=== PATIENT | male | born 1990 | race Caucasian/White ===

== ENCOUNTER 2017-02-23 02:15 | Emergency (ER) | payer OTHER ==
[2017-02-23 02:27] VITALS: RESP 18
--- NOTE | 2017-02-23 02:49 | ED ---
General Adult HPI - General Chief complaint: Wound/Laceration Stated complaint: Ankle Laceration Time Seen by Provider: 02/23/17 02:25 Source: patient, RN notes reviewed Mode of arrival: ambulatory Limitations: no limitations - History of Present Illness Initial comments: Patient is a pleasant 27-year-old male presenting to the emergency department complaining of laceration. Patient was going to bed when he stepped on a glass bowl. Patient states this was a large glass bowl and it did break. Patient sustained laceration to his right lateral ankle. Patient believes he lost a decent amount of blood and did feel near syncopal. Patient states he feels fine at this time except for laceration. Bleeding was active when patient arrived per nursing staff and they did apply a dressing. Patient states he soaked through 2 towels earlier. Last immunization for tetanus was less than 5 years. - Related Data Home Medications Medication Instructions Recorded Confirmed Albuterol Inhaler [Ventolin 1 - 2 puff INHALATION Q4-6H PRN 03/31/14 09/14/15 Inhaler] Dextroamphetamine/Amphetamine 30 mg PO BID 03/31/14 09/14/15 [Adderall] Previous Rx's Medication Instructions Recorded Hydrocodone/Acetaminophen [[place] 1 each PO Q4HR PRN #12 tab 08/21/15 5-325] Naproxen 500 mg PO Q12HR #30 tab 08/21/15 Methocarbamol [Robaxin-750] 750 mg PO TID PRN #30 tablet 09/06/15 predniSONE 50 mg PO DAILY #5 tab 09/14/15 traMADol HCl [Ultram] 50 mg PO Q4H PRN #15 tab 09/14/15 Cephalexin [Keflex] 500 mg PO QID #40 cap 02/23/17 Allergies Allergy/AdvReac Type Severity Reaction Status Date / Time Penicillins Allergy Unknown Verified 02/23/17 02:27 Review of Systems ROS Statement: Those systems with pertinent positive or pertinent negative responses have been documented in the HPI. ROS Other: All systems not noted in ROS Statement are negative. Constitutional: Denies: fever Eyes: Denies: eye pain ENT: Denies: ear pain Respiratory: Denies: cough Cardiovascular: Denies: chest pain Endocrine: Denies: fatigue Gastrointestinal: Denies: abdominal pain Genitourinary: Denies: dysuria Musculoskeletal: Denies: back pain Skin: Denies: rash Neurological: Denies: headache Past Medical History Past Medical History: Asthma Additional Past Medical History / Comment(s): back pain History of Any Multi-Drug Resistant Organisms: None Reported Past Surgical History: Adenoidectomy, Tonsillectomy Past Psychological History: ADD/ADHD Smoking Status: Never smoker Past Alcohol Use History: None Reported Past Drug Use History: None Reported General Exam Limitations: no limitations General appearance: alert, in no apparent distress Head exam: Present: atraumatic Eye exam: Present: normal appearance, PERRL ENT exam: Present: normal oropharynx Neck exam: Present: normal inspection Respiratory exam: Present: normal lung sounds bilaterally Cardiovascular Exam: Present: regular rate, normal rhythm Expanded Peripheral pulses: 2+: Posterior Tibialis (R), Posterior Tibialis (L), Dorsalis Pedis (R), Dorsalis Pedis (L) GI/Abdominal exam: Present: soft. Absent: tenderness Extremities exam: Present: other (Right lateral ankle posterior to the lateral malleolus with 3 cm laceration. Distally the extremity is neurovascularly intact. Hematomas present underneath without active bleeding. Achilles tendon is not involved. Good strength.) Neurological exam: Present: alert Psychiatric exam: Present: normal affect, normal mood Skin exam: Present: other (Laceration) Course Vital Signs 02/23/17 02/23/17 02/23/17 02:15 02:37 03:15 Temperature 97.0 F L Pulse Rate 72 64 65 Respiratory 18 20 18 Rate Blood Pressure 114/57 99/55 151/100 O2 Sat by Pulse 99 99 64 L Oximetry Procedures - Laceration Laceration #1 Consent Obtained: verbal consent Time Out Performed: Yes Indication: laceration Site: lower extremity Size (cm): 3 Description: linear Depth: simple, single layer Anesthetic Used: lidocaine 1% Pre-repair: wound explored, irrigated extensively Type of Sutures: nylon, other (Also placed 2 of 5-0 Vicryl subcutaneous) Size of Sutures: 4-0 Number of Sutures: 5 Technique: simple, interrupted Patient Tolerated Procedure: well, no complications Medical Decision Making - Radiology Data Radiology results: image reviewed (X-ray of the right ankle shows no acute findings. No foreign body.) Disposition Clinical Impression: Laceration Disposition: HOME SELF-CARE Condition: Stable Instructions: Laceration (ED), Care For Your Stitches (ED) Additional Instructions: Please follow-up with primary care physician in the next couple days for recheck. Suture removal in 12-14 days. Twice daily wash area with soap and water, apply antibiotic ointment, and bandage. Return for increased pain, weakness, redness, fever, swelling, worsening symptoms or other concerns. Prescriptions: Cephalexin [Keflex] 500 mg PO QID #40 cap Referrals: Nicko Monzon DO [Primary Care Provider] - 1-2 days Time of Disposition: 03:20
--- NOTE | 2017-02-23 03:16 | XR ---
EXAM: XR Right Ankle Complete, 3 or More Views CLINICAL HISTORY: Reason: Pain TECHNIQUE: Frontal, lateral and oblique views of the right ankle. COMPARISON: No relevant prior studies available. FINDINGS: Bones/joints: Unremarkable. No acute fracture. No dislocation. Soft tissues: Unremarkable. IMPRESSION: No acute findings
[2017-02-23] MEDS ORDERED: CEPHALEXIN 500 MG CAP PO STA (03:21)
[2017-02-23 03:53] VITALS: BP 103/74; PULSE 78; TEMP 97.8
== END 2017-02-23 03:48 | disposition home or self-care (01) ==
LOC: EC 02:15
DX: S91.011A Laceration without foreign body, right ankle, initial encounter (principal); F90.9 Attention-deficit hyperactivity disorder, unspecified type; Z88.0 Allergy status to penicillin; Z79.899 Other long term (current) drug therapy; W25.XXXA Contact with sharp glass, initial encounter
CPT/HCPCS: 12002; 99283

== ENCOUNTER 2018-01-08 12:44 | Emergency (ER) | payer OTHER ==
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
[2018-01-08 14:28] LABS: Amphetamine Screen,Urine Detected (NotDetected); Barbiturate Screen,Urine Not Detected (NotDetected); Benzodiazepines Screen,Urine Detected (NotDetected); Cocaine Screen,Urine Not Detected (NotDetected); Methadone Screen, Urine Not Detected (NotDetected); Opiate Screen,Urine Detected (NotDetected); Oxycodone Screen, Urine Not Detected (NotDetected); Phencyclidine Screen,Urine Not Detected (NotDetected); Tricyclic Antidepressant,Urine Not Detected (NotDetected); Urn Cannabinoid Scrn Detected (NotDetected)
[2018-01-08 15:35] LABS: Appearance,Urine Clear (Clear); Bilirubin,Urine Negative (Negative); Blood,Urine Negative (Negative); Color,Urine Light Yellow; Glucose,Urine (UA) Negative (Negative); Ketones,Urine Negative (Negative); Leukocyte Esterase,Urine Negative (Negative); Nitrite,Urine Negative (Negative); Protein,Urine Negative (Negative); Specific Gravity,Urine 1.011 (1.001-1.035); Urobilinogen,Urine <2.0 mg/dL (<2.0)
[2018-01-08 15:56] LABS: HGB 15.6 gm/dL (13.0-17.5); MCH 31.4 pg (25.0-35.0); MCV 92.4 fL (80.0-100.0); Platelet Count 206 k/uL (150-450); RBC 4.98 m/uL (4.30-5.90); RDW 13.2 % (11.5-15.5); WBC 6.7 k/uL (3.8-10.6)
[2018-01-08 16:05] LABS: ALT 30 U/L (21-72); AST 22 U/L (17-59); Albumin 4.4 g/dL (3.5-5.0); Alkaline Phosphatase 67 U/L (38-126); Anion Gap 13 mmol/L; Blood Urea Nitrogen 11 mg/dL (9-20); Calcium 9.2 mg/dL (8.4-10.2); Carbon Dioxide 26 mmol/L (22-30); Chloride 103 mmol/L (98-107); Glucose 119 mg/dL (74-99); Potassium 4.6 mmol/L (3.5-5.1); Sodium 142 mmol/L (137-145); Total Protein 7.1 g/dL (6.3-8.2)
[2018-01-08 16:39] LABS: Band Neutrophils % 1 %; Eosinophils # (M) 0.13 k/uL (0-0.7); Lymphocytes # (M) 1.74 k/uL (1.0-4.8); Neutrophils % (M) 68 %; Nucleated Red Blood Cells 0 /100 WBC (0-0); Reactive Lymphocytes Present; Total Cells Counted 100
[2018-01-08] MEDS ORDERED: LORazepam 1 MG TAB PO STA (21:07)
[2018-01-08 21:09] LABS: Amphetamine Screen,Urine Detected (NotDetected); Barbiturate Screen,Urine Not Detected (NotDetected); Benzodiazepines Screen,Urine Detected (NotDetected); Cocaine Screen,Urine Not Detected (NotDetected); Methadone Screen, Urine Not Detected (NotDetected); Opiate Screen,Urine Not Detected (NotDetected); Oxycodone Screen, Urine Not Detected (NotDetected); Phencyclidine Screen,Urine Not Detected (NotDetected); Tricyclic Antidepressant,Urine Not Detected (NotDetected); Urn Cannabinoid Scrn Detected (NotDetected)
[2018-01-09 01:35] VITALS: BP 106/64; PULSE 68; RESP 18; TEMP 97.1
== END 2018-01-09 01:35 ==
LOC: EC 12:44
DX: F29 Unspecified psychosis not due to a substance or known physiological condition (principal); F32.9 Major depressive disorder, single episode, unspecified; R45.851 Suicidal ideations; F22 Delusional disorders; J45.909 Unspecified asthma, uncomplicated; F90.9 Attention-deficit hyperactivity disorder, unspecified type; Z79.899 Other long term (current) drug therapy; Z88.0 Allergy status to penicillin
CPT/HCPCS: 36415; 80053; 80306; 81003; 82075; 85025; 99285

== ENCOUNTER 2018-01-24 02:21 | Emergency (ER) | payer OTHER ==
[2018-01-24 02:35] VITALS: BP 156/94; PULSE 122; RESP 18; TEMP 98.7
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
== END 2018-01-24 08:20 | disposition home or self-care (01) ==
LOC: EC 02:21
DX: S30.0XXA Contusion of lower back and pelvis, initial encounter (principal); F90.9 Attention-deficit hyperactivity disorder, unspecified type; J45.909 Unspecified asthma, uncomplicated; Z23 Encounter for immunization; Z79.899 Other long term (current) drug therapy; Z88.0 Allergy status to penicillin; V47.5XXA Car driver injured in collision with fixed or stationary object in traffic accident, initial encounter
CPT/HCPCS: 70450; 72110; 90471; 93005; 99284

== ENCOUNTER 2018-02-18 23:45 | Emergency (ER) | payer OTHER ==
[2018-02-19] MEDS ORDERED: SODIUM CHLORIDE 0.9% 1,000 ML IV STA (00:15)
[2018-02-19 00:29] LABS: HCT 38.7 % (39.0-53.0); HGB 13.2 gm/dL (13.0-17.5); MCHC 34.2 g/dL (31.0-37.0); MCV 90.8 fL (80.0-100.0); Mean Platelet Volume 7.2; Platelet Count 212 k/uL (150-450); RBC 4.26 m/uL (4.30-5.90); RDW 13.2 % (11.5-15.5); WBC 8.3 k/uL (3.8-10.6)
[2018-02-19 00:38] LABS: ALT 22 U/L (21-72); AST 14 U/L (17-59); Albumin 3.5 g/dL (3.5-5.0); Alcohol <10 mg/dL; Alkaline Phosphatase 62 U/L (38-126); Anion Gap 7 mmol/L; Blood Urea Nitrogen 13 mg/dL (9-20); Calcium 8.6 mg/dL (8.4-10.2); Carbon Dioxide 24 mmol/L (22-30); Chloride 109 mmol/L (98-107); Glucose 90 mg/dL (74-99); Lithium 0.3 mmol/L; Potassium 4.6 mmol/L (3.5-5.1); Sodium 140 mmol/L (137-145); Total Bilirubin 0.3 mg/dL (0.2-1.3); Total Protein 5.9 g/dL (6.3-8.2)
[2018-02-19 00:58] LABS: Lymphocytes # (M) 2.24 k/uL (1.0-4.8); Monocytes # (M) 0.42 k/uL (0-1.0); Neutrophils # (M) 5.15 k/uL (1.3-7.7); Neutrophils % (M) 62 %; Nucleated Red Blood Cells 0 /100 WBC (0-0); Total Cells Counted 100
[2018-02-19 01:00] LABS: Acetaminophen <10.0 ug/mL; Salicylate <1.0 mg/dL
[2018-02-19 03:47] LABS: Amphetamine Screen,Urine Not Detected (NotDetected); Barbiturate Screen,Urine Not Detected (NotDetected); Benzodiazepines Screen,Urine Detected (NotDetected); Cocaine Screen,Urine Not Detected (NotDetected); Methadone Screen, Urine Not Detected (NotDetected); Opiate Screen,Urine Not Detected (NotDetected); Oxycodone Screen, Urine Not Detected (NotDetected); Phencyclidine Screen,Urine Not Detected (NotDetected); Tricyclic Antidepressant,Urine Detected (NotDetected); Urn Cannabinoid Scrn Not Detected (NotDetected)
--- NOTE | 2018-02-19 05:09 | ED ---
General Adult HPI - General Chief complaint: Overdose Stated complaint: overdose Time Seen by Provider: 02/19/18 00:09 Source: patient, police, EMS, RN notes reviewed Mode of arrival: EMS Limitations: no limitations - History of Present Illness Initial comments: 28-year-old male presents to the emergency department for a chief complaint of overdose. Patient was found by grandmother at home and and he had overdosed on something. Patient admits to taking 1 mg of Ativan and 600 mg of lithium. Patient denies taking any other substances. Patient denies thoughts of suicide or harming himself. However, parents state that patient has been talking about killing himself over the past few weeks. Patient has no other complaints at this time including shortness of breath, chest pain, abdominal pain, nausea or vomiting, headache, or visual changes. - Related Data Home Medications Medication Instructions Recorded Confirmed Albuterol Inhaler [Ventolin 1 - 2 puff INHALATION Q4-6H PRN 03/31/14 01/08/18 Inhaler] Dextroamphetamine/Amphetamine 60 mg PO QAM 01/08/18 01/08/18 [Adderall Xr] Allergies Allergy/AdvReac Type Severity Reaction Status Date / Time Penicillins Allergy Unknown Verified 02/18/18 23:53 Review of Systems ROS Statement: Those systems with pertinent positive or pertinent negative responses have been documented in the HPI. ROS Other: All systems not noted in ROS Statement are negative. Past Medical History Past Medical History: Asthma Additional Past Medical History / Comment(s): back pain, History of Any Multi-Drug Resistant Organisms: None Reported Past Surgical History: Adenoidectomy, Tonsillectomy Past Psychological History: ADD/ADHD, Bipolar, Depression Smoking Status: Never smoker Past Alcohol Use History: Rare Past Drug Use History: None Reported, Marijuana General Exam Limitations: no limitations General appearance: in no apparent distress, obtunded Head exam: Present: atraumatic, normocephalic, normal inspection Eye exam: Present: normal appearance, PERRL. Absent: scleral icterus, conjunctival injection, nystagmus ENT exam: Present: normal exam, mucous membranes moist Respiratory exam: Present: normal lung sounds bilaterally. Absent: respiratory distress, wheezes, rales, rhonchi, stridor Cardiovascular Exam: Present: regular rate, normal rhythm, normal heart sounds. Absent: systolic murmur, diastolic murmur, rubs, gallop, clicks GI/Abdominal exam: Present: soft, normal bowel sounds. Absent: distended, tenderness, guarding, rebound, rigid Course Vital Signs 02/18/18 23:50 Temperature 97.8 F Pulse Rate 68 Respiratory 18 Rate Blood Pressure 104/51 O2 Sat by Pulse 98 Oximetry Medical Decision Making - Medical Decision Making 28-year-old male presents to the emergency department for a chief complaint of possible overdose. Patient was brought in by EMS after grandmother found him obtunded. Patient admits to taking 600 mg of lithium and 1 mg of Ativan. Denies any other substance use. Patient is alert to questioning in the emergency department and wakes to his name but does appear lethargic. CBC and CMP unremarkable. Serum alcohol less than 10. Tricyclic antidepressants and benzos detected in urine drug screen. Salicylates, acetaminophen negative. Patient was petitioned by his parents and was evaluated by EPS. On re-evaluation , patient is more alert and carrying on a conversation but still appears slightly lethargic. EPS RN and Dr. Mcgowan agreed that patient can be discharged home. They believe he is safe at this time and is denying thoughts of suicide. Patient will follow care plan given by psych coordinator. Patient must have a ride to go home when he is more alert as suggested by EPS RN. - Lab Data Result diagrams: 02/19/18 00:00 02/19/18 00:00 Lab Results 02/19/18 02/19/18 02/19/18 Range/Units 00:00 00:00 00:00 WBC 8.3 (3.8-10.6) k/uL RBC 4.26 L (4.30-5.90) m/uL Hgb 13.2 (13.0-17.5) gm/dL Hct 38.7 L (39.0-53.0) % MCV 90.8 (80.0-100.0) fL MCH 31.0 (25.0-35.0) pg MCHC 34.2 (31.0-37.0) g/dL RDW 13.2 (11.5-15.5) % Plt Count 212 (150-450) k/uL Neutrophils % (Manual) 62 % Lymphocytes % (Manual) 27 % Monocytes % (Manual) 5 % Eosinophils % (Manual) 6 % Neutrophils # (Manual) 5.15 (1.3-7.7) k/uL Lymphocytes # (Manual) 2.24 (1.0-4.8) k/uL Monocytes # (Manual) 0.42 (0-1.0) k/uL Eosinophils # (Manual) 0.50 (0-0.7) k/uL Nucleated RBCs 0 (0-0) /100 WBC Manual Slide Review Performed RBC Morphology Normal Sodium 140 (137-145) mmol/L Potassium 4.6 (3.5-5.1) mmol/L Chloride 109 H (98-107) mmol/L Carbon Dioxide 24 (22-30) mmol/L Anion Gap 7 mmol/L BUN 13 (9-20) mg/dL Creatinine 1.00 (0.66-1.25) mg/dL Est GFR (CKD-EPI)AfAm >90 (>60 ml/min/1.73 sqM) Est GFR (CKD-EPI)NonAf >90 (>60 ml/min/1.73 sqM) Glucose 90 (74-99) mg/dL Calcium 8.6 (8.4-10.2) mg/dL Total Bilirubin 0.3 (0.2-1.3) mg/dL AST 14 L (17-59) U/L ALT 22 (21-72) U/L Alkaline Phosphatase 62 (38-126) U/L Total Protein 5.9 L (6.3-8.2) g/dL Albumin 3.5 (3.5-5.0) g/dL Salicylates <1.0 mg/dL Urine Opiates Screen (NotDetected) Ur Oxycodone Screen (NotDetected) Urine Methadone Screen (NotDetected) Ur Propoxyphene Screen (NotDetected) Acetaminophen <10.0 ug/mL Ur Barbiturates Screen (NotDetected) U Tricyclic Antidepress (NotDetected) Ur Phencyclidine Scrn (NotDetected) Ur Amphetamines Screen (NotDetected) U Methamphetamines Scrn (NotDetected) U Benzodiazepines Scrn (NotDetected) [place] 0.3 mmol/L Urine Cocaine Screen (NotDetected) U Marijuana (THC) Screen (NotDetected) Serum Alcohol <10 mg/dL 07/23/18 Range/Units 03:25 WBC (3.8-10.6) k/uL RBC (4.30-5.90) m/uL Hgb (13.0-17.5) gm/dL Hct (39.0-53.0) % MCV (80.0-100.0) fL MCH (25.0-35.0) pg MCHC (31.0-37.0) g/dL RDW (11.5-15.5) % Plt Count (150-450) k/uL Neutrophils % (Manual) % Lymphocytes % (Manual) % Monocytes % (Manual) % Eosinophils % (Manual) % Neutrophils # (Manual) (1.3-7.7) k/uL Lymphocytes # (Manual) (1.0-4.8) k/uL Monocytes # (Manual) (0-1.0) k/uL Eosinophils # (Manual) (0-0.7) k/uL Nucleated RBCs (0-0) /100 WBC Manual Slide Review RBC Morphology Sodium (137-145) mmol/L Potassium (3.5-5.1) mmol/L Chloride (98-107) mmol/L Carbon Dioxide (22-30) mmol/L Anion Gap mmol/L BUN (9-20) mg/dL Creatinine (0.66-1.25) mg/dL Est GFR (CKD-EPI)AfAm (>60 ml/min/1.73 sqM) Est GFR (CKD-EPI)NonAf (>60 ml/min/1.73 sqM) Glucose (74-99) mg/dL Calcium (8.4-10.2) mg/dL Total Bilirubin (0.2-1.3) mg/dL AST (17-59) U/L ALT (21-72) U/L Alkaline Phosphatase (38-126) U/L Total Protein (6.3-8.2) g/dL Albumin (3.5-5.0) g/dL Salicylates mg/dL Urine Opiates Screen Not Detected (NotDetected) Ur Oxycodone Screen Not Detected (NotDetected) Urine Methadone Screen Not Detected (NotDetected) Ur Propoxyphene Screen Not Detected (NotDetected) Acetaminophen ug/mL Ur Barbiturates Screen Not Detected (NotDetected) U Tricyclic Antidepress Detected H (NotDetected) Ur Phencyclidine Scrn Not Detected (NotDetected) Ur Amphetamines Screen Not Detected (NotDetected) U Methamphetamines Scrn Not Detected (NotDetected) U Benzodiazepines Scrn Detected H (NotDetected) [place] mmol/L Urine Cocaine Screen Not Detected (NotDetected) U Marijuana (THC) Screen Not Detected (NotDetected) Serum Alcohol mg/dL Disposition Clinical Impression: Psychiatric complaint, Drug overdose Disposition: HOME SELF-CARE Condition: Good Instructions: Depression (ED), Benzodiazepine Overdose (ED) Additional Instructions: Please follow care plan discussed by psychiatric nurse. Please return to the emergency department if you've any worsening symptoms. Is patient prescribed a controlled substance at d/c from ED?: No Referrals: Socrates Zhou MD [STAFF PHYSICIAN] - 1-2 days Time of Disposition: 05:27
[2018-02-19 06:30] VITALS: RESP 16
[2018-02-19 07:12] VITALS: BP 108/49; PULSE 63; TEMP 97.9
== END 2018-02-19 07:08 | disposition home or self-care (01) ==
LOC: EC 23:45
DX: T42.4X1A Poisoning by benzodiazepines, accidental (unintentional), initial encounter (principal); R53.83 Other fatigue; T56.891A Toxic effect of other metals, accidental (unintentional), initial encounter; F90.9 Attention-deficit hyperactivity disorder, unspecified type; Z88.0 Allergy status to penicillin; Z79.899 Other long term (current) drug therapy; Y92.009 Unspecified place in unspecified non-institutional (private) residence as the place of occurrence of the external cause
CPT/HCPCS: 36415; 80053; 80178; 80306; 80320; 83520; 85025; 96360; 99285

== ENCOUNTER 2018-08-05 04:36 | Emergency (ER) | payer OTHER ==
[2018-08-05 04:49] VITALS: BP 160/89; PULSE 100; RESP 20; TEMP 97.9
[2018-08-05] MEDS ORDERED: LIDOCAINE 5% PATCH TOPICAL STA (05:25)
[2018-08-05] MEDS ORDERED: METHOCARBAMOL 750 MG TAB PO STA (05:25)
--- NOTE | 2018-08-05 05:39 | ED ---
Back Pain [facility] - General Chief Complaint: Back Pain/Injury Stated Complaint: Back Injury Time Seen by Provider: 08/05/18 05:05 Source: patient, family Limitations: no limitations - History of Present Illness Initial Comments: Mark is a 28-year-old male with a history of chronic back pain for which she was previously on long-term therapy of Conner and had injections in his back. However he is subsequently been take an off of his Conner and stopped seeing that physician that was doing the injections. He also reports that he was referred to pain management but the pain management doctor lost his license due to Medicare fraud so he has not been able to follow-up for urinary half. Patient reports that over the past week he has been moving, his is so she's not been able to help him with lifting anything so he's been doing a lot of heavy lifting and moving their home from [place] to another [facility]. Patient reports that his back is bothering him. He reports he hasn't been able to get good night sleep all week because his back aches during the night. Patient reports that tonight he couldn't sleep at all so he decided to walk to the emergency department from [place] [address] for evaluation. Patient reports in the past he's had improvement in his symptoms with muscle relaxer such as Flexeril and higher doses of gabapentin however he is currently been weaned off of his Conner and Adderall and he is on a low dose of gabapentin. Patient denies any weakness of the lower extremity's, any change in bowel or bladder habits, any saddle anesthesia. He reports he's been able to ambulate into his activities of daily living. He just has a constant aching in his back. He does report some radiation of pain from his right mid back down his leg. Patient reports that this pain is identical to his previous back pain. He reports he feels he is exacerbated by the heavy lifting his been doing. MD Complaint: back pain Onset/Timin -: week(s) Similar Symptoms Previously: Yes Place: home Radiation: right leg Severity: moderate Quality: aching Consistency: constant Improves With: movement Context: while lifting, turning/twisting, bending Associated Symptoms: denies other symptoms Treatments Prior to Arrival: prescription analgesics (Gabapentin) - Related Data Home Medications Medication Instructions Recorded Confirmed Albuterol Inhaler [Ventolin 1 - 2 puff INHALATION Q4-6H PRN 03/31/14 08/05/18 Inhaler] Dextroamphetamine/Amphetamine 60 mg PO QAM 01/08/18 08/05/18 [Adderall Xr] Previous Rx's Medication Instructions Recorded Ibuprofen [Motrin] 800 mg PO TID #60 tab 08/05/18 Lidocaine 5% Patch [Lidoderm] 1 patch TOPICAL DAILY #30 patch 08/05/18 Methocarbamol [Robaxin-750] 750 mg PO TID #30 tablet 08/05/18 Allergies Allergy/AdvReac Type Severity Reaction Status Date / Time Penicillins Allergy Unknown Verified 08/05/18 04:49 Review of Systems ROS Statement: Those systems with pertinent positive or pertinent negative responses have been documented in the HPI. ROS Other: All systems not noted in ROS Statement are negative. Past Medical History Past Medical History: Asthma, Seizure Disorder Additional Past Medical History / Comment(s): back pain, History of Any Multi-Drug Resistant Organisms: None Reported Past Surgical History: Adenoidectomy, Tonsillectomy Past Psychological History: ADD/ADHD, Bipolar, Depression Smoking Status: Never smoker Past Alcohol Use History: Rare Past Drug Use History: Marijuana General Exam - General Exam Comments Initial Comments: Physical Exam GENERAL: Patient is well-developed and well-nourished. Patient is nontoxic and well- hydrated and is in no distress. HENT: Normocephalic, Atraumatic. Poor dentition with multiple dental caries EYES: PERRL, EOMI PULMONARY: Unlabored respirations. No audible rales rhonchi or wheezing was noted. CARDIOVASCULAR: There is a regular rate and rhythm without any murmurs gallops or rubs. ABDOMEN: Soft and nontender with normal bowel sounds. SKIN: Skin is clear with no lesions or rashes and otherwise unremarkable. : Deferred NEUROLOGIC: Patient is alert and oriented x3. Moving all extremities spontaneously Normal strength and sensation of the bilateral lower extremities Normal patellar and Achilles reflexes MUSCULOSKELETAL: Normal extremities with adequate strength and full range of motion. No lower extremity swelling or edema. No calf tenderness. Normal strength lower extremities PSYCHIATRIC: Normal psychiatric evaluation. Limitations: no limitations Limitations: no limitations Course Vital Signs 08/05/18 04:45 Temperature 97.9 F Pulse Rate 100 Respiratory 20 Rate Blood Pressure 160/89 O2 Sat by Pulse 98 Oximetry Medical Decision Making - Medical Decision Making The patient was seen and evaluated history is obtained from patient This is a patient with a history of chronic back pain with right-sided sciatica who reports an exacerbation in his discomfort after heavy lifting throughout the week this week. This time I don't feel there is any imaging indicated. Patient has no red flag symptoms. Advised the patient we'll treat him with muscle relaxants and Lidoderm patches patient is agreeable to this. Patient also requests a prescription for high- dose Motrin as he doesn't have any currently. Prescriptions Were provided questions pertaining to care were answered return parameters were discussed patient was discharged home in stable condition with a referral to pain management. Disposition Clinical Impression: Lumbar radiculopathy Disposition: HOME SELF-CARE Condition: Stable Instructions: Acute Low Back Pain (ED) Is patient prescribed a controlled substance at d/c from ED?: No Referrals: None,Stated [Primary Care Provider] - 1-2 days Samy Elder MD [STAFF PHYSICIAN] - 1-2 days Time of Disposition: 05:32
== END 2018-08-05 06:05 | disposition home or self-care (01) ==
LOC: EC 04:36
DX: M54.16 Radiculopathy, lumbar region (principal); J45.909 Unspecified asthma, uncomplicated; F90.9 Attention-deficit hyperactivity disorder, unspecified type; Z87.39 Personal history of other diseases of the musculoskeletal system and connective tissue; Z79.899 Other long term (current) drug therapy; Z88.0 Allergy status to penicillin; X50.0XXA Overexertion from strenuous movement or load, initial encounter; Y92.009 Unspecified place in unspecified non-institutional (private) residence as the place of occurrence of the external cause
CPT/HCPCS: 99283

== ENCOUNTER 2019-06-05 16:25 | Emergency (ER) | payer OTHER ==
[2019-06-05 16:42] VITALS: RESP 18; TEMP 98.6
--- NOTE | 2019-06-05 17:08 | ED ---
General Adult HPI - General Source: patient, police, EMS, RN notes reviewed, old records reviewed Mode of arrival: EMS Limitations: no limitations <Socrates Rollins - Last Filed: 06/05/19 20:27> <Lesa Ruff - Last Filed: 06/06/19 21:57> - General Chief complaint: Extremity Injury, Lower Stated complaint: fall Time Seen by Provider: 06/05/19 16:40 - History of Present Illness Initial comments: This is a 29-year-old male who presents emergency Department complaining of bilateral foot pain. Patient states it's the outside of both feet that is tender. Patient states he jumped off a second [facility] in the [facility]. Patient states he was trying to hurt himself and he doesn't really know why. Patient st ates she is not suicidal. Patient states he does a lot of down things. Patient states he jumped down and the officers try to catch him but somehow he landed mostly on the right foot but also hit his left foot. Patient states the tenderness is on the lateral aspect of his right and left foot and he has a little bit of ankle pain on the right. Patient denies any headache patient denies any neck pain. Patient states he has a little brush burn on the side of his head on the right but he does not believe he struck his head hard. Patient denies any loss of consciousness or being days. Patient denies any chest pain or back pain. Patient denies any upper extremity pain. Patient denies any abdominal pain. Patient denies any hip pain. (Socrates Rollins) - Related Data Home Medications Medication Instructions Recorded Confirmed Divalproex [Depakote] 1,000 mg PO BID 06/05/19 06/05/19 Divalproex [Depakote] 250 mg PO HS 06/05/19 06/05/19 Octa Carbonate [Octa 450 mg PO BID 06/05/19 06/05/19 Carbonate ER] QUEtiapine FUMARATE [SEROquel] 200 mg PO HS 06/05/19 06/05/19 Allergies Allergy/AdvReac Type Severity Reaction Status Date / Time Penicillins Allergy FAMILY Verified 06/05/19 18:26 HISTORY Review of Systems ROS Other: All systems not noted in ROS Statement are negative. <Socrates Rollins - Last Filed: 06/05/19 20:27> ROS Other: All systems not noted in ROS Statement are negative. <Lesa Ruff - Last Filed: 06/06/19 21:57> ROS Statement: Those systems with pertinent positive or pertinent negative responses have been documented in the HPI. Past Medical History Past Medical History: Asthma, Seizure Disorder Additional Past Medical History / Comment(s): back pain, History of Any Multi-Drug Resistant Organisms: None Reported Past Surgical History: Adenoidectomy, Tonsillectomy Past Psychological History: ADD/ADHD, Bipolar, Depression Smoking Status: Never smoker Past Alcohol Use History: Rare Past Drug Use History: Marijuana <Socrates Rollins - Last Filed: 06/05/19 20:27> General Exam Limitations: no limitations <Socrates Rollins - Last Filed: 06/05/19 20:27> - General Exam Comments Initial Comments: GENERAL: Patient is well-developed and well-nourished. Patient is nontoxic and well- hydrated and is in mild distress. ENT: Neck is soft and supple. No significant lymphadenopathy is noted. Oropharynx is clear. Moist mucous membranes. Neck has full range of motion without elici ting any pain. EYES: The sclera were anicteric and conjunctiva were pink and moist. Extraocular movements were intact and pupils were equal round and reactive to light. Eyelids were unremarkable. PULMONARY: Unlabored respirations. Good breath sounds bilaterally. No audible rales rhonchi or wheezing was noted. CARDIOVASCULAR: There is a regular rate and rhythm without any murmurs gallops or rubs. ABDOMEN: Soft and nontender with normal bowel sounds. SKIN: Skin is clear with no lesions or rashes and otherwise unremarkable. NEUROLOGIC: Patient is alert and oriented x3. Cranial nerves II through XII are grossly intact. Motor and sensory are also intact. Normal speech, volume and content. Symmetrical smile. MUSCULOSKELETAL: Normal extremities with adequate strength and full range of motion. Patient has mild tenderness to the fifth metatarsal on both feet. LYMPHATICS: No significant lymphadenopathy is noted PSYCHIATRIC: Normal psychiatric evaluation. (Socrates Rollins) Course Vital Signs 06/05/19 06/05/19 06/05/19 16:36 17:53 19:03 Temperature 98.6 F Pulse Rate 81 74 78 Respiratory 18 18 18 Rate Blood Pressure 132/88 122/71 132/72 O2 Sat by Pulse 98 97 100 Oximetry Medical Decision Making <Socrates Rollins - Last Filed: 06/05/19 20:27> <Lesa Ruff - Last Filed: 06/06/19 21:57> - Medical Decision Making Patient did so people at the [facility] that he was suicidal he did not admit that to me but he will be evaluated by EPS X-rays the foot and ankle are negative Dr. Ruff will take over the care of this patient at 9 PM (Socrates Rollins) Patient was evaluated by EPS, patient did make suicidal statements, however patient is currently in [facility] with patient being transferred back to facility on suicide precautions. (Lesa Ruff) - Lab Data Lab Results 06/05/19 Range/Units 18:50 Urine Opiates Screen Not Detected (NotDetected) Ur Oxycodone Screen Not Detected (NotDetected) Urine Methadone Screen Not Detected (NotDetected) Ur Propoxyphene Screen Not Detected (NotDetected) Ur Barbiturates Screen Not Detected (NotDetected) U Tricyclic Antidepress Not Detected (NotDetected) Ur Phencyclidine Scrn Not Detected (NotDetected) Ur Amphetamines Screen Not Detected (NotDetected) U Methamphetamines Scrn Not Detected (NotDetected) U Benzodiazepines Scrn Not Detected (NotDetected) Urine Cocaine Screen Not Detected (NotDetected) U Marijuana (THC) Screen Not Detected (NotDetected) Disposition <Socrates Rollins - Last Filed: 06/05/19 20:27> Is patient prescribed a controlled substance at d/c from ED?: No <Lesa Ruff - Last Filed: 06/06/19 21:57> Clinical Impression: Depression Disposition: HOME SELF-CARE Condition: Stable Instructions (If sedation given, give patient instructions): Depression (DC) Referrals: [facility] [Primary Care Provider] - 1-2 days
--- NOTE | 2019-06-05 17:29 | XR ---
EXAMINATION TYPE: XR ankle complete RT DATE OF EXAM: 06/05/2019 COMPARISON: 02/23/2017 HISTORY: Trauma, pain TECHNIQUE: Three-view right ankle FINDINGS: Ankle mortise is intact. No acute fractures or dislocations are evident. Soft tissues are n ormal. Very tiny plantar calcaneal heel spur is present. IMPRESSION: 1. Normal three-view right ankle. 2. Follow-up exams can be performed 7-10 days from acute trauma for continued pain
--- NOTE | 2019-06-05 17:30 | XR ---
EXAMINATION TYPE: XR foot complete bilateral DATE OF EXAM: 06/05/2019 COMPARISON: None HISTORY: Pain, trauma TECHNIQUE: 3 views the bilateral feet are presented. FINDINGS: Alignment appears normal. Joint spaces are preserved. No acute fractures or dislocations ar e evident. Tiny right plantar calcaneal heel spur is present. IMPRESSION: 1. Tiny right plantar calcaneal heel spur. 2. Normal left foot 3. Follow-up exams of the ankle and feet can be performed 7-10 days from acute trauma for continued p ain.
[2019-06-05] MEDS ORDERED: IBUPROFEN 600 MG TAB PO STA (18:48)
[2019-06-05 19:04] VITALS: BP 132/72; PULSE 78
[2019-06-05 19:20] LABS: Amphetamine Screen,Urine Not Detected (NotDetected); Barbiturate Screen,Urine Not Detected (NotDetected); Benzodiazepines Screen,Urine Not Detected (NotDetected); Cocaine Screen,Urine Not Detected (NotDetected); Methadone Screen, Urine Not Detected (NotDetected); Opiate Screen,Urine Not Detected (NotDetected); Oxycodone Screen, Urine Not Detected (NotDetected); Phencyclidine Screen,Urine Not Detected (NotDetected); Tricyclic Antidepressant,Urine Not Detected (NotDetected); Urn Cannabinoid Scrn Not Detected (NotDetected)
--- NOTE | 2019-06-06 06:09 | CDI ---
Documentation Clarification OP Dear Lesa Ruff, DO Please provide clinical impression. Thank you, Mariann Patel Art Department Head If you have any questions, please contact [employer] [facility] at [phone] [facility]
== END 2019-06-05 22:43 | disposition home or self-care (01) ==
LOC: EC 16:25
DX: F32.9 Major depressive disorder, single episode, unspecified (principal); M79.672 Pain in left foot; M79.671 Pain in right foot; M25.571 Pain in right ankle and joints of right foot; T20.00XA Burn of unspecified degree of head, face, and neck, unspecified site, initial encounter; G40.909 Epilepsy, unspecified, not intractable, without status epilepticus; Z79.899 Other long term (current) drug therapy; Z88.0 Allergy status to penicillin; Y92.149 Unspecified place in prison as the place of occurrence of the external cause
CPT/HCPCS: 80306; 82075; 99285

== ENCOUNTER 2020-01-24 14:31 | Emergency (ER) | payer OTHER ==
[2020-01-24 14:49] VITALS: RESP 18
--- NOTE | 2020-01-24 15:09 | ED ---
General Adult HPI - General Chief complaint: Seizure Stated complaint: seizure Time Seen by Provider: 01/24/20 14:57 Source: patient, EMS Mode of arrival: EMS Limitations: no limitations - History of Present Illness Initial comments: Dictation was produced using [employer] dictation software. please excuse any grammatical, word or spelling errors. This patient was cared for during a federal and state declared state of emergency secondary to Covid 19 Chief Complaint: 30-year-old male past medical history of seizures presents after seizure. History of Present Illness: 30-year-old male who has past medical history of epilepsy. He was brought to the emergency department today for seizures. Patient states he is currently a resident at [facility] for opiate and alcohol recovery. Today states that he started feeling or like symptoms. He was told to sit down shortly after patient does not recall what happened he woke up in the ambulance. According to EMS patient was noted to have tonic-clonic activity. Patient has a history of epilepsy. He takes thousand milligrams of Depakote at night. He has not had his seizure medications adjusted. He does not have a neurologist. Medical staff at [facility] and Dr. Mclaughlin manage his seizure medications. Patient states he does not like me" and he feels like it's not working. 3 weeks ago patient also had a seizure. Patient last alcohol intake was 10 days ago. Patient has never had a alcohol withdrawal seizure. Patient states he has had neck and face pain. He states he hit his head on the wall. The ROS documented in this emergency department record has been reviewed and confirmed by me. Those systems with pertinent positive or negative responses have been documented in the HPI. All other systems are other negative and/or noncontributory. PHYSICAL EXAM: General Impression: Alert and oriented x3, not in acute distress HEENT: Normocephalic atraumatic, extra-ocular movements intact, pupils equal and reactive to light bilaterally, mucous membranes moist, tenderness with palpation of the C-spine Cardiovascular: Heart regular rate and rhythm Chest: Able to complete full sentences, no retractions, no tachypnea Abdomen: abdomen soft, non-tender, non-distended, no organomegaly Musculoskeletal: Pulses present and equal in all extremities, no peripheral flor ma Motor: no focal deficits noted Neurological: CN II-XII grossly intact, no focal motor or sensory deficits noted, no hyperreflexia Skin: Intact with no visualized rashes Psych: Normal affect and mood ED course:30 y Old male past medical history of epilepsy presents after seizure. Vital signs upon arrival are within acceptable limits. Laboratory evaluation obtained. CBC, metabolic panel is unremarkable. Valproic acid level 67.3 within therapeutic limits. Patient observed in emergency depa rtment without any recurrence of seizures. Scan of the brain, face shows no acute processes. C-collar was cleared. Patient is well-appearing. At approximately 4:30 PM case was discussed with Dr. Clay of neurology. It was discussed with Dr. Gorman that patient's seizure threshold is likely secondary to stress from detox concerning patient is at [facility] for opiate and alcohol detoxification. Dr. Clay recommends that patient typical regimen be changed to 250 mg of extended release Depakote in the morning and 1000 mg of extended release Depakote at night. Discussed conversation with neurologist to the patient. Patient understandable and agreeable. Patient clear for discharge. He is strongly advised to follow-up with primary care doctor or which ever physician is managing his seizures. EKG interpretation: Ventricular rate 60, normal sinus rhythm,. Interval 152, QRS 90, QTC 416. There are ST elevations with concavity facing upwards consistent with benign early repolarization.. No RI prolongation, no QTC prolongation, no ST or T-wave changes noted. EKG compared to when his symptom 16 showing no changes. Overall, this EKG is unremarkable - Related Data Home Medications Medication Instructions Recorded Confirmed Divalproex [Depakote] 1,000 mg PO BID 06/05/19 06/05/19 Divalproex [Depakote] 250 mg PO HS 06/05/19 06/05/19 [place] Carbonate [[place] 450 mg PO BID 06/05/19 06/05/19 Carbonate ER] QUEtiapine FUMARATE [SEROquel] 200 mg PO HS 06/05/19 06/05/19 Previous Rx's Medication Instructions Recorded Divalproex ER [Depakote ER] 1,000 mg PO DAILY 24 Days #01/24/20 tab.er.24h Divalproex ER [Depakote ER] 250 mg PO QAM 24 Days #01/24/20 tab.er.24h Allergies Allergy/AdvReac Type Severity Reaction Status Date / Time Penicillins Allergy FAMILY Verified 06/05/19 18:26 HISTORY Review of Systems ROS Statement: Those systems with pertinent positive or pertinent negative responses have been documented in the HPI. ROS Other: All systems not noted in ROS Statement are negative. Past Medical History Past Medical History: Asthma, Seizure Disorder Additional Past Medical History / Comment(s): back pain, History of Any Multi-Drug Resistant Organisms: None Reported Past Surgical History: Adenoidectomy, Tonsillectomy Past Psychological History: ADD/ADHD, Anxiety, Bipolar, Depression, PTSD Smoking Status: Current every day smoker Past Alcohol Use History: Daily, Rare Past Drug Use History: Heroin, Marijuana, Methamphetamine, Opiates General Exam Limitations: no limitations Course Vital Signs 01/24/20 14:34 Temperature 98.5 F Pulse Rate 70 Respiratory 18 Rate Blood Pressure 127/84 O2 Sat by Pulse 96 Oximetry Medical Decision Making - Lab Data Result diagrams: 01/24/20 15:10 01/24/20 15:05 Lab Results 01/24/20 01/24/20 01/24/20 Range/Units 15:05 15:10 15:19 WBC 6.1 (3.8-10.6) k/uL RBC 5.14 (4.30-5.90) m/uL Hgb 16.1 (13.0-17.5) gm/dL Hct 47.5 (39.0-53.0) % MCV 92.6 (80.0-100.0) fL MCH 31.4 (25.0-35.0) pg MCHC 33.9 (31.0-37.0) g/dL RDW 13.6 (11.5-15.5) % Plt Count 159 (150-450) k/uL Neutrophils % (Manual) 47 % Lymphocytes % (Manual) 33 % Monocytes % (Manual) 17 % Eosinophils % (Manual) 2 % Basophils % (Manual) 1 % Neutrophils # (Manual) 2.87 (1.3-7.7) k/uL Lymphocytes # (Manual) 2.01 (1.0-4.8) k/uL Monocytes # (Manual) 1.04 H (0-1.0) k/uL Eosinophils # (Manual) 0.12 (0-0.7) k/uL Basophils # (Manual) 0.06 (0-0.2) k/uL Nucleated RBCs 0 (0-0) /100 WBC Manual Slide Review Performed RBC Morphology Normal Sodium 138 (137-145) mmol/L Potassium 5.2 H (3.5-5.1) mmol/L Chloride 104 (98-107) mmol/L Carbon Dioxide 25 (22-30) mmol/L Anion Gap 9 mmol/L BUN 18 (9-20) mg/dL Creatinine 0.97 (0.66-1.25) mg/dL Est GFR (CKD-EPI)AfAm >90 (>60 ml/min/1.73 sqM) Est GFR (CKD-EPI)NonAf >90 (>60 ml/min/1.73 sqM) Glucose 99 (74-99) mg/dL POC Glucose (mg/dL) 100 H (75-99) mg/dL POC Glu [employer] ID Rhiannon Royal Calcium 9.4 (8.4-10.2) mg/dL Valproic Acid 67.3 ug/mL Disposition Clinical Impression: Seizure Disposition: HOME SELF-CARE Condition: Good Instructions (If sedation given, give patient instructions): Recurrent Seizures in Adults (ED) Additional Instructions: Per neurology recommendations, Dr. Clay, we would like you to change her dosing regimen of Depakote to 250 mg extended release in the morning and 1000 mg extended release at night Prescriptions: Divalproex ER [Depakote ER] 250 mg PO QAM 24 Days #24 tab.er.24h Divalproex ER [Depakote ER] 1,000 mg PO DAILY 24 Days #24 tab.er.24h Is patient prescribed a controlled substance at d/c from ED?: No Referrals: [facility] [Primary Care Provider] - 1-2 days Time of Disposition: 16:42
[2020-01-24 15:20] LABS: Glucose,Whole Blood 100 mg/dL (75-99)
[2020-01-24 15:31] LABS: African American GFR (CKD) >90 (>60 ml/min/1.73 sqM); Anion Gap 9 mmol/L; Blood Urea Nitrogen 18 mg/dL (9-20); Calcium 9.4 mg/dL (8.4-10.2); Carbon Dioxide 25 mmol/L (22-30); Chloride 104 mmol/L (98-107); Glucose 99 mg/dL (74-99); Non-African American GFR(CKD) >90 (>60 ml/min/1.73 sqM); Potassium 5.2 mmol/L (3.5-5.1); Sodium 138 mmol/L (137-145)
[2020-01-24 15:36] LABS: Valproic Acid (Depakene) 67.3 ug/mL
[2020-01-24 15:44] LABS: HCT 47.5 % (39.0-53.0); HGB 16.1 gm/dL (13.0-17.5); MCH 31.4 pg (25.0-35.0); MCHC 33.9 g/dL (31.0-37.0); MCV 92.6 fL (80.0-100.0); Mean Platelet Volume 8.7; Platelet Count 159 k/uL (150-450); RBC 5.14 m/uL (4.30-5.90); RDW 13.6 % (11.5-15.5); WBC 6.1 k/uL (3.8-10.6)
--- NOTE | 2020-01-24 15:57 | CT ---
EXAMINATION TYPE: CT brain osbaldo smith DATE OF EXAM: 01/24/2020 COMPARISON: 01/24/2018 HISTORY: fall, seizure CT DLP: combined DLP 1107.[address] Brain: Unenhanced CT of the brain was performed. The ventricles, basal cisterns and sulci overlying the cerebral convexities demonstrate a normal appe arance. There is no evidence for intracranial hemorrhage or sulcal effacement. No mass effects are seen. If symptoms persist consider MRI. Osseous calvarium is intact. IMPRESSION: No acute intracranial process CT Cervical Spine: Unenhanced CT of the cervical spine was performed with bone and soft tissue window settings submitted . Coronal and sagittal reconstruction is obtained. There is normal alignment and prevertebral soft tissues. I do not see evidence for fracture or sublu xation. No significant degenerative changes are present. The lung apices are clear. IMPRESSION: No evidence for acute fracture or subluxation of the cervical spine.
--- NOTE | 2020-01-24 16:01 | CT ---
EXAMINATION TYPE: CT facial bones wo con DATE OF EXAM: 01/24/2020 COMPARISON: 07/03/2011 HISTORY: fall, seizure CT DLP: combined DLP 1107.[address] of the facial bones was performed in the axial and coronal planes. Bone and soft tissu e window settings are submitted. No significant soft tissue swelling is appreciated. I do not see evidence for displaced facial bone fracture or depressed facial bone fracture. Remote nasal spine fracture is noted. The globes are intact. Paranasal sinuses are well-aerated. IMPRESSION: 1. No evidence for acute depressed or displaced facial bone fracture.
[2020-01-24 16:32] LABS: Basophils # (M) 0.06 k/uL (0-0.2); Eosinophils # (M) 0.12 k/uL (0-0.7); Lymphocytes # (M) 2.01 k/uL (1.0-4.8); Monocytes # (M) 1.04 k/uL (0-1.0); Neutrophils # (M) 2.87 k/uL (1.3-7.7); Neutrophils % (M) 47 %; Nucleated Red Blood Cells 0 /100 WBC (0-0); Total Cells Counted 100
[2020-01-24 17:18] VITALS: BP 121/68; PULSE 65; TEMP 98.1
== END 2020-01-24 17:22 | disposition home or self-care (01) ==
LOC: EC 14:31
DX: G40.909 Epilepsy, unspecified, not intractable, without status epilepticus (principal); F41.9 Anxiety disorder, unspecified; F31.9 Bipolar disorder, unspecified; F17.200 Nicotine dependence, unspecified, uncomplicated; Z79.899 Other long term (current) drug therapy; Z88.0 Allergy status to penicillin
CPT/HCPCS: 36415; 70450; 70486; 72125; 80048; 80164; 85025; 93005; 99284

== ENCOUNTER 2020-05-05 10:17 | Emergency (ER) | payer OTHER ==
[2020-05-05 10:29] VITALS: BP 128/83; PULSE 100; RESP 18; TEMP 97.2
--- NOTE | 2020-05-05 10:45 | ED ---
Back Pain HPI - General Chief Complaint: Back Pain/Injury Stated Complaint: Back injury Time Seen by Provider: 05/05/20 10:31 Source: patient, RN notes reviewed Limitations: no limitations - History of Present Illness Initial Comments: 30-year-old male present emergency Department chief complaint low back pain. Patient's disease exacerbated his back few days ago. He has a chronic history denies any bowel bladder incontinence or retention of saddle anesthesias. Patient states pain is worse with movement better at rest. Patient has chronic radicular symptoms on his right leg which has not worsened usual. Patient states he has no difficulty ambulate and does not need any cyst devices. Patient states that he was working with his dad when he injured his back. - Related Data Home Medications Medication Instructions Recorded Confirmed Divalproex [Depakote] 1,000 mg PO BID 06/05/19 06/05/19 Divalproex [Depakote] 250 mg PO HS 06/05/19 06/05/19 [place] Carbonate [[place] 450 mg PO BID 06/05/19 06/05/19 Carbonate ER] QUEtiapine FUMARATE [SEROquel] 200 mg PO HS 06/05/19 06/05/19 Previous Rx's Medication Instructions Recorded Divalproex ER [Depakote ER] 1,000 mg PO DAILY 24 Days #24 01/24/20 tab.er.24h Divalproex ER [Depakote ER] 250 mg PO QAM 24 Days #24 01/24/20 tab.er.24h Cyclobenzaprine [Flexeril] 10 mg PO TID PRN #15 tab 05/05/20 Gabapentin [Neurontin] 300 mg PO BID #14 cap 05/05/20 predniSONE 50 mg PO DAILY #5 tab 05/05/20 Allergies Allergy/AdvReac Type Severity Reaction Status Date / Time Penicillins Allergy FAMILY Verified 05/05/20 10:29 HISTORY Review of Systems ROS Statement: Those systems with pertinent positive or pertinent negative responses have been documented in the HPI. ROS Other: All systems not noted in ROS Statement are negative. Past Medical History Past Medical History: Asthma, Seizure Disorder Additional Past Medical History / Comment(s): back pain, History of Any Multi-Drug Resistant Organisms: None Reported Past Surgical History: Adenoidectomy, Tonsillectomy Past Psychological History: ADD/ADHD, Anxiety, Bipolar, Depression, PTSD Smoking Status: Current some day smoker Past Alcohol Use History: None Reported Past Drug Use History: Marijuana General Exam Limitations: no limitations General appearance: alert, in no apparent distress Head exam: Present: atraumatic, normocephalic, normal inspection Eye exam: Present: normal appearance, PERRL, EOMI. Absent: scleral icterus, conjunctival injection, periorbital swelling Respiratory exam: Present: normal lung sounds bilaterally. Absent: respiratory distress, wheezes, rales, rhonchi, stridor Cardiovascular Exam: Present: regular rate, normal rhythm, normal heart sounds. Absent: systolic murmur, diastolic murmur, rubs, gallop, clicks GI/Abdominal exam: Present: soft, normal bowel sounds. Absent: distended, tenderness, guarding, rebound, rigid Extremities exam: Present: other (Lower extremity strength equal bilaterally neurovascular intact equal color equal warmth there is mild pain with straight leg raise) Back exam: Present: full ROM, tenderness, paraspinal tenderness. Absent: CVA tenderness (R), CVA tenderness (L), vertebral tenderness Neurological exam: Present: reflexes normal. Absent: motor sensory deficit Course Vital Signs 05/05/20 10:26 Temperature 97.2 F L Pulse Rate 100 Respiratory 18 Rate Blood Pressure 128/83 O2 Sat by Pulse 100 Oximetry Medical Decision Making - Medical Decision Making 30-year-old male with chronic back issues presented for acute exacerbation. He is neurologically intact with no red flag symptoms. Patient will be treated for acute exacerbation. We'll not use any narcotics that he's had in the past and weaned himself off. Patient has used gabapentin with better results. Patient without a short course is a controlled substance patient instructed about this. Patient provided steroids, muscle relaxer. Disposition Clinical Impression: Acute exacerbation of chronic low back pain, Strain of lumbar region Disposition: HOME SELF-CARE Condition: Stable Instructions (If sedation given, give patient instructions): Acute Low Back Pain (ED) Additional Instructions: Please return to the Emergency Department if symptoms worsen or any other concerns. Prescriptions: Cyclobenzaprine [Flexeril] 10 mg PO TID PRN #15 tab PRN Reason: Muscle Spasm Gabapentin [Neurontin] 300 mg PO BID #14 cap predniSONE 50 mg PO DAILY #5 tab Is patient prescribed a controlled substance at d/c from ED?: Yes When asked, does pt state using other controlled substances?: No If prescribed controlled substance>3 days was MAPS reviewed?: Prescribed <3 Days Referrals: Nirav Mclaughlin MD [Primary Care Provider] - 1-2 days Samy Elder MD [STAFF PHYSICIAN] - 1-2 days Time of Disposition: 10:44
== END 2020-05-05 10:59 | disposition home or self-care (01) ==
LOC: EC 10:17
DX: S39.012A Strain of muscle, fascia and tendon of lower back, initial encounter (principal); G89.29 Other chronic pain; F17.200 Nicotine dependence, unspecified, uncomplicated; F41.9 Anxiety disorder, unspecified; F31.9 Bipolar disorder, unspecified; F43.10 Post-traumatic stress disorder, unspecified; G40.909 Epilepsy, unspecified, not intractable, without status epilepticus; Z79.899 Other long term (current) drug therapy; Z88.0 Allergy status to penicillin; X50.0XXA Overexertion from strenuous movement or load, initial encounter; Y93.89 Activity, other specified
CPT/HCPCS: 99283

== ENCOUNTER 2020-06-17 21:59 | Emergency (ER) | payer OTHER ==
--- NOTE | 2020-06-17 23:16 | ED ---
Medical Decision Making - Radiology Data Radiology results: report reviewed, image reviewed (Chest x-rays negative for ac skull valley disease) - Medical Decision Making The patient's care and respect to Dr. Marroquin at our shift change (Rickey Velázquez) 30 male for evaluation regards to possible foreign body ingestion, no foreign body noted on x-ray and patient can be discharged home (Socrates Marroquin) Disposition Is patient prescribed a controlled substance at d/c from ED?: No Clinical Impression: Normal exam Disposition: HOME SELF-CARE Condition: Fair Instructions (If sedation given, give patient instructions): Normal Exam (ED) Referrals: Nirav Mclaughlin MD [Primary Care Provider] - 1-2 days
--- NOTE | 2020-06-17 23:42 | XR ---
EXAMINATION TYPE: XR chest 1V portable DATE OF EXAM: 06/17/2020 COMPARISON: NONE HISTORY: Foreign body TECHNIQUE: Single view FINDINGS: Heart and mediastinum are normal. Lungs are clear. Diaphragm is normal. Bony thorax appears normal. The pulmonary vascularity is normal. There is no evidence of radiopaque foreign body. IMPRESSION: No evidence of a foreign body. No cardiopulmonary disease.
--- NOTE | 2020-06-18 00:10 | ED ---
Psych HPI - General Chief Complaint: Psychiatric Symptoms Stated Complaint: mental health Time Seen by Provider: 06/17/20 22:13 Source: patient, police, EMS, RN notes reviewed, old records reviewed Mode of arrival: EMS - History of Present Illness Initial Comments: This is a 28-year-old male incarcerated and in mental health seen a swallowed a razor blade. No other illness or difficulty no coughing up blood and no shortness of breath no other symptoms. MD Complaint: other (States he swallowed a razor blade) -: unknown Associated Psychiatric Symptoms: none History of same: No Quality: constant Improves With: none Worsens With: none Associated Symptoms: denies other symptoms Treatments Prior to Arrival: none - Related Data Home Medications Medication Instructions Recorded Confirmed QUEtiapine FUMARATE [SEROquel] 400 mg PO HS 06/05/19 05/05/20 Albuterol Inhaler [Ventolin Hfa 1 puff INHALATION RT-Q4H PRN 05/05/20 05/05/20 Inhaler] Depakote 1000mg 1,000 mg PO BID 05/05/20 05/05/20 Divalproex Sodium [Depakote] 500 mg PO BID 05/05/20 05/05/20 Ibuprofen [Motrin] 800 mg PO Q8H PRN 05/05/20 05/05/20 buPROPion XL [Wellbutrin Xl] 150 mg PO DAILY 05/05/20 05/05/20 Previous Rx's Medication Instructions Recorded Cyclobenzaprine [Flexeril] 10 mg PO TID PRN #15 tab 05/05/20 Gabapentin [Neurontin] 300 mg PO BID #14 cap 05/05/20 predniSONE 50 mg PO DAILY #5 tab 05/05/20 Allergies Allergy/AdvReac Type Severity Reaction Status Date / Time Penicillins Allergy FAMILY Verified 05/05/20 10:45 HISTORY Review of Systems ROS Statement: Those systems with pertinent positive or pertinent negative responses have been documented in the HPI. ROS Other: All systems not noted in ROS Statement are negative. Past Medical History Past Medical History: Asthma, Seizure Disorder Additional Past Medical History / Comment(s): back pain, History of Any Multi-Drug Resistant Organisms: None Reported Past Surgical History: Adenoidectomy, Tonsillectomy Past Psychological History: ADD/ADHD, Anxiety, Bipolar, Depression, PTSD Smoking Status: Former smoker Past Alcohol Use History: None Reported Past Drug Use History: Marijuana General Exam Limitations: no limitations General appearance: alert, in no apparent distress Head exam: Present: atraumatic, normocephalic, normal inspection Eye exam: Present: normal appearance, PERRL, EOMI. Absent: scleral icterus, conjunctival injection, periorbital swelling ENT exam: Present: normal exam, mucous membranes moist Neck exam: Present: normal inspection. Absent: tenderness, meningismus, lymphadenopathy Respiratory exam: Present: normal lung sounds bilaterally. Absent: respiratory distress, wheezes, rales, rhonchi, stridor Cardiovascular Exam: Present: regular rate, normal rhythm, normal heart sounds. Absent: systolic murmur, diastolic murmur, rubs, gallop, clicks GI/Abdominal exam: Present: soft, normal bowel sounds. Absent: distended, tenderness, guarding, rebound, rigid Extremities exam: Present: normal inspection, full ROM, normal capillary refill. Absent: tenderness, pedal edema, joint swelling, calf tenderness Back exam: Present: normal inspection Neurological exam: Present: alert, oriented X3, CN II-XII intact Psychiatric exam: Present: normal affect, normal mood Skin exam: Present: warm, dry, intact, normal color. Absent: rash Course Vital Signs 06/17/20 06/18/20 22:02 00:00 Temperature 98.6 F 97.7 F Pulse Rate 95 76 Respiratory 19 12 Rate Blood Pressure 129/81 114/82 O2 Sat by Pulse 99 98 Oximetry - Reevaluation(s) Reevaluation #1: 06/18/20 00:09 Records reviewed Reevaluation #2: 06/18/20 00:09 patient and PD informed of results, questions answered Reevaluation #3: 06/18/20 00:10 Patient. Return to incarceration Medical Decision Making - Medical Decision Making 30 male can return to incarceration, no foreign body noted on x-ray - Radiology Data Radiology results: report reviewed (Chest x-rays negative for acute disease), image reviewed Disposition Clinical Impression: Normal exam Disposition: HOME SELF-CARE Condition: Fair Instructions (If sedation given, give patient instructions): Normal Exam (ED) Is patient prescribed a controlled substance at d/c from ED?: No Referrals: Nirav Mclaughlin MD [Primary Care Provider] - 1-2 days
[2020-06-18 00:39] VITALS: BP 106/65; PULSE 78; RESP 18; TEMP 97.8
== END 2020-06-18 00:26 | disposition home or self-care (01) ==
LOC: EC 21:59
DX: T18.9XXA Foreign body of alimentary tract, part unspecified, initial encounter (principal); J45.909 Unspecified asthma, uncomplicated; F41.9 Anxiety disorder, unspecified; F31.9 Bipolar disorder, unspecified; F90.9 Attention-deficit hyperactivity disorder, unspecified type; G40.909 Epilepsy, unspecified, not intractable, without status epilepticus; Z79.899 Other long term (current) drug therapy; Z88.0 Allergy status to penicillin; Z87.891 Personal history of nicotine dependence; W26.8XXA Contact with other sharp object(s), not elsewhere classified, initial encounter
CPT/HCPCS: 71045; 99284

== ENCOUNTER 2020-06-18 11:39 | Inpatient (IN) | payer OTHER ==
--- NOTE | 2020-06-18 12:45 | ED ---
General Adult HPI - General Chief complaint: Psychiatric Symptoms Stated complaint: Mental Health Time Seen by Provider: 06/18/20 12:00 Source: patient, police, RN notes reviewed, old records reviewed Mode of arrival: ambulatory Limitations: no limitations - History of Present Illness Initial comments: This is a 30-year-old male who presents emergency Department because he states he's been trying to kill himself. Patient states she made an attempt yesterday himself and then swallowed half of a razor blade. Patient states he came to the emergency department and then they were sent back to the assisted. Patient has been petition to be evaluated again today. Patient still feeling depressed and suicidal. Patient denies any physical complaints other than a sore throat. Patient denies any difficulty breathing shortest breath per patient denies any chest pain or palpitations. - Related Data Home Medications Medication Instructions Recorded Confirmed QUEtiapine FUMARATE [SEROquel] 400 mg PO HS 06/05/19 06/18/20 Divalproex Sodium [Depakote] 500 mg PO QAM 05/05/20 06/18/20 Divalproex Sodium [Depakote] 1,000 mg PO HS 06/18/20 06/18/20 buPROPion XL [Wellbutrin Xl] 300 mg PO DAILY 06/18/20 06/18/20 Allergies Allergy/AdvReac Type Severity Reaction Status Date / Time Penicillins Allergy FAMILY Verified 06/18/20 13:21 HISTORY Review of Systems ROS Statement: Those systems with pertinent positive or pertinent negative responses have been documented in the HPI. ROS Other: All systems not noted in ROS Statement are negative. Past Medical History Past Medical History: Asthma, Seizure Disorder Additional Past Medical History / Comment(s): back pain, History of Any Multi-Drug Resistant Organisms: None Reported Past Surgical History: Adenoidectomy, Tonsillectomy Past Psychological History: ADD/ADHD, Anxiety, Bipolar, Depression, PTSD Smoking Status: Former smoker Past Alcohol Use History: None Reported Past Drug Use History: Marijuana General Exam - General Exam Comments Initial Comments: GENERAL: Patient is well-developed and well-nourished. Patient is nontoxic and well- hydrated and is in no acute distress. ENT: Neck is soft and supple. No significant lymphadenopathy is noted. Oropharynx is clear. Moist mucous membranes. Neck has full range of motion without eliciting any pain. EYES: The sclera were anicteric and conjunctiva were pink and moist. Extraocular movements were intact and pupils were equal round and reactive to light. Eyelids were unremarkable. PULMONARY: Unlabored respirations. Good breath sounds bilaterally. No audible rales rhonchi or wheezing was noted. CARDIOVASCULAR: There is a regular rate and rhythm without any murmurs gallops or rubs. ABDOMEN: Soft and nontender with normal bowel sounds. SKIN: Skin is clear with no lesions or rashes and otherwise unremarkable. NEUROLOGIC: Patient is alert and oriented x3. Cranial nerves II through XII are grossly intact. Motor and sensory are also intact. Normal speech, volume and content. Symmetrical smile. MUSCULOSKELETAL: Normal extremities with adequate strength and full range of motion. LYMPHATICS: No significant lymphadenopathy is noted PSYCHIATRIC: Patient is depressed and suicidal Limitations: no limitations Course Vital Signs 06/18/20 11:54 Temperature 97.9 F Pulse Rate 71 Respiratory 18 Rate Blood Pressure 107/71 O2 Sat by Pulse 99 Oximetry Medical Decision Making - Medical Decision Making Patient's chest x-ray showed no foreign body. Soft tissue neck showed no foreign body. KUB shows a razor blade in the small intestines I spoke with Dr. Riley she's going to admit the patient and we will get psych consult to the floor - Lab Data Lab Results 06/18/20 Range/Units 13:45 Urine Opiates Screen Not Detected (NotDetected) Ur Oxycodone Screen Not Detected (NotDetected) Urine Methadone Screen Not Detected (NotDetected) Ur Propoxyphene Screen Not Detected (NotDetected) Ur Barbiturates Screen Not Detected (NotDetected) U Tricyclic Antidepress Detected H (NotDetected) Ur Phencyclidine Scrn Not Detected (NotDetected) Ur Amphetamines Screen Not Detected (NotDetected) U Methamphetamines Scrn Not Detected (NotDetected) U Benzodiazepines Scrn Not Detected (NotDetected) Urine Cocaine Screen Not Detected (NotDetected) U Marijuana (THC) Screen Not Detected (NotDetected) Disposition Clinical Impression: Suicidal ideation, Depression, Foreign body in intestine Disposition: ADMITTED IP TO THIS HOSP Referrals: Nirav Mclaughlin MD [Primary Care Provider] - 1-2 days Time of Disposition: 16:09
--- NOTE | 2020-06-18 13:28 | XR ---
EXAMINATION TYPE: XR chest 1V DATE OF EXAM: 06/18/2020 COMPARISON: NONE HISTORY: Possible foreign body TECHNIQUE: Single frontal view of the chest is obtained. FINDINGS: There is no focal air space opacity, pleural effusion, or pneumothorax seen. The cardiac silhouette size is within normal limits. The osseous structures are intact. No radio metallic forei gn body identified. Heart size normal. No overt failure. IMPRESSION: No acute process. No radiopaque foreign body.
--- NOTE | 2020-06-18 13:29 | XR ---
EXAMINATION TYPE: XR soft tissue neck DATE OF EXAM: 06/18/2020 COMPARISON: NONE HISTORY: Foreign body TECHNIQUE: 2 view submitted FINDINGS: Epiglottis normal. Prevertebral soft tissue structures within normal limits. Hypertrophic a nd degenerative change of the spine. Osseous structures intact. No radio metallic foreign body identi fied. IMPRESSION: No radio metallic foreign body.
--- NOTE | 2020-06-18 13:31 | XR ---
EXAMINATION TYPE: XR KUB DATE OF EXAM: 06/18/2020 COMPARISON: NONE HISTORY: Foreign body TECHNIQUE: One view abdominal series FINDINGS: The osseous structures are intact. The bowel gas pattern is nonspecific. There is a metallic density along the right paraspinal line which could represent a foreign body within the bowel.. IMPRESSION: 1. Metallic density along the right paraspinal line adjacent to L4 likely within the bowel may repres ent the suspected metallic foreign body. Report called to ER physician.
[2020-06-18 14:29] LABS: Amphetamine Screen,Urine Not Detected (NotDetected); Barbiturate Screen,Urine Not Detected (NotDetected); Benzodiazepines Screen,Urine Not Detected (NotDetected); Cocaine Screen,Urine Not Detected (NotDetected); Methadone Screen, Urine Not Detected (NotDetected); Opiate Screen,Urine Not Detected (NotDetected); Oxycodone Screen, Urine Not Detected (NotDetected); Phencyclidine Screen,Urine Not Detected (NotDetected); Tricyclic Antidepressant,Urine Detected (NotDetected); Urn Cannabinoid Scrn Not Detected (NotDetected)
[2020-06-18] MEDS ORDERED: SODIUM CHLORIDE 0.9% 1,000 ML IV ONE (16:10)
[2020-06-18] MEDS ORDERED: NALOXONE 0.4 MG/ML 1 ML VIAL IV PRN (17:38)
[2020-06-18] MEDS ORDERED: LORazepam 2 MG/ML INJ IV STA (17:57)
[2020-06-18 18:04] LABS: HCT 48.5 % (39.0-53.0); HGB 16.9 gm/dL (13.0-17.5); MCH 32.9 pg (25.0-35.0); MCHC 34.8 g/dL (31.0-37.0); MCV 94.5 fL (80.0-100.0); Mean Platelet Volume 8.1; Platelet Count 130 k/uL (150-450); RBC 5.13 m/uL (4.30-5.90); RDW 12.9 % (11.5-15.5); WBC 8.1 k/uL (3.8-10.6)
[2020-06-18 18:12] LABS: ALT 108 U/L (4-49); AST 96 U/L (17-59); African American GFR (CKD) >90 (>60 ml/min/1.73 sqM); Albumin 4.4 g/dL (3.5-5.0); Albumin/Globulin Ratio 1.3; Alkaline Phosphatase 66 U/L (38-126); Anion Gap 6 mmol/L; Blood Urea Nitrogen 11 mg/dL (9-20); Calcium 9.2 mg/dL (8.4-10.2); Carbon Dioxide 25 mmol/L (22-30); Chloride 107 mmol/L (98-107); Globulin 3.4 g/dL; Glucose 100 mg/dL (74-99); Non-African American GFR(CKD) >90 (>60 ml/min/1.73 sqM); Potassium 4.6 mmol/L (3.5-5.1); Sodium 138 mmol/L (137-145); Total Bilirubin 0.9 mg/dL (0.2-1.3); Total Protein 7.8 g/dL (6.3-8.2)
--- NOTE | 2020-06-18 18:17 | CT ---
EXAMINATION TYPE: CT abdomen pelvis wo con DATE OF EXAM: 06/18/2020 COMPARISON: None HISTORY: FOREIGN BODY, PT SWALLOWED RAZOR BLADE CT DLP: 455.6 mGycm Automated exposure control for dose reduction was used. Images were obtained from the diaphragm to the floor the pelvis with no contrast. FINDINGS: Lung bases are clear. There is no pleural effusion. Heart appears normal. There is no pericardial eff usion. Liver spleen stomach pancreas gallbladder appear normal. Bile ducts are not dilated. There is no adrenal mass. Kidneys have normal size. There is no hydronephrosis. There is no retroperi toneal adenopathy. Ureters are not dilated. Bladder distends smoothly. There is no inguinal hernia. T here is no free fluid in the pelvis. There is no evidence of a pelvic mass. The appendix appears norm al. There is no mesenteric edema. There is no ascites or free air. There is no evidence of a bowel obstru ction. There is small 10 mm linear metallic density within the transverse colon. This is consistent with a r keisha blade. Lumbar vertebra have normal spacing and alignment. Posterior elements are intact. Bony pelvis is inta ct. Hip joints appear normal. IMPRESSION: Small razor blade foreign body in the mid transverse colon. No other abnormality identified.
[2020-06-18 18:50] LABS: Band Neutrophils % 1 %; Eosinophils # (M) 0.32 k/uL (0-0.7); Lymphocytes # (M) 3.73 k/uL (1.0-4.8); Monocytes # (M) 0.65 k/uL (0-1.0); Neutrophils % (M) 41 %; Nucleated Red Blood Cells 0 /100 WBC (0-0); Total Cells Counted 100
[2020-06-18 18:51] LABS: Reactive Lymphocytes Present
[2020-06-18] MEDS: KETOROLAC 15 MG/ML 1 ML VIAL IVP PRN (21:02)
[2020-06-18] MEDS ORDERED: diphenhydrAMINE 50 MG/ML 1 ML VIAL IVP PRN (22:58)
[2020-06-18] MEDS ORDERED: TAMSULOSIN 0.4 MG CAP.ER.24H PO STA (22:59)
--- NOTE | 2020-06-18 23:07 | P.GSHP ---
History of Present Illness H&P Date: 06/18/20 Patient presents following swallowing broken razor while in long term. Reports throat/neck pain. Reports left upper abdominal pain. He ate a sandwich this afternoon. PLAN: 1. Recommend CT of the abdomen/pelvis for microperforation and migration of foreign body 2. CBC and CMP baseline 3. EGD for throat pain 4. Surgical exploration described for sharp foreign body Past Medical History Past Medical History: Asthma, Seizure Disorder Additional Past Medical History / Comment(s): back pain, History of Any Multi-Drug Resistant Organisms: None Reported Past Surgical History: Adenoidectomy, Tonsillectomy Past Psychological History: ADD/ADHD, Anxiety, Bipolar, Depression, PTSD Additional Psychological History / Comment(s): Manic depression Smoking Status: Current some day smoker Past Alcohol Use History: None Reported Past Drug Use History: Marijuana Medications and Allergies Home Medications Medication Instructions Recorded Confirmed Type QUEtiapine FUMARATE [SEROquel] 400 mg PO HS 06/05/19 06/18/20 History Divalproex Sodium [Depakote] 500 mg PO QAM 05/05/20 06/18/20 History Divalproex Sodium [Depakote] 1,000 mg PO HS 06/18/20 06/18/20 History buPROPion XL [Wellbutrin Xl] 300 mg PO DAILY 06/18/20 06/18/20 History Allergies Allergy/AdvReac Type Severity Reaction Status Date / Time Penicillins Allergy FAMILY Verified 06/18/20 13:21 HISTORY Surgical - Exam Vital Signs Temp Pulse Resp BP Pulse Ox 97.9 F 71 18 107/71 99 06/18/20 11:54 06/18/20 11:54 06/18/20 11:54 06/18/20 11:54 06/18/20 11:54 Results - Labs 06/18/20 18:01 06/18/20 18:01 Abnormal Lab Results - Last 24 Hours (Table) 06/18/20 06/18/20 06/18/20 Range/Units 13:45 18:01 18:01 Plt Count 130 L (150-450) k/uL Glucose 100 H (74-99) mg/dL AST 96 H (17-59) U/L ALT 108 H (4-49) U/L U Tricyclic Antidepress Detected H (NotDetected) Diabetes panel 06/18/20 Range/Units 18:01 Sodium 138 (137-145) mmol/L Potassium 4.6 (3.5-5.1) mmol/L Chloride 107 (98-107) mmol/L Carbon Dioxide 25 (22-30) mmol/L BUN 11 (9-20) mg/dL Creatinine 0.87 (0.66-1.25) mg/dL Glucose 100 H (74-99) mg/dL Calcium 9.2 (8.4-10.2) mg/dL AST 96 H (17-59) U/L ALT 108 H (4-49) U/L Alkaline Phosphatase 66 (38-126) U/L Total Protein 7.8 (6.3-8.2) g/dL Albumin 4.4 (3.5-5.0) g/dL Calcium panel 06/18/20 Range/Units 18:01 Calcium 9.2 (8.4-10.2) mg/dL Albumin 4.4 (3.5-5.0) g/dL Pituitary panel 06/18/20 Range/Units 18:01 Sodium 138 (137-145) mmol/L Potassium 4.6 (3.5-5.1) mmol/L Chloride 107 (98-107) mmol/L Carbon Dioxide 25 (22-30) mmol/L BUN 11 (9-20) mg/dL Creatinine 0.87 (0.66-1.25) mg/dL Glucose 100 H (74-99) mg/dL Calcium 9.2 (8.4-10.2) mg/dL Adrenal panel 06/18/20 Range/Units 18:01 Sodium 138 (137-145) mmol/L Potassium 4.6 (3.5-5.1) mmol/L Chloride 107 (98-107) mmol/L Carbon Dioxide 25 (22-30) mmol/L BUN 11 (9-20) mg/dL Creatinine 0.87 (0.66-1.25) mg/dL Glucose 100 H (74-99) mg/dL Calcium 9.2 (8.4-10.2) mg/dL Total Bilirubin 0.9 (0.2-1.3) mg/dL AST 96 H (17-59) U/L ALT 108 H (4-49) U/L Alkaline Phosphatase 66 (38-126) U/L Total Protein 7.8 (6.3-8.2) g/dL Albumin 4.4 (3.5-5.0) g/dL
[2020-06-18] MEDS: LORazepam 2 MG/ML INJ IV PRN (23:10)
[2020-06-18] MEDS: DIVALPROEX 500 MG TABLET.DR PO SCH ×2 (23:11→23:24)
[2020-06-18] MEDS: QUEtiapine 200 MG TAB PO SCH (23:23)
[2020-06-18] MEDS: buPROPion XL 300 MG TAB.ER.24H PO SCH (23:23)
[2020-06-19] MEDS: PIPERACILLIN-TAZOBACTAM 3.375 GM in SODIUM CHLORIDE 0.9% 100 ML IVPB SCH ×3 (00:28→17:17)
[2020-06-19] MEDS: LORazepam 2 MG/ML INJ IV PRN ×2 (09:11→19:33)
[2020-06-19 09:23] LABS: HCT 44.8 % (39.0-53.0); HGB 15.3 gm/dL (13.0-17.5); MCH 32.7 pg (25.0-35.0); MCHC 34.1 g/dL (31.0-37.0); MCV 95.9 fL (80.0-100.0); Mean Platelet Volume 7.8; RBC 4.68 m/uL (4.30-5.90); RDW 12.7 % (11.5-15.5); WBC 5.9 k/uL (3.8-10.6)
[2020-06-19 09:36] LABS: Platelet Count 89 k/uL (150-450)
[2020-06-19 09:37] LABS: ALT 91 U/L (4-49); AST 91 U/L (17-59); African American GFR (CKD) >90 (>60 ml/min/1.73 sqM); Albumin 3.5 g/dL (3.5-5.0); Albumin/Globulin Ratio 1.2; Alkaline Phosphatase 60 U/L (38-126); Anion Gap 5 mmol/L; Blood Urea Nitrogen 12 mg/dL (9-20); Calcium 8.7 mg/dL (8.4-10.2); Carbon Dioxide 29 mmol/L (22-30); Chloride 105 mmol/L (98-107); Glucose 77 mg/dL (74-99); Non-African American GFR(CKD) >90 (>60 ml/min/1.73 sqM); Potassium 4.2 mmol/L (3.5-5.1); Sodium 139 mmol/L (137-145); Total Bilirubin 1.1 mg/dL (0.2-1.3); Total Protein 6.5 g/dL (6.3-8.2)
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
[2020-06-19] MEDS: buPROPion XL 300 MG TAB.ER.24H PO SCH (14:00)
[2020-06-19] MEDS: ONDANSETRON 4 MG/2 ML VIAL IVP PRN (14:20)
[2020-06-19] MEDS ORDERED: PROPOFOL 10 MG/ML 20 ML VIAL IV ONE (16:17)
[2020-06-19] MEDS ORDERED: LIDOCAINE 1% INJ 10MG/ML (20 ML MDV) ONE (16:17)
[2020-06-19] MEDS ORDERED: GLYCOPYRROLATE 0.2 MG/ML 2 ML VIAL ONE (16:17)
[2020-06-19] MEDS ORDERED: IV FLUID CONTINUATION 900 ML IV ONE (16:17)
[2020-06-19] MEDS: DIVALPROEX 500 MG TABLET.DR PO SCH ×4 (17:06→19:42)
[2020-06-19] MEDS: KETOROLAC 15 MG/ML 1 ML VIAL IVP PRN (19:33)
[2020-06-19] MEDS: QUEtiapine 200 MG TAB PO SCH (21:14)
--- NOTE | 2020-06-19 23:35 | P.CONS ---
History of Present Illness - Reason for Consult Consult date: 06/19/20 Medical management Requesting physician: Verónica Riley - Chief Complaint Swolled blade - History of Present Illness Consultation: This is a 30-year-old patient is currently incarcerated. Patient does not have a family doctor. police investigator present with him in the room. Patient has a history of asthma, depression, seizure disorder. He's been in the chair for abo ut a month. It was felt that the [facility] with Sayed the psychiatrist. His last seizure was about few weeks ago. Patient was depressed and he swallowed Havel blade. Patient has some discomfort in the throat. Computed tomography scan initially the blade down to be present in the transverse colon. No trouble swallowing. Patient smokes occasionally. Last marijuana was couple of months ago. Currently does not have a job. Had been living with his parents. Review of systems: GEN.: None EYES: None HEENT: Some discomfort in her throat NECK: None RESPIRATORY: None CARDIOVASCULAR: None GASTROINTESTINAL: None GENITOURINARY: None MUSCULOSKELETAL: None LYMPHATICS: None HEMATOLOGICAL: None PSYCHIATRY: Depressed NEUROLOGICAL: None Past medical history to include: Asthma, seizure disorder, bipolar depression Social history: Normal lives with his parents. Currently in care home. Smokes occasionally. Marijuana occasionally. No alcohol. Not employed currently. 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 EYES: Pupils equal. Conjunctiva normal. HEENT: External appearance of nose and ears normal, oral cavity grossly normal. NECK: JVD not raised; masses not palpable. HEART: First and second heart sounds are normal; no edema. LUNGS: Respiratory rate normal; clear to auscultation. ABDOMEN: Soft, nontender, liver spleen not palpable, no masses palpable. PSYCH: [Alert and oriented x3; mood and affect feeling low l. NEUROLOGICAL: Cranial nerves grossly intact; no facial asymmetry, power and sensation grossly intact. LYMPHATICS: No lymph nodes palpable in the axilla and neck INVESTIGATIONS, reviewed in the clinical context: White count 5.9 hemoglobin 15.3 potassium 4.2 creatinine 0.87 AST 91 ALT 91 Urine drug screen positive for tricyclic antidepressant COVID 19 P/Cr-not detected Computed tomography scan of the abdomen and pelvis without contrast-small razor blade foreign-body in the mid transverse colon Chest x-ray film personally reviewed by me-lung siddiqui clear Assessment: -Patient swallowed of foreign body, that is half a metal blade which is currently largest in the transverse colon. Hopefully, with patient's stool.- This will come out -Intermittent asthma -Seizure disorder -Marijuana recreational use Plan: Patient to continue taking seizure medications. Advised taking use of recreational drugs and smoking. Hopefully patient be able to pass the piece of metal razor blade spontaneously. Follow-up with PCP upon discharge Thank you Dr. Guzman Past Medical History Past Medical History: Asthma, Seizure Disorder Additional Past Medical History / Comment(s): back pain, History of Any Multi-Drug Resistant Organisms: None Reported Past Surgical History: Adenoidectomy, Tonsillectomy Past Psychological History: ADD/ADHD, Anxiety, Bipolar, Depression, PTSD Additional Psychological History / Comment(s): Manic depression Smoking Status: Current some day smoker Past Alcohol Use History: None Reported Past Drug Use History: Marijuana Medications and Allergies Home Medications Medication Instructions Recorded Confirmed Type QUEtiapine FUMARATE [SEROquel] 400 mg PO HS 06/05/19 06/18/20 History Divalproex Sodium [Depakote] 500 mg PO QAM 05/05/20 06/18/20 History Divalproex Sodium [Depakote] 1,000 mg PO HS 06/18/20 06/18/20 History buPROPion XL [Wellbutrin Xl] 300 mg PO DAILY 06/18/20 06/18/20 History Allergies Allergy/AdvReac Type Severity Reaction Status Date / Time Penicillins Allergy FAMILY Verified 06/18/20 13:21 HISTORY Physical Exam Vitals: Vital Signs Temp Pulse Pulse Resp BP BP Pulse Ox 06/19/20 08:00 60 18 06/19/20 05:00 97.5 F L 60 18 104/64 98 06/18/20 23:00 98.9 F 81 18 127/84 98 06/18/20 22:57 98.2 F 67 18 134/67 98 06/18/20 21:18 98.9 F 81 18 127/84 98 06/18/20 18:47 98.4 F 86 18 124/91 98 06/18/20 11:54 97.9 F 71 18 107/71 99 Intake and Output 06/18/20 06/19/20 06/19/20 22:59 06:59 14:59 Intake Total 375 Output Total 425 Balance -50 Intake: Intake, IV Titration 375 Amount Sodium Chloride 0.9% 1, 375 000 ml @ 75 mls/hr IV . [id number] Rx#:[id number] Output: Urine 425 Post Void Residual 0 Other: # Voids 1 Weight 77.111 kg Results CBC & Chem 7: 06/19/20 08:56 06/19/20 08:56 Labs: Abnormal Lab Results - Last 24 Hours (Table) 06/18/20 06/18/20 06/18/20 Range/Units 13:45 18:01 18:01 Plt Count 130 L (150-450) k/uL Glucose 100 H (74-99) mg/dL AST 96 H (17-59) U/L ALT 108 H (4-49) U/L U Tricyclic Antidepress Detected H (NotDetected) 06/19/20 06/19/20 Range/Units 08:56 08:56 Plt Count 89 L (150-450) k/uL Glucose (74-99) mg/dL AST 91 H (17-59) U/L ALT 91 H (4-49) U/L U Tricyclic Antidepress (NotDetected)
[2020-06-20] MEDS: PIPERACILLIN-TAZOBACTAM 3.375 GM in SODIUM CHLORIDE 0.9% 100 ML IVPB SCH ×3 (00:11→17:06)
--- NOTE | 2020-06-20 07:53 | P.PCN ---
Date of Procedure: 06/19/20 Description of Procedure: PREOPERATIVE DIAGNOSIS: Swallow razor blade, foreign body Odynophagia POSTOPERATIVE DIAGNOSIS: Gastritis Duodenitis Esophagitis OPERATION: Esophagogastroduodenoscopy SURGEON: Verónica Riley MD ANESTHESIA: MAC. INDICATIONS: The patient is a 30-year-old male who presents after swallowing half of the razor blade. Reports painful swallow along the posterior oropharynx throat including abdominal pain. Benefits and risks of the procedure were described. Informed consent was obtained. DESCRIPTION: The patient was brought into the endoscopy suite and laid in the left lateral decubitus position. An Olympus gastroscope was passed along the posterior oropharynx down to the distal esophagus where the squamocolumnar junction was encountered at 40 cm from the incisors. Careful inspection along the posterior oropharynx demonstrated no ulcerations or injury of the vocal cords or posterior oropharynx. Very superficial mucosal ulceration along the upper third of the esophagus was identified without full-thickness tear. The mid to distal esophagus was unremarkable. The GE junction was unremarkable for acute injury. The stomach and duodenum up to the third portion was unremarkable for acute laceration or injury. Additional findings are listed below. Retroflexion of the scope confirmed Hill grade 2 lower esophageal valve. The squamocolumnar junction demonstrated LA grade A erosive esophagitis. The stomach was desufflated. The patient tolerated the procedure well. FINDINGS: Squamocolumnar junction 40 cm from the incisors. Diaphragmatic hiatus at 40 cm. Hill grade 2 lower esophageal valve. LA grade A erosive esophagitis. Active duodenitis. Chronic gastritis Very superficial mucosal ulceration along the upper third of the esophagus was identified without full-thickness tear. Mild duodenitis along first the second portion Mild gastritis along proximal stomach RECOMMENDATIONS: Upper endoscopy as needed.
[2020-06-20] MEDS ORDERED: ACETAMINOPHEN TAB 325 MG TAB PO PRN (07:56)
--- NOTE | 2020-06-20 08:27 | XR ---
EXAMINATION TYPE: XR abdomen 2V DATE OF EXAM: 06/20/2020 COMPARISON: 06/18/2020 HISTORY: Ingestion of tracer blade TECHNIQUE: Single supine KUB image of the abdomen is obtained FINDINGS: Small bowel demonstrates no evidence for dilatation or air fluid levels. Gas and fecal material is seen in non-distended colon. No convincing evidence for pneumoperitoneum. No unusual calcifications. The lung bases are clear. Linear radiopaque densities noted overlying the region of the splenic flexure and is felt to reflect the ingested razor blade. Moderate fecal stasis is noted. IMPRESSION: 1. Linear radiopaque density noted overlying the region of the splenic flexure and is felt to reflec t the ingested razor blade. Moderate fecal stasis is noted.
[2020-06-20] MEDS: KETOROLAC 15 MG/ML 1 ML VIAL IVP PRN (08:41)
[2020-06-20] MEDS: buPROPion XL 150 MG TAB.ER.24H PO SCH (08:41)
[2020-06-20] MEDS: DIVALPROEX 500 MG TABLET.DR PO SCH ×2 (08:41→20:42)
[2020-06-20] MEDS: LORazepam 2 MG/ML INJ IV PRN (08:42)
[2020-06-20] MEDS ORDERED: MAGNESIUM HYDROXIDE 2,400 MG/10 ML CUP PO STA (15:53)
[2020-06-20] MEDS ORDERED: LACTULOSE 20 GM/30 ML CUP PO STA (15:53)
--- NOTE | 2020-06-20 15:53 | P.PN ---
Subjective Progress Note Date: 06/20/20 CHIEF COMPLAINT: Ingestion of razor blade HISTORY OF PRESENT ILLNESS: The patient is a 30-year-old male admitted after swallowing a razor blade with abdominal pain. EGD yesterday showed no full thickness injury of the posterior oropharynx, esophagus, stomach, or proximal duodenum. Per aquatics lifeguard at bedside, "he ate everything!" He has tolerated sandwiches x 4, ate his breakfast, and lunch. No bowel movements. He complains of lower abdominal soreness over the bladder, not moderate. ROS: No reports of nausea and vomiting. No fevers or chills. No new chest pain. PHYSICAL EXAM: VITAL SIGNS: Reviewed CONSTITUTIONAL: Well developed and in no acute distress. EYES: Conjuctivae without sclera icterus. Extraocular movements grossly intact. HEAD, EARS, NOSE, THROAT: Moist buccal mucosa. Head is atraumatic, normocephalic. Hears conversational speech. No nasal drainage. NECK: Supple. RESPIRATORY: Non-labored respirations and equal bilateral excursions. CARDIOVASCULAR: Palpable 2+ radial pulses. ABDOMEN: Mild distension. No perionitis. MUSCULOSKELETAL: No gross deformity of the lower extremities noted. No clubbing. No cyanosis. SKIN: Good skin turgor. Well perfused. NEUROLOGIC: Cranial nerves II through XII grossly intact. No focal or lateralizing signs. PSYCH: Flat affect. Alert and oriented to person, place and time. CLINICAL LABS: Platelets down 130 to 89. WBC normal. STUDIES: Abdominal xray ordered and reviewed by me without free air. Moderate stool along colon. Foreign body at left upper quadrant. ASSESSMENT: 1. Razor blade ingestion. 2. Depressive disorder 3. Constipation PLAN: 1. Start cathartics for moderate constipation 2. Continue regular diet for bulk of stool to pass foreign body. Objective - Vital Signs Vital signs: Vital Signs Temp 97.3 F L 06/20/20 12:02 Pulse 83 06/20/20 12:02 Resp 18 06/20/20 12:02 BP 127/77 06/20/20 12:02 Pulse Ox 92 L 06/20/20 12:02 Intake & Output 06/19/20 06/20/20 06/20/20 18:59 06:59 18:59 Intake Total 100 Output Total 425 Balance -325 Intake: IV 100 Output: Urine 425 Other: # Voids 1 - Labs CBC & Chem 7: 11/20/20 08:56 06/19/20 08:56 Assessment and Plan (1) Imprisonment and other incarceration Current Visit: Yes Status: Acute Code(s): Z65.1 - IMPRISONMENT AND OTHER INCARCERATION SNOMED Code(s): 43935659 (2) Swallowed foreign body Current Visit: Yes Status: Acute Code(s): T18.9XXA - FOREIGN BODY OF ALIMENTARY TRACT, PART UNSP, INIT ENCNTR SNOMED Code(s): 17146382 (3) Depression Current Visit: Yes Status: Acute Code(s): F32.9 - MAJOR DEPRESSIVE DISORDER, SINGLE EPISODE, UNSPECIFIED SNOMED Code(s): 59887464 (4) Foreign body in intestine Current Visit: Yes Status: Acute Code(s): T18.3XXA - FOREIGN BODY IN SMALL INTESTINE, INITIAL ENCOUNTER SNOMED Code(s): 26770552 (5) Suicidal ideation Current Visit: Yes Status: Acute Code(s): R45.851 - SUICIDAL IDEATIONS SNOMED Code(s): 3627305
[2020-06-20] MEDS: HYDROmorphone 1 MG/ML 1 ML SYRINGE IVP PRN ×2 (17:03→20:42)
[2020-06-20] MEDS: QUEtiapine 200 MG TAB PO SCH (20:36)
[2020-06-20] MEDS: ACETAMINOPHEN TAB 325 MG TAB PO SCH (20:37)
--- NOTE | 2020-06-20 22:21 | P.PN ---
Progress Note - Text Progress Note Date: 06/20/20 - Chief Complaint Swolled blade - History of Present Illness Consultation: This is a 30-year-old patient is currently incarcerated. Patient does not have a family doctor. [place] police present with him in the room. Patient has a history of asthma, depression, seizure disorder. He's been in the chair for about a month. It was felt that the [facility] with Sayed the psychiatrist. His last seizure was about few weeks ago. Patient was depressed and he swallowed Havel blade. Patient has some discomfort in the throat. Computed tomography scan initially the blade down to be present in the transverse colon. No trouble swallowing. Patient smokes occasionally. Last marijuana was couple of months ago. Currently does not have a job. Had been living with his parents. Today-sitting up. Very slight throat discomfort. Oral intake present. Had EGD yesterday. Some esophagitis and gastritis. Review of systems: Was done for constitutional, cardiovascular, GI, pulmonary. relevant finding as above Active Medications Acetaminophen (Acetaminophen Tab 325 Mg Tab) 650 mg PO Q6HR [facility] Last Admin: 06/20/20 20:37 Dose: 650 mg Documented by: Bupropion HCl (Bupropion Xl 150 Mg Tab.Er.24h) 150 mg PO DAILY [facility] Last Admin: 06/20/20 08:41 Dose: 150 mg Documented by: Diphenhydramine HCl (Diphenhydramine 50 Mg/Ml 1 Ml Vial) 25 mg IVP Q6HR PRN PRN Reason: Allergy Symptoms Divalproex Sodium (Divalproex 500 Mg Tablet.) 500 mg PO QAM [facility] Last Admin: 06/20/20 08:41 Dose: 500 mg Documented by: Divalproex Sodium (Divalproex 500 Mg Tablet.) 1,000 mg PO HS [facility] Last Admin: 06/20/20 20:42 Dose: 1,000 mg Documented by: Docusate Sodium (Docusate 100 Mg Cap) 100 mg PO BID [facility] Hydromorphone HCl (Hydromorphone 1 Mg/Ml 1 Ml Syringe) 1 mg IVP Q3HR PRN PRN Reason: Moderate to Severe Pain Last Admin: 06/20/20 20:42 Dose: 1 mg Documented by: Piperacillin Sod/Tazobactam (Sod 3.375 gm/ Sodium Chloride) 100 mls @ 25 mls/hr IVPB Q8HR [facility] Last Admin: 06/20/20 17:06 Dose: 25 mls/hr Documented by: Lorazepam (Lorazepam 2 Mg/Ml Inj) 1 mg IV Q4HR PRN PRN Reason: Anxiety Last Admin: 06/20/20 08:42 Dose: 1 mg Documented by: Naloxone HCl (Naloxone 0.4 Mg/Ml 1 Ml Vial) 0.2 mg IV Q2M PRN PRN Reason: Opioid Reversal Ondansetron HCl (Ondansetron 4 Mg/2 Ml Vial) 4 mg IVP Q6HR PRN PRN Reason: Nausea And Vomiting Last Admin: 06/19/20 14:20 Dose: 4 mg Documented by: Quetiapine Fumarate (Quetiapine 200 Mg Tab) 400 mg PO HS [facility] Last Admin: 06/20/20 20:36 Dose: 400 mg Documented by: Physical examination: GENERAL: Sitting up in bed, comfortable EYES: Pupils equal. Conjunctiva normal. NECK: JVD not raised; masses not palpable. HEART: First and second heart sounds are normal; no edema. LUNGS: Respiratory rate normal; clear to auscultation. ABDOMEN: Soft, nontender, liver spleen not palpable, no masses palpable. PSYCH: [Alert and oriented x3; mood and affect feeling low INVESTIGATIONS, reviewed in the clinical context: Abdominal y-eng-Mufzrepa 21-foreign body in the left splenic flexure area White count 5.9 hemoglobin 15.3 potassium 4.2 creatinine 0.87 AST 91 ALT 91 Urine drug screen positive for tricyclic antidepressant COVID 19 P/Cr-not detected Computed tomography scan of the abdomen and pelvis without contrast-small razor blade foreign-body in the mid transverse colon Chest x-ray film personally reviewed by me-lung siddiqui clear Assessment: -Patient swallowed of foreign body, that is half a metal blade which is currently in the left splenic flexure area. -Intermittent asthma -Seizure disorder -Marijuana recreational use -Esophagitis gastritis duodenitis mild-per EGD -Depressive disorder -Nonspecific hepatitis. Plan: Patient encouraged to increase high fiber diet. Walk around in the room. Discussed with the patient. Expected the foreign-body be to be passed out with stool. Check acute hepatitis screen. Thank you Dr. Guzman
[2020-06-21] MEDS: PIPERACILLIN-TAZOBACTAM 3.375 GM in SODIUM CHLORIDE 0.9% 100 ML IVPB SCH ×3 (00:51→15:48)
[2020-06-21] MEDS: ACETAMINOPHEN TAB 325 MG TAB PO SCH ×4 (00:53→17:26)
[2020-06-21 07:26] LABS: HCT 47.8 % (39.0-53.0); HGB 16.3 gm/dL (13.0-17.5); MCH 32.6 pg (25.0-35.0); MCHC 34.1 g/dL (31.0-37.0); MCV 95.5 fL (80.0-100.0); Platelet Count 109 k/uL (150-450); RBC 5.01 m/uL (4.30-5.90); RDW 12.7 % (11.5-15.5); WBC 11.2 k/uL (3.8-10.6)
[2020-06-21] MEDS: DIVALPROEX 500 MG TABLET.DR PO SCH ×2 (10:25→21:33)
[2020-06-21] MEDS: DOCUSATE 100 MG CAP PO SCH ×2 (10:25→21:08)
[2020-06-21] MEDS: buPROPion XL 150 MG TAB.ER.24H PO SCH (10:25)
--- NOTE | 2020-06-21 11:03 | XR ---
EXAMINATION TYPE: XR abdomen 2V DATE OF EXAM: 06/21/2020 COMPARISON: 06/20/2020 HISTORY: Possible foreign body TECHNIQUE: One view abdominal series FINDINGS: The osseous structures are intact. The bowel gas pattern is nonspecific. Multiple air-fluid levels a re seen and there does appear to be a radio metallic foreign body which would be compatible with a ra zor blade overlying the region of the left iliac bone possibly within the descending colon. Linear ch anges involving the left lung base most typical of atelectasis. IMPRESSION: 1. Radial opaque density overlying the left iliac bone suggestive of a foreign body such as a razor b lade which appears to be located overlying the region of the descending colon.
[2020-06-21] MEDS: ONDANSETRON 4 MG/2 ML VIAL IVP PRN (11:08)
[2020-06-21] MEDS: HYDROmorphone 1 MG/ML 1 ML SYRINGE IVP PRN ×2 (11:16→22:27)
[2020-06-21 14:13] LABS: Hepatitis A Antibody IgM Non-Reactive (Non-Reactive); Hepatitis B Core IgM Non-Reactive (Non-Reactive); Hepatitis B Surface Antigen Non-Reactive (Non-Reactive); Hepatitis C IgG Antibody Reactive (Non-Reactive)
[2020-06-21] MEDS ORDERED: MAGNESIUM HYDROXIDE 2,400 MG/10 ML CUP PO STA (16:37)
[2020-06-21] MEDS ORDERED: NA PHOS,M-B/NA PHOS,DI-BA 133 ML ENEMA RECTAL STA (16:37)
--- NOTE | 2020-06-21 16:37 | P.PN ---
Subjective Progress Note Date: 06/21/20 CHIEF COMPLAINT: Ingestion of razor blade HISTORY OF PRESENT ILLNESS: The patient is a 30-year-old male admitted after swallowing a razor blade with abdominal pain. Since admission, in the last day he has tolerated regular diet. In fact, he reports moderate hunger. He has not had a large bowel movement. He had small bowel movements. No new abdominal pain. ROS: No reports of nausea and vomiting. No fevers or chills. No new chest pain. PHYSICAL EXAM: VITAL SIGNS: Reviewed CONSTITUTIONAL: Well developed and in no acute distress. EYES: Conjuctivae without sclera icterus. Extraocular movements grossly intact. HEAD, EARS, NOSE, THROAT: Moist buccal mucosa. Head is atraumatic, normocep halic. Hears conversational speech. No nasal drainage. NECK: Supple. RESPIRATORY: Non-labored respirations and equal bilateral excursions. CARDIOVASCULAR: Palpable 2+ radial pulses. ABDOMEN: No perionitis. MUSCULOSKELETAL: No gross deformity of the lower extremities noted. No clubbing. No cyanosis. SKIN: Good skin turgor. Well perfused. NEUROLOGIC: Cranial nerves II through XII grossly intact. No focal or lateralizing signs. PSYCH: Flat affect. Alert and oriented to person, place and time. CLINICAL LABS: WBC elevated to over 11,000. LFTs improving. STUDIES: Abdominal xray reviewed with migration of foreign body from transverse colon to descending colon ASSESSMENT: 1. Razor blade ingestion. 2. Depressive disorder 3. Constipation PLAN: 1. Despite laxatives, patient continues to have constipation. We'll do fleets enema. 2. Monitor white blood cell count in the interim. 3. Follow-up abdominal x-rays for migration of foreign body. Objective - Vital Signs Vital signs: Vital Signs Temp 98.5 F 06/21/20 11:57 Pulse 76 06/21/20 14:39 Resp 18 06/21/20 14:39 BP 112/73 06/21/20 11:57 Pulse Ox 94 L 06/21/20 11:57 Intake & Output 06/20/20 06/21/20 06/21/20 18:59 06:59 18:59 Intake Total 100 Output Total 425 Balance 100 -425 Intake: Intake, IV Titration 100 Amount Piperacillin-Tazobactam 3 100 .375 gm In Sodium Chloride 0.9% 100 ml @ 25 mls/hr IVPB Q8HR [facility] Rx# :[id number] Output: Urine 425 Other: # Voids 2 - Labs CBC & Chem 7: 06/21/20 06:37 06/19/20 08:56 Labs: Abnormal Lab Results - Last 24 Hours (Table) 06/21/20 06/21/20 Range/Units 06:37 06:37 WBC 11.2 H (3.8-10.6) k/uL Plt Count 109 L (150-450) k/uL Hep C IgG Ab Reactive A (Non-Reactive) Assessment and Plan (1) Imprisonment and other incarceration Current Visit: Yes Status: Acute Code(s): Z65.1 - IMPRISONMENT AND OTHER INCARCERATION SNOMED Code(s): 69917158 (2) Swallowed foreign body Current Visit: Yes Status: Acute Code(s): T18.9XXA - FOREIGN BODY OF ALIMENTARY TRACT, PART UNSP, INIT ENCNTR SNOMED Code(s): 38436089 (3) Depression Current Visit: Yes Status: Acute Code(s): F32.9 - MAJOR DEPRESSIVE DISORDER, SINGLE EPISODE, UNSPECIFIED SNOMED Code(s): 57446937 (4) Foreign body in intestine Current Visit: Yes Status: Acute Code(s): T18.3XXA - FOREIGN BODY IN SMALL INTESTINE, INITIAL ENCOUNTER SNOMED Code(s): 43624226 (5) Suicidal ideation Current Visit: Yes Status: Acute Code(s): R45.851 - SUICIDAL IDEATIONS SNOMED Code(s): 8760312
[2020-06-21] MEDS: QUEtiapine 200 MG TAB PO SCH (21:08)
[2020-06-21] MEDS: LORazepam 2 MG/ML INJ IV PRN (21:31)
--- NOTE | 2020-06-21 22:01 | P.PN ---
Progress Note - Text Progress Note Date: 06/21/20 - Chief Complaint Swolled blade Consultation: This is a 30-year-old patient is currently incarcerated. Patient does not have a family doctor. police specialist present with him in the room. Patient has a history of asthma, depression, seizure disorder. He's been in the chair for about a month. It was felt that the [facility] with Sayed the psychiatrist. His last seizure was about few weeks ago. Patient was depressed and he swallowed Havel blade. Patient has some discomfort in the throat. Computed tomography scan initially the blade down to be present in the transverse colon. No trouble swallowing. Patient smokes occasionally. Last marijuana was couple of months ago. Currently does not have a job. Had been living with his parents. EGD - Some esophagitis and gastritis. Today-no bowel movement. Has been in bed. campus police officer by bedside. No abdominal pain. Review of systems: Was done for constitutional, cardiovascular, GI, pulmonary. relevant finding as above Active Medications Acetaminophen (Acetaminophen Tab 325 Mg Tab) 650 mg PO Q6HR [facility] Last Admin: 06/21/20 17:26 Dose: 650 mg Documented by: Bupropion HCl (Bupropion Xl 150 Mg Tab.Er.24h) 150 mg PO DAILY [facility] Last Admin: 06/21/20 10:25 Dose: 150 mg Documented by: Diphenhydramine HCl (Diphenhydramine 50 Mg/Ml 1 Ml Vial) 25 mg IVP Q6HR PRN PRN Reason: Allergy Symptoms Divalproex Sodium (Divalproex 500 Mg Tablet.) 500 mg PO QAM [facility] Last Admin: 06/21/20 10:25 Dose: 500 mg Documented by: Divalproex Sodium (Divalproex 500 Mg Tablet.) 1,000 mg PO HS [facility] Last Admin: 06/21/20 21:33 Dose: 1,000 mg Documented by: Docusate Sodium (Docusate 100 Mg Cap) 100 mg PO BID [facility] Last Admin: 06/21/20 21:08 Dose: 100 mg Documented by: Hydromorphone HCl (Hydromorphone 1 Mg/Ml 1 Ml Syringe) 1 mg IVP Q3HR PRN PRN Reason: Moderate to Severe Pain Last Admin: 06/21/20 11:16 Dose: 1 mg Documented by: Piperacillin Sod/Tazobactam (Sod 3.375 gm/ Sodium Chloride) 100 mls @ 25 mls/hr IVPB Q8HR [facility] Last Admin: 06/21/20 15:48 Dose: 25 mls/hr Documented by: Lorazepam (Lorazepam 2 Mg/Ml Inj) 1 mg IV Q4HR PRN PRN Reason: Anxiety Last Admin: 06/21/20 21:31 Dose: 1 mg Documented by: Naloxone HCl (Naloxone 0.4 Mg/Ml 1 Ml Vial) 0.2 mg IV Q2M PRN PRN Reason: Opioid Reversal Ondansetron HCl (Ondansetron 4 Mg/2 Ml Vial) 4 mg IVP Q6HR PRN PRN Reason: Nausea And Vomiting Last Admin: 06/21/20 11:08 Dose: 4 mg Documented by: Quetiapine Fumarate (Quetiapine 200 Mg Tab) 400 mg PO HS [facility] Last Admin: 06/21/20 21:08 Dose: 400 mg Documented by: Physical examination: VITALS: 97.5, 86, 16, 90/58, 98% room air GENERAL: Laying in bed, comfortable EYES: Pupils equal. Conjunctiva normal. NECK: JVD not raised; masses not palpable. HEART: First and second heart sounds are normal; no edema. LUNGS: Respiratory rate normal; clear to auscultation. ABDOMEN: Soft, nontender, liver spleen not palpable, no masses palpable. PSYCH: Alert and oriented x3; mood and affect feeling low INVESTIGATIONS, reviewed in the clinical context: White count 11.2 hemoglobin 16.3 Hepatitis C IgG antibody-reactive Abdominal g-prz-Xiouvgvq 22-foreign body over the left iliac bone. Abdominal m-apq-Vnxynbic 21-foreign body in the left splenic flexure area White count 5.9 hemoglobin 15.3 potassium 4.2 creatinine 0.87 AST 91 ALT 91 Urine drug screen positive for tricyclic antidepressant COVID 19 P/Cr-not detected Computed tomography scan of the abdomen and pelvis without contrast-small razor blade foreign-body in the mid transverse colon Chest x-ray film personally reviewed by me-lung siddiqui clear Assessment: -Patient swallowed of foreign body, that is half a metal blade which is currently in the left descending colon.. -Intermittent asthma -Seizure disorder -Marijuana recreational use -Esophagitis gastritis duodenitis mild-per EGD -Depressive disorder -Hepatitis C IgG antibody-reactive. We'll send off hepatitis C virus RNA- quantitative Plan: Patient be given lactulose today. Encouraged to ambulate in the room. Was sent off hepatitis C virus RNA-quantitative Thank you Dr. Guzman
[2020-06-22] MEDS: PIPERACILLIN-TAZOBACTAM 3.375 GM in SODIUM CHLORIDE 0.9% 100 ML IVPB SCH ×3 (01:01→17:27)
[2020-06-22] MEDS: ACETAMINOPHEN TAB 325 MG TAB PO SCH ×4 (01:02→17:34)
[2020-06-22] MEDS: metroNIDAZOLE-NS PMX 500 MG in SALINE 1 100ML.BAG IVPB SCH ×3 (08:10→17:34)
[2020-06-22] MEDS: DOCUSATE 100 MG CAP PO SCH ×2 (08:10→20:23)
[2020-06-22] MEDS: DIVALPROEX 500 MG TABLET.DR PO SCH ×2 (08:10→21:49)
[2020-06-22] MEDS: buPROPion XL 150 MG TAB.ER.24H PO SCH (08:10)
[2020-06-22] MEDS: LORazepam 2 MG/ML INJ IV PRN ×3 (08:20→20:24)
[2020-06-22 08:38] LABS: HCT 46.2 % (39.0-53.0); HGB 15.5 gm/dL (13.0-17.5); MCH 32.6 pg (25.0-35.0); MCHC 33.6 g/dL (31.0-37.0); MCV 97.1 fL (80.0-100.0); Mean Platelet Volume 8.6; RBC 4.75 m/uL (4.30-5.90); RDW 13.4 % (11.5-15.5); WBC 9.4 k/uL (3.8-10.6)
[2020-06-22] MEDS ORDERED: MAGNESIUM HYDROXIDE 2,400 MG/10 ML CUP PO STA (09:55)
--- NOTE | 2020-06-22 09:55 | P.PN ---
Subjective Progress Note Date: 06/22/20 CHIEF COMPLAINT: Ingestion of razor blade HISTORY OF PRESENT ILLNESS: The patient is a 30-year-old male admitted after swallowing a razor blade with abdominal pain. He had a large bowel movement yesterday. Per discussion with his nurse, the razor blade was manually removed from the anus. He is resting comfortably. No further bowel movements since razor extraction. ROS: No reports of nausea and vomiting. No fevers or chills. No new chest pain. PHYSICAL EXAM: VITAL SIGNS: Reviewed CONSTITUTIONAL: Well developed and in no acute distress. EYES: Conjuctivae without sclera icterus. Extraocular movements grossly intact. HEAD, EARS, NOSE, THROAT: Moist buccal mucosa. Head is atraumatic, nor mocephalic. Hears conversational speech. No nasal drainage. NECK: Supple. RESPIRATORY: Non-labored respirations and equal bilateral excursions. CARDIOVASCULAR: Palpable 2+ radial pulses. ABDOMEN: No perionitis. Non-tender. Non-distended. MUSCULOSKELETAL: No gross deformity of the lower extremities noted. No clubbing. No cyanosis. SKIN: Good skin turgor. Well perfused. NEUROLOGIC: Cranial nerves II through XII grossly intact. No focal or lateralizing signs. PSYCH: Flat affect. Alert and oriented to person, place and time. CLINICAL LABS: WBC normal. Hep C reactive. STUDIES: Abdominal xray independently reviewed with no foreign body or free air. ASSESSMENT: 1. Razor blade ingestion. 2. Depressive disorder 3. Constipation PLAN: 1. Transfer to [facility] once surgical stable. Pending another bowel movement without fresh blood. 2. Added Flagyl for IV antibiotics Objective - Vital Signs Vital signs: Vital Signs Temp 97.4 F L 06/22/20 07:48 Pulse 71 06/22/20 07:48 Resp 16 06/22/20 07:48 BP 118/80 06/22/20 07:48 Pulse Ox 97 06/22/20 07:48 Intake & Output 06/21/20 06/22/20 06/22/20 18:59 06:59 18:59 Output Total 425 Balance -425 Output: Urine 425 Other: # Voids 2 - Labs CBC & Chem 7: 06/22/20 07:23 06/19/20 08:56 Labs: Abnormal Lab Results - Last 24 Hours (Table) 11/22/20 Range/Units 06:37 Hep C IgG Ab Reactive A (Non-Reactive) Assessment and Plan (1) Imprisonment and other incarceration Current Visit: Yes Status: Acute Code(s): Z65.1 - IMPRISONMENT AND OTHER INCARCERATION SNOMED Code(s): 74143133 (2) Swallowed foreign body Current Visit: Yes Status: Acute Code(s): T18.9XXA - FOREIGN BODY OF ALIMENTARY TRACT, PART UNSP, INIT ENCNTR SNOMED Code(s): 05287094 (3) Depression Current Visit: Yes Status: Acute Code(s): F32.9 - MAJOR DEPRESSIVE DISORDER, SINGLE EPISODE, UNSPECIFIED SNOMED Code(s): 61624824 (4) Foreign body in intestine Current Visit: Yes Status: Acute Code(s): T18.3XXA - FOREIGN BODY IN SMALL INTESTINE, INITIAL ENCOUNTER SNOMED Code(s): 61546133 (5) Suicidal ideation Current Visit: Yes Status: Acute Code(s): R45.851 - SUICIDAL IDEATIONS SNOMED Code(s): 4927701
[2020-06-22 10:01] LABS: Platelet Count 94 k/uL (150-450)
[2020-06-22 10:06] LABS: Eosinophils # (M) 0.38 k/uL (0-0.7); Lymphocytes # (M) 3.95 k/uL (1.0-4.8); Monocytes # (M) 0.28 k/uL (0-1.0); Neutrophils # (M) 4.79 k/uL (1.3-7.7); Neutrophils % (M) 51 %; Nucleated Red Blood Cells 0 /100 WBC (0-0); Total Cells Counted 100
--- NOTE | 2020-06-22 12:03 | XR ---
EXAMINATION TYPE: XR abdomen 2V DATE OF EXAM: 06/22/2020 8:00 AM CLINICAL HISTORY: Foreign body, swallowed razor blade TECHNIQUE: Supine and upright images of the abdomen and pelvis were obtained COMPARISON: Abdominal radiograph 06/21/2020 and 06/20/2020. CT abdomen pelvis 06/18/2020. FINDINGS: No radiopaque foreign body definitively seen on current exam. Nonspecific bowel gas pattern . No pneumoperitoneum. Osseous structures are intact. Bibasilar linear atelectasis. IMPRESSION: No radiopaque foreign body definitively seen on current exam.
[2020-06-22] MEDS: HYDROmorphone 1 MG/ML 1 ML SYRINGE IVP PRN (20:23)
[2020-06-22] MEDS: QUEtiapine 200 MG TAB PO SCH (20:23)
--- NOTE | 2020-06-23 00:21 | P.PN ---
Progress Note - Text Progress Note Date: 06/22/20 - Chief Complaint Swolled blade Consultation: This is a 30-year-old patient is currently incarcerated. Patient does not have a family doctor. airfield services officer present with him in the room. Patient has a history of asthma, depression, seizure disorder. He's been in the chair for about a month. It was felt that the [facility] with Sayed the psychiatrist. His last seizure was about few weeks ago. Patient was depressed and he swallowed Havel blade. Patient has some discomfort in the throat. Computed tomography scan initially the blade down to be present in the transverse colon. No trouble swallowing. Patient smokes occasionally. Last marijuana was couple of months ago. Currently does not have a job. Had been living with his parents. EGD - Some esophagitis and gastritis. Today-patient had a large bowel movement yesterday. It is a blade was mildly removed from the anus. Patient is having slight lower abdominal pain. No bleeding was noted.. Review of systems: Was done for constitutional, cardiovascular, GI, pulmonary. relevant finding as above Active Medications Acetaminophen (Acetaminophen Tab 325 Mg Tab) 650 mg PO Q6HR [facility] Last Admin: 06/22/20 17:34 Dose: 650 mg Documented by: Bupropion HCl (Bupropion Xl 150 Mg Tab.Er.24h) 150 mg PO DAILY [facility] Last Admin: 06/22/20 08:10 Dose: 150 mg Documented by: Diphenhydramine HCl (Diphenhydramine 50 Mg/Ml 1 Ml Vial) 25 mg IVP Q6HR PRN PRN Reason: Allergy Symptoms Divalproex Sodium (Divalproex 500 Mg Tablet.) 500 mg PO QAM [facility] Last Admin: 06/22/20 08:10 Dose: 500 mg Documented by: Divalproex Sodium (Divalproex 500 Mg Tablet.) 1,000 mg PO HS [facility] Last Admin: 06/22/20 21:49 Dose: 1,000 mg Documented by: Docusate Sodium (Docusate 100 Mg Cap) 100 mg PO BID [facility] Last Admin: 06/22/20 20:23 Dose: 100 mg Documented by: Hydromorphone HCl (Hydromorphone 1 Mg/Ml 1 Ml Syringe) 1 mg IVP Q3HR PRN PRN Reason: Moderate to Severe Pain Last Admin: 06/22/20 20:23 Dose: 1 mg Documented by: Piperacillin Sod/Tazobactam (Sod 3.375 gm/ Sodium Chloride) 100 mls @ 25 mls/hr IVPB Q8HR [facility] Last Admin: 06/22/20 17:27 Dose: 25 mls/hr Documented by: Metronidazole 500 mg/ IV (Solution) 100 mls @ 100 mls/hr IVPB Q6HR [facility] Last Admin: 06/22/20 17:34 Dose: 100 mls/hr Documented by: Lorazepam (Lorazepam 2 Mg/Ml Inj) 1 mg IV Q4HR PRN PRN Reason: Anxiety Last Admin: 06/22/20 20:24 Dose: 1 mg Documented by: Naloxone HCl (Naloxone 0.4 Mg/Ml 1 Ml Vial) 0.2 mg IV Q2M PRN PRN Reason: Opioid Reversal Ondansetron HCl (Ondansetron 4 Mg/2 Ml Vial) 4 mg IVP Q6HR PRN PRN Reason: Nausea And Vomiting Last Admin: 06/21/20 11:08 Dose: 4 mg Documented by: Quetiapine Fumarate (Quetiapine 200 Mg Tab) 400 mg PO HS [facility] Last Admin: 06/22/20 20:23 Dose: 400 mg Documented by: Physical examination: VITALS: 98.8, 87, 18, 132/82, 97% room air GENERAL: Laying in bed, comfortable EYES: Pupils equal. Conjunctiva normal. NECK: JVD not raised; masses not palpable. HEART: First and second heart sounds are normal; no edema. LUNGS: Respiratory rate normal; clear to auscultation. ABDOMEN: Soft, nontender, liver spleen not palpable, no masses palpable. PSYCH: Alert and oriented x3; mood and affect feeling low INVESTIGATIONS, reviewed in the clinical context: white count 9.4 hemoglobin 15.5 platelets 94 Hepatitis C IgG antibody-reactive Abdominal a-pgh-Avmemcfj 22-foreign body over the left iliac bone. Abdominal n-ltr-Ecgxbajo 21-foreign body in the left splenic flexure area White count 5.9 hemoglobin 15.3 potassium 4.2 creatinine 0.87 AST 91 ALT 91 Urine drug screen positive for tricyclic antidepressant COVID 19 P/Cr-not detected Computed tomography scan of the abdomen and pelvis without contrast-small razor blade foreign-body in the mid transverse colon Chest x-ray film personally reviewed by me-lung siddiqui clear Assessment: -Patient swallowed of foreign body, that is half a metal blade which is currently in the left descending colon.. -Intermittent asthma -Seizure disorder -Marijuana recreational use -Esophagitis gastritis duodenitis mild-per EGD -Depressive disorder -Hepatitis C IgG antibody-reactive. hepatitis C virus [id number] -Thrombocytopenia-consult hematology. Possible ITP. Plan: continue current medication treatment plan. Thank you Dr. Guzman
[2020-06-23] MEDS: metroNIDAZOLE-NS PMX 500 MG in SALINE 1 100ML.BAG IVPB SCH ×3 (00:45→12:44)
[2020-06-23] MEDS: PIPERACILLIN-TAZOBACTAM 3.375 GM in SODIUM CHLORIDE 0.9% 100 ML IVPB SCH ×2 (00:46→09:32)
[2020-06-23] MEDS: ACETAMINOPHEN TAB 325 MG TAB PO SCH ×3 (01:04→11:33)
[2020-06-23] MEDS: LORazepam 2 MG/ML INJ IV PRN ×2 (01:05→05:23)
[2020-06-23] MEDS: HYDROmorphone 1 MG/ML 1 ML SYRINGE IVP PRN ×4 (01:05→13:57)
[2020-06-23 06:39] LABS: HCT 43.6 % (39.0-53.0); HGB 14.5 gm/dL (13.0-17.5); MCH 32.1 pg (25.0-35.0); MCHC 33.3 g/dL (31.0-37.0); MCV 96.3 fL (80.0-100.0); Mean Platelet Volume 8.3; Platelet Count 117 k/uL (150-450); RBC 4.53 m/uL (4.30-5.90); RDW 13.3 % (11.5-15.5); WBC 8.2 k/uL (3.8-10.6)
[2020-06-23] MEDS: IOPAMIDOL CONTRAST (ORAL USE) VIAL PO PRN ×2 (09:32→10:24)
[2020-06-23] MEDS: buPROPion XL 150 MG TAB.ER.24H PO SCH (09:33)
[2020-06-23] MEDS: DIVALPROEX 500 MG TABLET.DR PO SCH (09:33)
[2020-06-23] MEDS: DOCUSATE 100 MG CAP PO SCH (10:21)
[2020-06-23] MEDS ORDERED: TAMSULOSIN 0.4 MG CAP.ER.24H PO STA (10:41)
[2020-06-23 12:02] VITALS: BP 124/73; PULSE 79; RESP 17; TEMP 97.6
--- NOTE | 2020-06-23 12:13 | P.CONS ---
History of Present Illness - Reason for Consult Consult date: 06/23/20 thrombocytopenia Requesting physician: Gilbert Flores - Chief Complaint foreign body removal - History of Present Illness Pt is a pleasantly confused 30 yo male pt we have been asked to see re: thrombocytopenia. Pt denies any history of low blood counts, states 40lb weight fluctuation but nothing progressive, he occasional epistaxis and he thinks he has had fevers. No other bleeding, rashes or unusual bruising. No Hx of transfusion, unaware of any family history or blood problems. Moderate ETOH, denies IVDA, he is newly diagnosed with Hep C, not certain how he contracted Hep C. Review of Systems 10 point ROS is negative except as stated in HPI Past Medical History Past Medical History: Asthma, Seizure Disorder Additional Past Medical History / Comment(s): back pain, History of Any Multi-Drug Resistant Organisms: None Reported Past Surgical History: Adenoidectomy, Tonsillectomy Additional Past Anesthesia/Blood Transfusion Reaction / Comm: No transfusion history Past Psychological History: ADD/ADHD, Anxiety, Bipolar, Depression, PTSD Additional Psychological History / Comment(s): Manic depression Smoking Status: Current some day smoker Past Alcohol Use History: Occasional Past Drug Use History: Marijuana Medications and Allergies Home Medications Medication Instructions Recorded Confirmed Type QUEtiapine FUMARATE [SEROquel] 400 mg PO HS 06/05/19 06/18/20 History Divalproex Sodium [Depakote] 500 mg PO QAM 05/05/20 06/18/20 History Divalproex Sodium [Depakote] 1,000 mg PO HS 06/18/20 06/18/20 History buPROPion XL [Wellbutrin Xl] 300 mg PO DAILY 06/18/20 06/18/20 History Cyclobenzaprine [Flexeril] 10 mg PO Q8H PRN 06/20/20 06/20/20 History Allergies Allergy/AdvReac Type Severity Reaction Status Date / Time Penicillins Allergy FAMILY Verified 06/18/20 13:21 HISTORY Physical Exam Vitals: Vital Signs Temp Pulse Resp BP Pulse Ox 06/23/20 05:00 97.4 F L 68 18 128/80 95 06/22/20 21:00 97.8 F 85 18 119/72 96 06/22/20 13:00 98.8 F 87 18 132/82 97 Intake and Output 06/22/20 06/23/20 06/23/20 22:59 06:59 14:59 Other: Voiding Method Toilet Toilet # Voids 2 # Bowel Movements 1 - Constitutional General appearance: average body habitus, cooperative, no acute distress - EENT Eyes: anicteric sclerae, EOMI ENT: hearing grossly normal, normal oropharynx - Neck Neck: no lymphadenopathy - Respiratory Respiratory: bilateral: CTA - Cardiovascular Rhythm: regular Heart sounds: normal: S1, S2 Abnormal Heart Sounds: no systolic murmur, no diastolic murmur, no rub, no S3 Gallop, no S4 Gallop, no click, no other leg Peripheral Edema: bilateral: None - Gastrointestinal General gastrointestinal: no absent bowel sounds, no decreased bowel sounds, no distended, no hepatomegaly, no hyperactive bowel sounds, normal bowel sounds, no organomegaly, no rigid, no scaphoid, soft, no splenomegaly, no tenderness, no umbilical hernia, no ventral hernia - Integumentary Integumentary: normal - Neurologic Neurologic: CNII-XII intact - Musculoskeletal Musculoskeletal: strength equal bilaterally - Psychiatric Psychiatric: A&O x's 3, appropriate affect Results CBC & Chem 7: 06/23/20 05:43 06/19/20 08:56 Labs: Abnormal Lab Results - Last 24 Hours (Table) 06/23/20 Range/Units 05:43 Plt Count 117 L (150-450) k/uL Comments: Operative notes reviewed CT scan - abdomen: report reviewed CT scan - pelvis: report reviewed Assessment and Plan (1) Thrombocytopenia Narrative/Plan: This is of new onset when chart reviewed back to 2017. Plt are low but in a safe range. Cont to improve slowly. No acute intervention. Monitor for any s/s bleeding. Chronic liver disease, splenic sequestration and reduced thrombopoetin are likely the underlying cause for pt thrombocytopenia. Thrombocytopenia work up ordered to rule out any other pathology Current Visit: Yes Status: Acute Priority: High Code(s): D69.6 - THROM BOCYTOPENIA, UNSPECIFIED SNOMED Code(s): 481660381 (2) Hepatitis C Narrative/Plan: Rec f/u with Buttonhole Machine Operator for treatment of the same. Current Visit: Yes Status: Acute Priority: High Code(s): B19.20 - UNSPECIFIED VIRAL HEPATITIS C WITHOUT HEPATIC COMA SNOMED Code(s): 16963025 Plan: Dr attests: I have performed H&P, developed impression and plan of care. Discu ssed with dictator. Agree with documentation. Documented as a scribe
--- NOTE | 2020-06-23 12:20 | CT ---
EXAMINATION TYPE: CT abdomen pelvis w con DATE OF EXAM: 06/23/2020 COMPARISON: 06/18/2020 HISTORY: Acute abdominal pain with razor blade ingestion. CT DLP: 545 mGycm CONTRAST: CT scan of the abdomen and pelvis is performed with Oral Contrast and with IV Contrast, patient injec jamshid with 100 mL of Isovue M300. FINDINGS: LUNG BASES-: No visible nodule. No infiltrate. LIVER/GB: No calcified gallstones. No space occupying hepatic lesion. Biliary tree is of normal ca liber. PANCREAS: No inflammation. No distinct mass. SPLEEN: No splenic enlargement. No lesion seen. ADRENALS: No nodule. No thickening. KIDNEYS/BLADDER: No hydronephrosis. No nephrolithiasis. No distinct renal mass. Urinary bladder g rossly unremarkable. BOWEL: Previously noted razor blade foreign body within the transverse colon is no longer visualized. There is a new linear radiopaque density within the mid jejunum seen best on coronal image 24 of 87 which measures 1.4 cm in length. This may reflect an additional ingested foreign body. Correlate clin ically. Severe fecal stasis is identified. GENITAL ORGANS: No gross abnormality. LYMPH NODES: No greater than 1cm abdominal or pelvic lymph nodes are appreciated. AORTA: No significant abnormality. OSSEOUS STRUCTURES: No significant abnormality is seen. OTHER: No significant additional abnormality is seen. IMPRESSION: 1. Previously noted razor blade foreign body within the transverse colon is no longer visualized. 2.There is a new linear radiopaque density within the mid jejunum seen best on coronal image 24 of 87 which measures 1.4 cm in length. This may reflect an additional ingested foreign body. Correlate cli nically.
[2020-06-23 12:24] LABS: Band Neutrophils % 1 %; Eosinophils # (M) 0.33 k/uL (0-0.7); Lymphocytes # (M) 2.87 k/uL (1.0-4.8); Monocytes # (M) 0.74 k/uL (0-1.0); Neutrophils % (M) 51 %; Nucleated Red Blood Cells 0 /100 WBC (0-0); Total Cells Counted 100
[2020-06-23] MEDS ORDERED: MAGNESIUM HYDROXIDE 2,400 MG/10 ML CUP PO ONE (13:43)
--- NOTE | 2020-06-23 14:08 | P.DS ---
Providers Date of admission: 06/18/20 16:10 Expected date of discharge: 06/23/20 Attending physician: Verónica Riley Consults: 06/18/20 16:10 Consult Physician Urgent Consulting Provider: Eber Fernández Consult Reason/Comments: Depression, suicide attempts Do you want consulting provider notified?: Yes 06/18/20 22:54 Consult Physician Routine Consulting Provider: Gilbert Flores Consult Reason/Comments: Medical management Do you want consulting provider notified?: Yes 06/23/20 00:21 Consult Physician Routine Consulting Provider: Fabricio Stewart Consult Reason/Comments: thrombocytopenia Do you want consulting provider notified?: Yes Primary care physician: Lissette Gastelum Hospital Course: Discharge diagnosis 1. Razor blade ingestion. 2. Depressive disorder 3. Constipation Hospital course The patient is a 30-year-old male admitted after swallowing a razor blade with abdominal pain. He had a large bowel movement. Per discussion with his nurse, the razor blade was manually removed from the anus. Patient had another bowel movement last night and no evidence of blood in the stool. Patient has had EGD during this admission and it showed gastritis, duodenitis and esophagitis. Patient has had repeated abdominal x-rays. Last abdominal x-ray on 06/22/2020 shows no radio opaque foreign body seen. Patient has been continually under 24- hour supervision with patrol guard. Both the patrol guard and patient reports he has not ingested any further foreign bodies. Patient does have evidence of severe constipation and is being treated with Colace and milk of magnesia. Patient is stable for discharge to the psychiatric unit. He is tolerating diet. He is afebrile. His pain is controlled. He is stable for discharge. Physician Dental Appliance Mechanic note has been reviewed by physician. Signing provider agrees with the documented findings, assessment, and plan of care. Patient Condition at Discharge: Stable Plan - Discharge Summary Discharge Rx Participant: No New Discharge Prescriptions: New Docusate [Colace] 100 mg PO BID #60 cap Magnesium Hydroxide [Milk of Magnesia Concentrate] 2,400 mg PO DAILY ml Continue QUEtiapine FUMARATE [SEROquel] 400 mg PO HS Divalproex Sodium [Depakote] 500 mg PO QAM buPROPion XL [Wellbutrin XL] 300 mg PO DAILY Divalproex Sodium [Depakote] 1,000 mg PO HS Discontinued Cyclobenzaprine [Flexeril] 10 mg PO Q8H PRN PRN Reason: Pain Discharge Medication List QUEtiapine FUMARATE [SEROquel] 400 mg PO HS 06/05/19 [History] Divalproex Sodium [Depakote] 500 mg PO QAM 05/05/20 [History] Divalproex Sodium [Depakote] 1,000 mg PO HS 06/18/20 [History] buPROPion XL [Wellbutrin XL] 300 mg PO DAILY 06/18/20 [History] Docusate [Colace] 100 mg PO BID #60 cap 06/23/20 [Rx] Magnesium Hydroxide [Milk of Magnesia Concentrate] 2,400 mg PO DAILY ml 06/23/20 [Rx] Follow up Appointment(s)/Referral(s): Nirav Mclaughlin MD [Primary Care Provider] - 1-2 days Magaly Fernandez MD [STAFF PHYSICIAN] - 1 Week Activity/Diet/Wound Care/Special Instructions: Okay to transfer patient to psych unit Diet regular Activity as tolerated Discharge Disposition: TRANSFER TO PSYCH HOSP/UNIT
--- NOTE | 2020-06-23 15:36 | XR ---
EXAMINATION TYPE: XR abdomen 2V DATE OF EXAM: 06/23/2020 7:59 AM CLINICAL HISTORY: Foreign body TECHNIQUE: Supine and upright images of the abdomen and pelvis were obtained COMPARISON: Abdominal radiograph 06/23/2020, 06/22/2020, 06/21/2020, 06/20/2020. CT abdomen pelvis . FINDINGS: There is a linear 1.5 cm radiolucency over the right midabdomen at the level of L4 which is less likely to represent bowel contents versus radiolucent foreign body. There is no evidence of rad iopaque foreign body. Nonspecific bowel gas pattern. No pneumoperitoneum. Osseous structures are inta ct. There is subsegmental linear atelectasis of the lung bases. IMPRESSION: 1. Right mid abdomen 1.5 cm linear radiolucency may represent radiolucent foreign body. 2. No radiopaque foreign body. 3. No pneumoperitoneum. 4. Nonspecific bowel gas pattern.
[2020-06-23] MEDS ORDERED: metroNIDAZOLE 500 MG TAB PO SCH (18:00)
[2020-06-23 19:02] LABS: Ferritin 268.8 ng/mL (22.0-322.0)
[2020-06-23 19:51] LABS: % Iron Saturation 22.43 (15.00-50.00); Iron 83 ug/dL (65-175); Rheumatoid Factor, Qnt <4 IU/mL (0-13); Total Iron Binding Capacity 370 ug/dL (228-460)
[2020-06-23 20:51] LABS: HIV 2 AB Non-Reactive (Non-Reactive); HIV AB P24 Non-Reactive (Non-Reactive); HIV P24 AG Non-Reactive (Non-Reactive)
--- NOTE | 2020-06-23 21:08 | P.PN ---
Progress Note - Text Progress Note Date: 06/23/20 - Chief Complaint Swallowed blade Consultation: This is a 30-year-old patient is currently incarcerated. Patient does not have a family doctor. superintendent police present with him in the room. Patient has a history of asthma, depression, seizure disorder. He's been in the chair for about a month. It was felt that the [facility] with Sayed the psychiatrist. His last seizure was about few weeks ago. Patient was depressed and he swallowed Havel blade. Patient has some discomfort in the throat. Computed tomography scan initially the blade down to be present in the transverse colon. No trouble swallowing. Patient smokes occasionally. Last marijuana was couple of months ago. Currently does not have a job. Had been living with his parents. EGD - Some esophagitis and gastritis.patient finally had a large bowel movement- blade was manually removed from the anus Today-. Comfortable. No abdominal pain. Starting a diet. Did be going down to 3 [address]. psychiatry unit today.. Review of systems: Was done for constitutional, cardiovascular, GI, pulmonary. relevant finding as above Current medications reviewed in today's electronic records Physical examination: VITALS: 97.6, 79, 17, 120/73, 97% room air GENERAL: Laying in bed, comfortable EYES: Pupils equal. Conjunctiva normal. NECK: JVD not raised; masses not palpable. HEART: First and second heart sounds are normal; no edema. LUNGS: Respiratory rate normal; clear to auscultation. ABDOMEN: Soft, nontender, liver spleen not palpable, no masses palpable. PSYCH: Alert and oriented x3; mood and affect feeling low INVESTIGATIONS, reviewed in the clinical context: White count 8.2 hemoglobin 14.5 platelets 117 I and 83 TIBC 370 Hepatitis C IgG antibody-reactive Abdominal r-bkq-Slypthim 22-foreign body over the left iliac bone. Abdominal i-jcr-Detcvqlz 21-foreign body in the left splenic flexure area White count 5.9 hemoglobin 15.3 potassium 4.2 creatinine 0.87 AST 91 ALT 91 Urine drug screen positive for tricyclic antidepressant COVID 19 P/Cr-not detected Computed tomography scan of the abdomen and pelvis without contrast-small razor blade foreign-body in the mid transverse colon Chest x-ray film personally reviewed by me-lung siddiqui clear Assessment: -Patient swallowed of foreign body, that is half a metal blade which is currently in the left descending colon.. -Intermittent asthma -Seizure disorder -Marijuana recreational use -Esophagitis gastritis duodenitis mild-per EGD -Depressive disorder -Hepatitis C IgG antibody-reactive. hepatitis C virus [id number] -Thrombocytopenia-consult hematology. Possible ITP.-Being followed by hematology Plan: continue current medication treatment plan. Patient to follow-up with rn cardiovascular icu regarding his hepatitis C positive status. Thank you Dr. Guzman
[2020-06-24] MEDS ORDERED: MAGNESIUM HYDROXIDE 2,400 MG/10 ML CUP PO SCH (09:00)
[2020-06-24 12:14] LABS: Protein, Total 6.8 g/dL (6.2-8.2)
== END 2020-06-23 17:30 | DRG 394 ==
LOC: EC 11:39 → 6NMEDSUR 16:10 → 5NMEDONC 06-21 17:09
PROVIDERS: ADMIT Surgery Plastic and Reconstructive Surgery; ATTEND Surgery Plastic and Reconstructive Surgery
PROC: 0DJ08ZZ Inspection of Upper Intestinal Tract, Via Natural or Artificial Opening Endoscopic (ICD-10-PCS; principal; 2020-06-19 07:30)
DX: T18.4XXA Foreign body in colon, initial encounter (principal); K22.10 Ulcer of esophagus without bleeding; R45.851 Suicidal ideations; G40.909 Epilepsy, unspecified, not intractable, without status epilepticus; F90.9 Attention-deficit hyperactivity disorder, unspecified type; F43.10 Post-traumatic stress disorder, unspecified; D69.6 Thrombocytopenia, unspecified; Z20.828 Contact with and (suspected) exposure to other viral communicable diseases; F17.200 Nicotine dependence, unspecified, uncomplicated; K59.00 Constipation, unspecified; J45.20 Mild intermittent asthma, uncomplicated; F31.9 Bipolar disorder, unspecified; R04.0 Epistaxis; B19.20 Unspecified viral hepatitis C without hepatic coma; K29.80 Duodenitis without bleeding; K29.50 Unspecified chronic gastritis without bleeding; Z90.89 Acquired absence of other organs; Z79.899 Other long term (current) drug therapy; Z88.0 Allergy status to penicillin
CPT/HCPCS: 43235; 70360; 71045; 74018; 74019; 74176; 74177; 80053; 80074; 80306; 82075; 82607; 82728; 82747; 83540; 83550; 84165; 85025; 85027; 86038; 86334; 86431; 87390; 87522; 87635; 96361; 96374; 99284; 99285

== ENCOUNTER 2020-06-23 17:02 | Inpatient (IN) | payer MEDICAID, OTHER ==
[2020-06-23] MEDS ORDERED: MAGNESIUM HYDROXIDE 2,400 MG/10 ML CUP PO PRN (17:11)
[2020-06-23] MEDS ORDERED: MAG HYDROX/AL HYDROX/SIMETH 30 ML CUP PO PRN (17:11)
[2020-06-23] MEDS ORDERED: LORazepam 2 MG/ML INJ IM PRN (17:13)
[2020-06-23] MEDS: LORazepam 1 MG TAB PO PRN (18:36)
[2020-06-23] MEDS: ACETAMINOPHEN TAB 325 MG TAB PO PRN (18:39)
[2020-06-23] MEDS: NICOTINE 21MG/24HR PATCH TRANSDERM SCH (18:40)
[2020-06-23] MEDS: QUEtiapine 200 MG TAB PO SCH (20:09)
[2020-06-23] MEDS: DIVALPROEX 500 MG TABLET.DR PO SCH (20:09)
[2020-06-23] MEDS: DOCUSATE 100 MG CAP PO SCH (20:09)
[2020-06-23] MEDS: HALOPERIDOL LACTATE 5 MG/ML 1 ML VIAL IM PRN (20:49)
[2020-06-24 07:53] LABS: HCT 43.6 % (39.0-53.0); HGB 14.9 gm/dL (13.0-17.5); MCH 32.6 pg (25.0-35.0); MCHC 34.3 g/dL (31.0-37.0); Mean Platelet Volume 7.9; Platelet Count 148 k/uL (150-450); RBC 4.59 m/uL (4.30-5.90); RDW 12.6 % (11.5-15.5); WBC 6.8 k/uL (3.8-10.6)
[2020-06-24 08:03] LABS: ALT 60 U/L (4-49); AST 62 U/L (17-59); African American GFR (CKD) >90 (>60 ml/min/1.73 sqM); Albumin 3.5 g/dL (3.5-5.0); Alkaline Phosphatase 55 U/L (38-126); Anion Gap 6 mmol/L; Blood Urea Nitrogen 14 mg/dL (9-20); Carbon Dioxide 30 mmol/L (22-30); Chloride 104 mmol/L (98-107); Cholesterol 107 mg/dL (<200); Glucose 88 mg/dL (74-99); HDL Cholesterol 27 mg/dL (40-60); LDL Cholesterol,Calculated 65 mg/dL (0-99); Non-African American GFR(CKD) >90 (>60 ml/min/1.73 sqM); Potassium 4.6 mmol/L (3.5-5.1); Sodium 140 mmol/L (137-145); Total Bilirubin 0.6 mg/dL (0.2-1.3); Total Protein 6.7 g/dL (6.3-8.2); Triglycerides 73 mg/dL (<150)
[2020-06-24] MEDS ORDERED: buPROPion XL 300 MG TAB.ER.24H PO SCH (09:00)
[2020-06-24] MEDS: DIVALPROEX 500 MG TABLET.DR PO SCH ×2 (10:14→20:17)
[2020-06-24] MEDS: LORazepam 1 MG TAB PO PRN (10:14)
[2020-06-24] MEDS: DOCUSATE 100 MG CAP PO SCH ×2 (10:16→20:17)
[2020-06-24] MEDS: NICOTINE 21MG/24HR PATCH TRANSDERM SCH (10:24)
[2020-06-24] MEDS ORDERED: LORazepam 2 MG/ML INJ IM PRN (10:44)
--- NOTE | 2020-06-24 10:46 | P.HP ---
Psychiatric H&P - . H&P Date: 06/24/20 History & Physical: Allergies Allergy/AdvReac Type Severity Reaction Status Date / Time Penicillins Allergy FAMILY Verified 06/18/20 13:21 HISTORY Vital Signs Temp 97.3 F L 06/24/20 07:17 Pulse 66 06/24/20 07:17 Resp 16 06/24/20 07:17 BP 112/64 06/24/20 07:17 Pulse Ox 93 L 06/24/20 07:17 Intake & Output 06/23/20 06/24/20 06/24/20 18:59 06:59 18:59 Weight 77.5 kg Laboratory Last Values WBC 6.8 k/uL (3.8-10.6) 06/24/20 07:33 RBC 4.59 m/uL (4.30-5.90) 06/24/20 07:33 Hgb 14.9 gm/dL (13.0-17.5) 06/24/20 07:33 Hct 43.6 % (39.0-53.0) 06/24/20 07:33 MCV 95.0 fL (80.0-100.0) 06/24/20 07:33 MCH 32.6 pg (25.0-35.0) 06/24/20 07:33 MCHC 34.3 g/dL (31.0-37.0) 06/24/20 07:33 RDW 12.6 % (11.5-15.5) 06/24/20 07:33 Plt Count 148 k/uL (150-450) L 06/24/20 07:33 MPV 7.9 06/24/20 07:33 Sodium 140 mmol/L (137-145) 06/24/20 07:33 Potassium 4.6 mmol/L (3.5-5.1) 06/24/20 07:33 Chloride 104 mmol/L (98-107) 06/24/20 07:33 Carbon Dioxide 30 mmol/L (22-30) 06/24/20 07:33 Anion Gap 6 mmol/L 06/24/20 07:33 BUN 14 mg/dL (9-20) 06/24/20 07:33 Creatinine 0.82 mg/dL (0.66-1.25) 06/24/20 07:33 Est GFR (CKD-EPI)AfAm >90 (>60 ml/min/1.73 sqM) 06/24/20 07:33 Est GFR (CKD-EPI)NonAf >90 (>60 ml/min/1.73 sqM) 06/24/20 07:33 Glucose 88 mg/dL (74-99) 06/24/20 07:33 Calcium 9.0 mg/dL (8.4-10.2) 06/24/20 07:33 Total Bilirubin 0.6 mg/dL (0.2-1.3) 06/24/20 07:33 AST 62 U/L (17-59) H 06/24/20 07:33 ALT 60 U/L (4-49) H 06/24/20 07:33 Alkaline Phosphatase 55 U/L (38-126) 06/24/20 07:33 Total Protein 6.7 g/dL (6.3-8.2) 06/24/20 07: Albumin 3.5 g/dL (3.5-5.0) 06/24/20 07:33 Triglycerides 73 mg/dL (<150) 06/24/20 07:33 Cholesterol 107 mg/dL (<200) 06/24/20 07:33 LDL Cholesterol, Calc 65 mg/dL (0-99) 06/24/20 07:33 HDL Cholesterol 27 mg/dL (40-60) L 06/24/20 07:33 TSH 3.660 mIU/L (0.465-4.680) 06/24/20 07:33
[2020-06-24] MEDS: buPROPion XL 150 MG TAB.ER.24H PO SCH (12:11)
[2020-06-24] MEDS: ACETAMINOPHEN TAB 325 MG TAB PO PRN (12:12)
--- NOTE | 2020-06-24 12:46 | P.CONS ---
History of Present Illness - Reason for Consult Medical clearance - History of Present Illness Patient is already on oral male admitted after a suicide attempt and the international ingestion of razor blade, although no razor blade was found on x- ray, patient was admitted to surgical floor subsequently cleared by general surgery and was admitted to psychiatric floor. Patient denied any fever chills nausea vomiting dysuria. Patient does have history of seizures was started on his antiseizure medications already. It appears the patient is on Wellbutrin 300 300 mg as an outpatient which was cut down to 150 mg here because of his seizure history Review of Systems REVIEW OF SYSTEMS: CONSTITUTIONAL: No fever, no malaise, no fatigue. HEENT: No recent visual problems or hearing problems. Denied any sore throat. CARDIOVASCULAR: No chest pain, orthopnea, PND, no palpitations, no syncope. PULMONARY: No shortness of breath, no cough, no hemoptysis. GASTROINTESTINAL: No diarrhea, no nausea, no vomiting, no abdominal pain. NEUROLOGICAL: No headaches, no weakness, no numbness. HEMATOLOGICAL: Denies any bleeding or petechiae. GENITOURINARY: Denies any burning micturition, frequency, or urgency. MUSCULOSKELETAL/RHEUMATOLOGICAL: Denies any joint pain, swelling, or any muscle pain. ENDOCRINE: Denies any polyuria or polydipsia. The rest of the 14-point review of systems is negative. Past Medical History Past Medical History: Asthma, Seizure Disorder Additional Past Medical History / Comment(s): back pain, History of Any Multi-Drug Resistant Organisms: None Reported Past Surgical History: Adenoidectomy, Tonsillectomy Additional Past Anesthesia/Blood Transfusion Reaction / Comm: No transfusion history Past Psychological History: ADD/ADHD, Anxiety, Bipolar, Depression, PTSD Additional Psychological History / Comment(s): Manic depression Smoking Status: Current some day smoker Past Alcohol Use History: Occasional Past Drug Use History: Marijuana Medications and Allergies Home Medications Medication Instructions Recorded Confirmed Type QUEtiapine FUMARATE [SEROquel] 400 mg PO HS 06/05/19 06/23/20 History Divalproex Sodium [Depakote] 500 mg PO QAM 05/05/20 06/23/20 History Divalproex Sodium [Depakote] 1,000 mg PO HS 06/18/20 06/23/20 History buPROPion XL [Wellbutrin XL] 300 mg PO DAILY 06/18/20 06/23/20 History Docusate [Colace] 100 mg PO BID #60 cap 06/23/20 06/23/20 Rx Magnesium Hydroxide [Milk of 2,400 mg PO DAILY ml 06/23/20 06/23/20 Rx Magnesia Concentrate] Allergies Allergy/AdvReac Type Severity Reaction Status Date / Time Penicillins Allergy FAMILY Verified 06/18/20 13:21 HISTORY Physical Exam Vitals: Vital Signs Temp Pulse Resp BP Pulse Ox 06/24/20 07:17 97.3 F L 66 16 112/64 93 L 06/23/20 17:47 97.8 F 81 18 133/84 96 Intake and Output 06/23/20 06/24/20 06/24/20 22:59 06:59 14:59 Other: Weight 77.5 kg PHYSICAL EXAMINATION: GENERAL: The patient is alert and oriented x3, not in any acute distress. Well developed, well nourished. HEENT: Pupils are round and equally reacting to light. EOMI. No scleral icterus. No conjunctival pallor. Normocephalic, atraumatic. No pharyngeal erythema. No thyromegaly. CARDIOVASCULAR: S1 and S2 present. No murmurs, rubs, or gallops. PULMONARY: Chest is clear to auscultation, no wheezing or crackles. ABDOMEN: Soft, nontender, nondistended, normoactive bowel sounds. No palpable organomegaly. MUSCULOSKELETAL: No joint swelling or deformity. EXTREMITIES: No cyanosis, clubbing, or pedal edema. NEUROLOGICAL: Gross neurological examination did not reveal any focal deficits. SKIN: No rashes. Results CBC & Chem 7: 06/24/20 07:33 06/24/20 07:33 Labs: Abnormal Lab Results - Last 24 Hours (Table) 06/24/20 06/24/20 Range/Units 07:33 07:33 Plt Count 148 L (150-450) k/uL AST 62 H (17-59) U/L ALT 60 H (4-49) U/L HDL Cholesterol 27 L (40-60) mg/dL Assessment and Plan Plan: -Bipolar disorder: Management as per psychiatry. Cutting down the dose of Wellbutrin is appropriate considering his seizure disorder -Seizure disorder patient was resumed on his antiseizure medications patient didn't denied any recent seizures -Nicotine abuse and polysubstance abuse: Counseling was provided
[2020-06-24 12:57] LABS: Hemoglobin A1C 5.2 % (4.0-6.0)
[2020-06-24] MEDS: hydrOXYzine pamoate 25 MG CAP PO PRN (13:18)
[2020-06-24 13:42] LABS: Basophils # (M) 0.07 k/uL (0-0.2); Lymphocytes # (M) 2.45 k/uL (1.0-4.8); Monocytes # (M) 0.75 k/uL (0-1.0); Neutrophils # (M) 3.33 k/uL (1.3-7.7); Neutrophils % (M) 49 %; Nucleated Red Blood Cells 0 /100 WBC (0-0); Total Cells Counted 100
[2020-06-24] MEDS: QUEtiapine 200 MG TAB PO SCH (20:17)
[2020-06-24] MEDS: PRAZOSIN 1 MG CAP PO SCH (20:17)
[2020-06-24] MEDS: LORazepam 2 MG/ML INJ IM PRN (21:56)
[2020-06-25] MEDS: DIVALPROEX 500 MG TABLET.DR PO SCH ×2 (08:29→20:06)
[2020-06-25] MEDS: NICOTINE 21MG/24HR PATCH TRANSDERM SCH (08:29)
[2020-06-25] MEDS: buPROPion XL 150 MG TAB.ER.24H PO SCH (08:30)
[2020-06-25] MEDS: DOCUSATE 100 MG CAP PO SCH ×2 (08:30→20:06)
[2020-06-25] MEDS: LORazepam 2 MG/ML INJ IM PRN ×2 (08:41→15:56)
[2020-06-25] MEDS ORDERED: VENLAFAXINE HCL ER 75 MG CAP PO SCH (09:00)
[2020-06-25] MEDS ORDERED: hydrOXYzine HCL 50 MG/ML 1 ML VIAL IM PRN (09:08)
--- NOTE | 2020-06-25 09:13 | P.PN ---
Progress Note - Text Progress Note Date: 06/25/20 Interval History: Patient was seen attending group and was directable and agreeable to speak with personal lines underwriter in the office. Patient reports that he had difficulty sleeping last night. He reports that he has received news that his fiance has been cheating on him while he has been incarcerated. He also reports that his uncle has stage III cancer and is not doing well. He reports that his mood continues to be low. He states that he has suicidal ideation that "comes and goes" but is not currently experiencing any suicidal or homicidal ideation, intention, and/or plan. He has been in adherent with his medications and reports no significant side effects. He denies any visual hallucinations but reported that he felt like he was hearing voices last night. He states that he could not understand what they were saying. Mental Status Exam: General Appearance: Patient appears to be stated age is alert, directable, and cooperative. Patient appears to be of thin build, and has multiple tattoos. Behavior: Patient is calmly seated without any agitated behavior. Psychomotor activity is normal. Speech: Patient's speech is fluent and nonpressured. Her low in volume. Mood/Affect: Mood is depressed, affect is congruent and constricted. Suicidality/Homicidality: Patient reports intermittent suicidal ideation. He denies any homicidal ideation, intention, and/or plan. Perceptions: Patient denies any visual hallucinations but reports auditory hallucinations last night. Though content/process: There is no evidence of any delusional thought content and thought process is linear and goal-directed. Memory and concentration: AOX3, grossly intact for the purposes of this session Judgment and insight: Fair Assessment Bipolar disorder, unspecified Posttraumatic stress disorder History of polysubstance use Plan: -Patient continues to meet criteria for inpatient psychiatric admission for symptom stabilization and safety. Patient has signed adult voluntary form and medication consent and was placed in patient's chart. -Medications: Discontinue Wellbutrin as the patient has a history of seizure disorder. Increase Effexor XR to 150 mg by mouth every daily for depression/anxiety/PTSD Continue prazosin 2 mg by mouth daily at bedtime for PTSD related nightmares Continue Seroquel 100 mg by mouth daily at bedtime for mood stabilization/bipolar disorder Start melatonin 5 mg by mouth at bedtime for insomnia Continue Depakote 500 mg by mouth every morning, 1000 mg by mouth daily at bedtime or seizure disorder -Vistaril when necessary for anxiety. -When necessary Ativan/Haldol for agitation/aggression. -NRT - nicotine patch -SW on board for discharge planning. Encouraged the patient to participate in milieu.
[2020-06-25] MEDS: hydrOXYzine pamoate 25 MG CAP PO PRN ×2 (12:20→20:07)
[2020-06-25] MEDS: PRAZOSIN 1 MG CAP PO SCH (20:05)
[2020-06-25] MEDS: QUEtiapine 200 MG TAB PO SCH (20:05)
[2020-06-25] MEDS: MELATONIN 5 MG TABLET PO SCH (20:06)
[2020-06-26] MEDS: DOCUSATE 100 MG CAP PO SCH ×2 (08:23→20:16)
[2020-06-26] MEDS: DIVALPROEX 500 MG TABLET.DR PO SCH ×2 (08:23→20:16)
[2020-06-26] MEDS: NICOTINE 21MG/24HR PATCH TRANSDERM SCH (08:23)
[2020-06-26] MEDS: hydrOXYzine pamoate 25 MG CAP PO PRN ×3 (08:24→21:29)
[2020-06-26] MEDS ORDERED: VENLAFAXINE HCL ER 75 MG CAP PO SCH (09:00)
--- NOTE | 2020-06-26 09:22 | P.PN ---
Progress Note - Text Progress Note Date: 06/26/20 Interval History: Patient was seen attending group and was directable and agreeable to speak with telegraphic typewriter operator in the office. Patient continues to endorse difficulty sleeping at night. He reports his multiple nighttime awakenings. He denies any nightmares. He is not reporting any suicidal or homicidal ideation, intention, and/or plan today. He appears to be very med seeking. He is requesting that he be placed on buprenorphine on for opiate addiction, stating that he was receiving this medication is an IM form from his outpatient provider. If his chart revealed no such medications at this time. We will have to confirm with [facility]. Furthermore, the patient has been requesting Ativan, Klonopin, and his ADHD medications. He was informed that due to his history of drug use, and his current incarceration, these medications would be inappropriate to use for him. He was counseled on controlled substances and the issues that may arise from them. He appears to be fixated on receiving these medications regardless. He denies any auditory or visual hallucinations. He has been adherent with his medications and denies any side effects at this time Mental Status Exam: General Appearance: Patient appears to be stated age is alert, directable, and cooperative. Patient appears to be of thin build, and has multiple tattoos. Behavior: Patient is calmly seated without any agitated behavior. Psychomotor activity is normal. Speech: Patient's speech is fluent and nonpressured. Her low in volume. Mood/Affect: Mood is okay, affect is congruent and constricted. Suicidality/Homicidality: Patient reports intermittent suicidal ideation. He denies any homicidal ideation, intention, and/or plan. Perceptions: Patient denies any visual hallucinations but reports auditory hallucinations last night. Though content/process: There is no evidence of any delusional thought content and thought process is linear and goal-directed. Memory and concentration: AOX3, grossly intact for the purposes of this session Judgment and insight: Fair Assessment Bipolar disorder, unspecified Posttraumatic stress disorder History of polysubstance use Rule out antisocial personality disorder Plan: -Patient continues to meet criteria for inpatient psychiatric admission for symptom stabilization and safety. Patient has signed adult voluntary form and medication consent and was placed in patient's chart. -Medications: Increase Effexor XR to 225 mg by mouth every daily for depression/anxiety/PTSD Continue prazosin 2 mg by mouth daily at bedtime for PTSD related nightmares Decrease Seroquel to 300 mg by mouth daily at bedtime for mood stabilization/bipolar disorder. At 400 mg, the medication is likely to be more activating than sedating. Questionable diagnosis of bipolar disorder as the patient has significant history of substance use that confounds this diagnosis. Continue melatonin 5 mg by mouth at bedtime for insomnia Continue Depakote 500 mg by mouth every morning, 1000 mg by mouth daily at bedtime or seizure disorder -Vistaril when necessary for anxiety. -When necessary Benadryl/Haldol for agitation/aggression. -NRT - nicotine patch -SW on board for discharge planning. Encouraged the patient to participate in milieu.
[2020-06-26] MEDS: diphenhydrAMINE 50 MG/ML 1 ML VIAL IM PRN (11:36)
[2020-06-26] MEDS: HALOPERIDOL LACTATE 5 MG/ML 1 ML VIAL IM PRN (11:36)
[2020-06-26] MEDS: ACETAMINOPHEN TAB 325 MG TAB PO PRN (15:26)
[2020-06-26 16:54] LABS: Appearance,Urine Clear (Clear); Bilirubin,Urine Negative (Negative); Blood,Urine Negative (Negative); Color,Urine Yellow; Glucose,Urine (UA) Negative (Negative); Ketones,Urine Trace (Negative); Leukocyte Esterase,Urine Negative (Negative); Nitrite,Urine Negative (Negative); PH, Urine 6.5 (5.0-8.0); Protein,Urine Negative (Negative); Specific Gravity,Urine 1.027 (1.001-1.035)
[2020-06-26] MEDS: QUEtiapine 100 MG TAB PO SCH (20:16)
[2020-06-26] MEDS: PRAZOSIN 1 MG CAP PO SCH (20:16)
[2020-06-26] MEDS: MELATONIN 5 MG TABLET PO SCH (20:17)
[2020-06-27] MEDS: NICOTINE 21MG/24HR PATCH TRANSDERM SCH (08:49)
[2020-06-27] MEDS: DOCUSATE 100 MG CAP PO SCH ×2 (08:50→20:43)
[2020-06-27] MEDS: VENLAFAXINE HCL ER 75 MG CAP PO SCH (08:50)
[2020-06-27] MEDS: DIVALPROEX 500 MG TABLET.DR PO SCH ×2 (08:50→20:44)
[2020-06-27] MEDS: hydrOXYzine pamoate 25 MG CAP PO PRN ×2 (08:52→16:11)
[2020-06-27] MEDS: diphenhydrAMINE 50 MG/ML 1 ML VIAL IM PRN (11:47)
[2020-06-27] MEDS: HALOPERIDOL LACTATE 5 MG/ML 1 ML VIAL IM PRN (11:48)
--- NOTE | 2020-06-27 12:57 | P.PN ---
Progress Note - Text Progress Note Date: 06/27/20 Clinical Problems: Unspecified depressive disorder, rule out major depressive disorder, rule out bipolar disorder depressed type, posttraumatic stress disorder by history, opiate use disorder, opiate withdrawal, alcohol use disorder Interim history: I reviewed the medical record and interviewed the patient. He is a 30-year-old male transferred from prison where he attempted suicide by swallowing precipitate and hanging himself. He complains of continued feelings of depression and anxiety. He requested prescriptions for Ativan alleging that is the only medication that that controls his anxiety. He was placed on Sublocade while he is in the [facility] substance abuse program earlier this year. He alleged that the medication was continued through her [facility]. He did not receive his last monthly injection because he was in prison. He described subjective opiate withdrawal symptoms including sweating, restlessness, tremor and increased anxiety. His pulse rate has ranged between 55 and 103 beats per minute. Mental status exam: He presented as a disheveled appearing 30-year-old male with multiple tattoos. He made eye contact and attended the interview. He had a fine hand tremor. He had marked psychomotor retardation. His affect was depressed and not reactive. Speech was slow with decreased rhythm and volume. He expressed continued feelings of hopelessness, helplessness and worthlessness. He is expressed wishes and suicidal ideation without specific intent or plan. He didn't express paranoid ideation or delusions. His thinking was concrete but his associations were coherent, logical and goal directed. He denied hallucinations did not appear to responding to internal stimuli. Assessment: He continues to express feelings depression and suicidal thoughts. He is also experiencing opiate withdrawal symptoms. Unfortunately we do not have Sublocade or Suboxone available to suppress his withdrawal symptoms. Given his history of substance abuse I'm reluctant to prescribe a benzodiazepine for treatment of his anxiety complaints. Plan: Continue inpatient treatment. Continue safety precautions. Continue current psychotropic medications. Consider tramadol taper for opiate withdrawal. Encourage participation in therapeutic groups and activities. Evaluate clinical status response to treatment daily basis.
[2020-06-27] MEDS: QUEtiapine 100 MG TAB PO SCH (20:42)
[2020-06-27] MEDS: MELATONIN 5 MG TABLET PO SCH (20:43)
[2020-06-27] MEDS: PRAZOSIN 1 MG CAP PO SCH (20:43)
[2020-06-28] MEDS: NICOTINE 21MG/24HR PATCH TRANSDERM SCH (08:12)
[2020-06-28] MEDS: hydrOXYzine pamoate 25 MG CAP PO PRN ×3 (08:12→21:09)
[2020-06-28] MEDS: DIVALPROEX 500 MG TABLET.DR PO SCH ×2 (08:13→19:49)
[2020-06-28] MEDS: VENLAFAXINE HCL ER 75 MG CAP PO SCH (08:13)
[2020-06-28] MEDS: DOCUSATE 100 MG CAP PO SCH ×2 (08:13→19:49)
[2020-06-28] MEDS: HALOPERIDOL LACTATE 5 MG/ML 1 ML VIAL IM PRN (12:08)
[2020-06-28] MEDS: diphenhydrAMINE 50 MG/ML 1 ML VIAL IM PRN (12:08)
--- NOTE | 2020-06-28 14:08 | P.PN ---
Progress Note - Text Progress Note Date: 06/28/20 Clinical Problems: Unspecified depressive disorder, rule out major depressive disorder, rule out bipolar disorder depressed type, posttraumatic stress disorder by history, opiate use disorder, opiate withdrawal, alcohol use disorder Interim history: I reviewed the medical record and interviewed the patient. He complained of restless and fragmented sleep. He also complained of subjective opiate withdrawal symptoms. He denied feeling hopeless or helpless today. He denied thoughts of or suicide. Mental status exam: He presented as a disheveled appearing 30-year-old male with multiple tattoos. He made eye contact and attended the interview. He had a fine hand tremor. He had mild psychomotor retardation. His affect was bright and reactive. Speech was spontaneous with normal rate and rhythm. He did not express feelings of hopelessness, helplessness and worthles sness. He also did not express wishes and suicidal ideation without specific intent or plan. He was not paranoid, guarded or suspicious. His thinking was concrete but his associations were coherent, logical and goal directed. He denied hallucinations did not appear to responding to internal stimuli. Assessment: He is much less depressed. He is experiencing mild subjective opiate withdrawal symptoms. Plan: Continue inpatient treatment. Continue safety precautions. Continue current psychotropic medications. Increase Seroquel to 400 mg at bedtime. Begin clonidine 0.1 mg 3 times a day when necessary for opiate withdrawal symptoms. Encourage participation in therapeutic groups and activities. Evaluate clinical status response to treatment daily basis.
[2020-06-28] MEDS: cloNIDine HCL 0.1 MG TAB PO PRN ×2 (14:47→21:09)
[2020-06-28 14:49] VITALS: RESP 20
[2020-06-28] MEDS: ACETAMINOPHEN TAB 325 MG TAB PO PRN (15:43)
[2020-06-28] MEDS: MELATONIN 5 MG TABLET PO SCH (19:50)
[2020-06-28] MEDS: PRAZOSIN 1 MG CAP PO SCH (19:50)
[2020-06-28] MEDS ORDERED: QUEtiapine 100 MG TAB PO SCH (21:00)
[2020-06-29 06:27] VITALS: BP 128/64; PULSE 83; TEMP 98.4
[2020-06-29] MEDS: DIVALPROEX 500 MG TABLET.DR PO SCH (08:42)
[2020-06-29] MEDS: DOCUSATE 100 MG CAP PO SCH (08:42)
[2020-06-29] MEDS: NICOTINE 21MG/24HR PATCH TRANSDERM SCH (08:42)
[2020-06-29] MEDS: cloNIDine HCL 0.1 MG TAB PO PRN (08:43)
[2020-06-29] MEDS: hydrOXYzine pamoate 25 MG CAP PO PRN (08:43)
[2020-06-29] MEDS: VENLAFAXINE HCL ER 75 MG CAP PO SCH (08:43)
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
== END 2020-06-29 12:58 | DRG 885 ==
LOC: 3MHU 17:20
PROVIDERS: ADMIT Psychiatry & Neurology Psychiatry; ATTEND Psychiatry & Neurology Psychiatry
DX: F31.81 Bipolar II disorder (principal); F11.23 Opioid dependence with withdrawal; R45.851 Suicidal ideations; F17.210 Nicotine dependence, cigarettes, uncomplicated; F43.10 Post-traumatic stress disorder, unspecified; F90.9 Attention-deficit hyperactivity disorder, unspecified type; G40.909 Epilepsy, unspecified, not intractable, without status epilepticus; J45.909 Unspecified asthma, uncomplicated; G47.00 Insomnia, unspecified; Z56.0 Unemployment, unspecified; Z79.899 Other long term (current) drug therapy; Z88.0 Allergy status to penicillin; Z90.89 Acquired absence of other organs
CPT/HCPCS: 80053; 80061; 81003; 83036; 84443; 85025

== ENCOUNTER 2020-08-17 16:46 | Inpatient (IN) | payer MEDICAID, OTHER ==
--- NOTE | 2020-08-17 17:08 | ED ---
General Adult HPI - General Chief complaint: Psychiatric Symptoms Stated complaint: suicidal Time Seen by Provider: 08/17/20 17:00 Source: patient, police, RN notes reviewed Mode of arrival: ambulatory Limitations: no limitations - History of Present Illness Initial comments: Patient is a pleasant 30-year-old male presenting to the emergency department with depression and suicidal thoughts. Onset of symptoms with depression is years. Patient is currently incarcerated and has additional stressors. Patient was caught by officers attempting to hang himself with socks. Patient has continued suicidal thoughts. Patient does have history of previous suicide attempts including trying to swallow a razor. Patient states he does hear voices however is unable to determine what they are saying. Patient does see shadows and does feel paranoid. Patient has had some medication changes recently and does not feel Depakote works well for him. No new physical complaints. - Related Data Previous Rx's Medication Instructions Recorded Divalproex [Depakote] 1,000 mg PO HS 4 Days tablet. 06/29/20 Divalproex [Depakote] 500 mg PO DAILY 4 Days tablet. 06/29/20 Melatonin 5 mg PO HS 4 Days tablet 06/29/20 Prazosin [Minipress] 2 mg PO HS 4 Days capsule 06/29/20 QUEtiapine [SEROquel] 400 mg PO HS 4 Days tab 06/29/20 Venlafaxine HCl ER [Effexor XR] 225 mg PO DAILY 4 Days cap 06/29/20 Allergies Allergy/AdvReac Type Severity Reaction Status Date / Time Penicillins Allergy FAMILY Verified 08/17/20 16:59 HISTORY Review of Systems ROS Statement: Those systems with pertinent positive or pertinent negative responses have been documented in the HPI. ROS Other: All systems not noted in ROS Statement are negative. Constitutional: Denies: fever Eyes: Denies: eye pain ENT: Denies: ear pain Respiratory: Denies: cough Cardiovascular: Denies: chest pain Endocrine: Denies: fatigue Gastrointestinal: Denies: abdominal pain Genitourinary: Denies: dysuria Musculoskeletal: Denies: back pain Skin: Denies: rash Neurological: Denies: weakness Psychiatric: Reports: as per HPI, depression, suicidal thoughts Past Medical History Past Medical History: Asthma, Seizure Disorder Additional Past Medical History / Comment(s): back pain, History of Any Multi-Drug Resistant Organisms: None Reported Past Surgical History: Adenoidectomy, Tonsillectomy Additional Past Anesthesia/Blood Transfusion Reaction / Comment(s): No transfusion history Past Psychological History: ADD/ADHD, Anxiety, Bipolar, Depression, PTSD Smoking Status: Former smoker Past Alcohol Use History: Occasional Past Drug Use History: None Reported General Exam Limitations: no limitations General appearance: alert, in no apparent distress Head exam: Present: normocephalic Eye exam: Present: normal appearance Neck exam: Present: normal inspection Respiratory exam: Present: normal lung sounds bilaterally Cardiovascular Exam: Present: regular rate, normal rhythm GI/Abdominal exam: Present: soft. Absent: tenderness Extremities exam: Present: normal inspection Neurological exam: Present: alert Psychiatric exam: Present: depressed Skin exam: Present: normal color Course Vital Signs 08/17/20 16:54 Temperature 98.1 F Pulse Rate 106 H Respiratory 18 Rate Blood Pressure 135/91 O2 Sat by Pulse 95 Oximetry Medical Decision Making - Medical Decision Making Patient seen by mental health services with plans for admission. Positive clinical certificate completed. Disposition Clinical Impression: Suicidal ideation, Depression Disposition: TRANSFER TO PSYCH HOSP/UNIT Is patient prescribed a controlled substance at d/c from ED?: No Referrals: None,Stated [Primary Care Provider] - 1-2 days Decision Time: 18:49
[2020-08-17] MEDS ORDERED: MAGNESIUM HYDROXIDE 2,400 MG/10 ML CUP PO PRN (22:22)
[2020-08-17] MEDS ORDERED: MAG HYDROX/AL HYDROX/SIMETH 30 ML CUP PO PRN (22:22)
[2020-08-17] MEDS ORDERED: LORazepam 2 MG/ML INJ IM PRN (22:25)
[2020-08-17] MEDS ORDERED: HALOPERIDOL LACTATE 5 MG/ML 1 ML VIAL IM PRN (22:26)
[2020-08-17] MEDS ORDERED: hydrOXYzine pamoate 25 MG CAP PO SCH (22:30)
[2020-08-17] MEDS ORDERED: DIVALPROEX 500 MG TABLET.DR PO SCH (22:30)
[2020-08-17] MEDS: hydrOXYzine pamoate 25 MG CAP PO SCH (22:50)
[2020-08-17] MEDS: MIRTAZAPINE 15 MG TAB PO SCH (22:50)
[2020-08-17] MEDS: DOCUSATE 100 MG CAP PO SCH (22:50)
[2020-08-17] MEDS: DIVALPROEX 500 MG TABLET.DR PO SCH (22:51)
[2020-08-17] MEDS: QUEtiapine 100 MG TAB PO SCH (22:51)
[2020-08-17] MEDS: PRAZOSIN 1 MG CAP PO SCH (22:51)
--- NOTE | 2020-08-18 02:56 | P.CONS ---
History of Present Illness - Reason for Consult Consult date: 08/18/20 - History of Present Illness Patient is a 30-year-old male with a PMH of seizure disorder, tobacco abuse, and marijuana use , currently incarcerated was brought into the emergency room due to depression and suicidal ideation. The patient was reportedly found at his [place] [facility] cell trying to hang himself with socks. The patient was admitted to the mental health unit where he was seen and evaluated. He reported feeling okay and denied active complaints at the time of interview. Denied chest discomfort, shortness of breath, fever, chills, nausea, vomiting, abdominal pain. Review of Systems Pertinent positives and negatives as discussed in HPI, a complete review of systems was performed and all other systems are negative. Past Medical History Past Medical History: Asthma, Seizure Disorder Additional Past Medical History / Comment(s): back pain, History of Any Multi-Drug Resistant Organisms: None Reported Past Surgical History: Adenoidectomy, Tonsillectomy Additional Past Anesthesia/Blood Transfusion Reaction / Comm: No transfusion history Past Psychological History: ADD/ADHD, Anxiety, Bipolar, Depression, PTSD Additional Psychological History / Comment(s): Manic depression Smoking Status: Never smoker Past Alcohol Use History: Occasional Past Drug Use History: None Reported Medications and Allergies Home Medications Medication Instructions Recorded Confirmed Type Divalproex [Depakote] 1,000 mg PO HS 4 Days tablet. 06/29/20 08/17/20 Rx Divalproex [Depakote] 500 mg PO DAILY 4 Days tablet. 06/29/20 08/17/20 Rx Prazosin [Minipress] 2 mg PO HS 4 Days capsule 06/29/20 08/17/20 Rx QUEtiapine [SEROquel] 400 mg PO HS 4 Days tab 06/29/20 08/17/20 Rx Venlafaxine HCl ER [Effexor XR] 225 mg PO DAILY 4 Days cap 06/29/20 08/17/20 Rx Benztropine Mesylate [Cogentin] 1 mg PO BID 08/17/20 08/17/20 History Clindamycin HCl 300 mg PO TID 08/17/20 08/17/20 History Docusate [Colace] 100 mg PO BID 08/17/20 08/17/20 History Ibuprofen [Advil] 200 mg PO BID PRN 08/17/20 08/17/20 History Mirtazapine [Remeron] 30 mg PO HS 08/17/20 08/17/20 History QUEtiapine [SEROquel] 100 mg PO BID 08/17/20 08/17/20 History hydrOXYzine pamoate [hydrOXYzine 50 mg PO DAILY 08/17/20 08/17/20 History PAMOATE] hydrOXYzine pamoate [hydrOXYzine 100 mg PO HS 08/17/20 08/17/20 History PAMOATE] Allergies Allergy/AdvReac Type Severity Reaction Status Date / Time Penicillins Allergy FAMILY Verified 08/17/20 18:59 HISTORY Physical Exam Vitals: Vital Signs Temp Pulse Pulse Resp BP BP BP 08/17/20 22:56 113 H 142/84 08/17/20 22:08 98.5 F 100 18 114/93 08/17/20 21:38 98.7 F 77 18 140/84 08/17/20 16:54 98.1 F 106 H 18 135/91 Pulse Ox 08/17/20 22:56 08/17/20 22:08 93 L 08/17/20 21:38 97 08/17/20 16:54 95 Intake and Output 08/17/20 08/17/20 08/18/20 14:59 22:59 06:59 Other: Weight 74.1 kg General: non toxic, no distress, appears at stated age, normal weight Derm: no unusual rashes/lesions no unusual ecchymoses, warm, dry Head: atraumatic, normocephalic, symmetric Eyes: EOMI, no lid lag, anicteric sclera, pupils equal round reactive to light ENT: Nose and ears atraumatic, no thrush, no pharyngeal erythema Neck: No thyromegaly, no cervical lymphadenopathy, trachea midline, supple Mouth: no lip lesion, mucus membranes moist Cardiovascular: S1S2 reg, no murmur, positive posterior tibial pulse bilateral, no edema, capillary refill less than 2 seconds Lungs: CTA bilateral, no rhonchi, no rales , no accessory muscle use Abdominal: soft, nontender to palpation, no guarding, no appreciable organomegaly, normal bowel sounds Ext: no gross muscle atrophy, muscle strength 5 out of 5 in all 4 extremities grossly, no contractures, Neuro: CN II-XI grossly intact, light touch intact all 4 extremities, finger to nose within normal limits, Psych: Alert, oriented, anxious affect Assessment and Plan Plan: Tachycardia -Likely secondary to anxiety -Monitor for now Seizure disorder -Continue home medications Depression and suicidal ideation -As per psychiatry Thank you for allowing us to participate in the care of this patient. We will follow peripherally. Do not hesitate to contact us with questions. Someone can be reached from the [facility] hospitalist group at all hours of the day at [phone].
[2020-08-18] MEDS: LORazepam 1 MG TAB PO PRN ×2 (04:25→14:27)
[2020-08-18 07:23] LABS: ALT 68 U/L (4-49); AST 63 U/L (17-59); African American GFR (CKD) >90 (>60 ml/min/1.73 sqM); Alkaline Phosphatase 64 U/L (38-126); Anion Gap 10 mmol/L; Blood Urea Nitrogen 20 mg/dL (9-20); Calcium 9.6 mg/dL (8.4-10.2); Carbon Dioxide 31 mmol/L (22-30); Chloride 100 mmol/L (98-107); Cholesterol 174 mg/dL (<200); Glucose 106 mg/dL (74-99); HDL Cholesterol 41 mg/dL (40-60); LDL Cholesterol,Calculated 119 mg/dL (0-99); Non-African American GFR(CKD) >90 (>60 ml/min/1.73 sqM); Sodium 141 mmol/L (137-145); Total Bilirubin 1.4 mg/dL (0.2-1.3); Total Protein 8.7 g/dL (6.3-8.2); Triglycerides 68 mg/dL (<150)
[2020-08-18 07:37] LABS: HCT 47.2 % (39.0-53.0); HGB 16.8 gm/dL (13.0-17.5); MCH 33.3 pg (25.0-35.0); MCHC 35.5 g/dL (31.0-37.0); MCV 93.6 fL (80.0-100.0); Mean Platelet Volume 7.6; Platelet Count 172 k/uL (150-450); RBC 5.04 m/uL (4.30-5.90); RDW 13.2 % (11.5-15.5); WBC 9.5 k/uL (3.8-10.6)
[2020-08-18] MEDS: NICOTINE 14MG/24HR PATCH TRANSDERM SCH (07:43)
[2020-08-18] MEDS: hydrOXYzine pamoate 25 MG CAP PO SCH ×2 (07:43→21:43)
[2020-08-18] MEDS: DOCUSATE 100 MG CAP PO SCH ×3 (07:43→21:43)
[2020-08-18] MEDS: BENZTROPINE MESYLATE 1 MG TAB PO SCH ×2 (07:44→21:44)
[2020-08-18] MEDS: QUEtiapine 100 MG TAB PO SCH ×2 (07:44→21:43)
[2020-08-18] MEDS: DIVALPROEX 500 MG TABLET.DR PO SCH ×2 (07:44→21:44)
[2020-08-18 08:51] LABS: Band Neutrophils % 1 %; Lymphocytes # (M) 4.66 k/uL (1.0-4.8); Monocytes # (M) 0.95 k/uL (0-1.0); Neutrophils % (M) 40 %; Nucleated Red Blood Cells 0 /100 WBC (0-0); Total Cells Counted 100
[2020-08-18 08:52] LABS: Poikilocytosis (M) Present
[2020-08-18] MEDS ORDERED: VENLAFAXINE HCL ER 75 MG CAP PO SCH (09:00)
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
[2020-08-18] MEDS: haloperidoL 5 MG TAB PO PRN (14:27)
[2020-08-18 14:48] LABS: Hemoglobin A1C 4.9 % (4.0-6.0)
[2020-08-18] MEDS ORDERED: LORazepam 2 MG/ML INJ IM STA (15:31)
[2020-08-18] MEDS ORDERED: HALOPERIDOL LACTATE 5 MG/ML 1 ML VIAL IM PRN (15:32)
[2020-08-18] MEDS ORDERED: HALOPERIDOL LACTATE 5 MG/ML 1 ML VIAL IM ONE (15:34)
[2020-08-18] MEDS: MIRTAZAPINE 15 MG TAB PO SCH (21:43)
[2020-08-18] MEDS: PRAZOSIN 1 MG CAP PO SCH (21:44)
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
[2020-08-19] MEDS: NICOTINE 14MG/24HR PATCH TRANSDERM SCH (10:14)
[2020-08-19] MEDS: DIVALPROEX 500 MG TABLET.DR PO SCH ×2 (10:15→20:05)
[2020-08-19] MEDS: BENZTROPINE MESYLATE 1 MG TAB PO SCH ×2 (10:15→20:04)
[2020-08-19] MEDS: hydrOXYzine pamoate 25 MG CAP PO SCH ×2 (10:15→20:05)
[2020-08-19] MEDS: DOCUSATE 100 MG CAP PO SCH ×2 (10:15→20:05)
[2020-08-19] MEDS: VENLAFAXINE HCL ER 75 MG CAP PO SCH (10:16)
[2020-08-19] MEDS: QUEtiapine 100 MG TAB PO SCH (10:17)
[2020-08-19] MEDS: LORazepam 1 MG TAB PO PRN (18:22)
[2020-08-19] MEDS: MIRTAZAPINE 15 MG TAB PO SCH (20:04)
[2020-08-19] MEDS: PRAZOSIN 1 MG CAP PO SCH (20:04)
[2020-08-19] MEDS: haloperidoL 5 MG TAB PO PRN (20:59)
[2020-08-19] MEDS ORDERED: QUEtiapine 100 MG TAB PO SCH (21:00)
[2020-08-20] MEDS ORDERED: PALIPERIDONE 3 MG TAB.ER.24 PO SCH (09:00)
[2020-08-20] MEDS: NICOTINE 14MG/24HR PATCH TRANSDERM SCH (09:32)
[2020-08-20] MEDS: DIVALPROEX 500 MG TABLET.DR PO SCH ×2 (09:33→19:58)
[2020-08-20] MEDS: VENLAFAXINE HCL ER 75 MG CAP PO SCH (09:33)
[2020-08-20] MEDS: BENZTROPINE MESYLATE 1 MG TAB PO SCH (09:33)
[2020-08-20] MEDS: DOCUSATE 100 MG CAP PO SCH ×2 (09:33→19:58)
[2020-08-20] MEDS: hydrOXYzine pamoate 25 MG CAP PO SCH ×2 (09:33→19:59)
[2020-08-20] MEDS ORDERED: BENZTROPINE MESYLATE 1 MG TAB PO PRN (10:35)
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
[2020-08-20] MEDS: LORazepam 1 MG TAB PO PRN (12:24)
[2020-08-20] MEDS: haloperidoL 5 MG TAB PO PRN (16:26)
[2020-08-20] MEDS: MIRTAZAPINE 15 MG TAB PO SCH (19:59)
[2020-08-20] MEDS: PRAZOSIN 1 MG CAP PO SCH (19:59)
[2020-08-21] MEDS ORDERED: PALIPERIDONE 6 MG TAB.ER.24 PO SCH (09:00)
[2020-08-21] MEDS: DIVALPROEX 500 MG TABLET.DR PO SCH ×2 (09:03→19:55)
[2020-08-21] MEDS: NICOTINE 14MG/24HR PATCH TRANSDERM SCH (09:03)
[2020-08-21] MEDS: DOCUSATE 100 MG CAP PO SCH ×3 (09:03→19:56)
[2020-08-21] MEDS: VENLAFAXINE HCL ER 75 MG CAP PO SCH (09:03)
[2020-08-21] MEDS: LORazepam 1 MG TAB PO PRN ×2 (09:07→16:12)
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
[2020-08-21] MEDS: haloperidoL 5 MG TAB PO PRN (15:39)
[2020-08-21] MEDS: hydrOXYzine pamoate 25 MG CAP PO SCH (19:54)
[2020-08-21] MEDS: MIRTAZAPINE 15 MG TAB PO SCH (19:56)
[2020-08-21] MEDS: PRAZOSIN 1 MG CAP PO SCH (19:57)
[2020-08-22] MEDS: NICOTINE 14MG/24HR PATCH TRANSDERM SCH (07:57)
[2020-08-22] MEDS: DOCUSATE 100 MG CAP PO SCH ×2 (07:58→20:51)
[2020-08-22] MEDS: DIVALPROEX 500 MG TABLET.DR PO SCH ×2 (07:58→20:51)
[2020-08-22] MEDS: VENLAFAXINE HCL ER 75 MG CAP PO SCH (07:58)
[2020-08-22] MEDS: LORazepam 1 MG TAB PO PRN ×2 (08:01→17:39)
--- NOTE | 2020-08-22 10:33 | P.PN ---
Progress Note - Text Progress Note Date: 08/22/20 Interval history: Patient was seen lying in his bed this morning and was directable and agreeable to speak with magnetic tape typewriter operator. Patient did not want to leave his room and was covered with his blankets. He answered questions very concretely. He states that he is still feeling "depressed" however denies any suicidal thoughts. He denies any anxiety today. He states that he was able to sleep fairly last night. He claims that he will try to go to groups today however did not go to groups yesterday. He denied any overnight complaints or any complaints about his medications and has been taking them. At this time patient denies any suicidal or homicidal ideations intent or plan. Denies any Auditory or visual hallucinations. Patient denies any side effects from the medications and has been compliant with meds. Mental status exam: General Appearance: Patient appears to be covert and his blankets, stated age is alert, directable, and attempts to be cooperative. Marginal hygiene and grooming. Behavior: No agitated behavior. Patient is calm and directable Speech: Patient's speech is fluent and nonpressured. Soft tone of voice. Mood/Affect: Mood is "depressed" improving mildly, affect is congruent and constricted. Suicidality/Homicidality: Patient denies having any suicidal or homicidal ideation intent or plan. Perceptions: Patient denies any auditory or visual hallucinations. Though content/process: [place], poverty of content and speech. Denies any delusions or paranoia. Memory and concentration: AOX3, grossly intact for the purposes of this session Judgment and insight: Poor, improving mildly Assessment/Plan: Continue with current diagnosis. Patient continues to meet criteria for inpatient psychiatric admission for symptom stabilization and safety.Patient will be maintained on current psychotropic medication regimen. Monitor for medication compliance and for any psychotropic medication side effects. Will continue to monitor ongoing response to treatment. Encouraged participation in milieu.
[2020-08-22] MEDS: haloperidoL 5 MG TAB PO PRN (12:35)
[2020-08-22 20:37] LABS: Amphetamine Screen,Urine Not Detected (NotDetected); Barbiturate Screen,Urine Not Detected (NotDetected); Benzodiazepines Screen,Urine Detected (NotDetected); Cocaine Screen,Urine Not Detected (NotDetected); Methadone Screen, Urine Not Detected (NotDetected); Opiate Screen,Urine Not Detected (NotDetected); Oxycodone Screen, Urine Not Detected (NotDetected); Phencyclidine Screen,Urine Not Detected (NotDetected); Tricyclic Antidepressant,Urine Not Detected (NotDetected); Urn Cannabinoid Scrn Not Detected (NotDetected)
[2020-08-22] MEDS: hydrOXYzine pamoate 25 MG CAP PO SCH (20:50)
[2020-08-22] MEDS: PRAZOSIN 1 MG CAP PO SCH (20:51)
[2020-08-22] MEDS: MIRTAZAPINE 15 MG TAB PO SCH (20:51)
[2020-08-23] MEDS: NICOTINE 14MG/24HR PATCH TRANSDERM SCH (08:26)
[2020-08-23] MEDS: DOCUSATE 100 MG CAP PO SCH ×2 (08:27→20:42)
[2020-08-23] MEDS: DIVALPROEX 500 MG TABLET.DR PO SCH ×2 (08:27→20:42)
[2020-08-23] MEDS: VENLAFAXINE HCL ER 75 MG CAP PO SCH (08:28)
[2020-08-23] MEDS: ACETAMINOPHEN TAB 325 MG TAB PO PRN (08:29)
[2020-08-23] MEDS: LORazepam 1 MG TAB PO PRN ×2 (08:31→15:34)
[2020-08-23] MEDS ORDERED: VENLAFAXINE HCL ER 75 MG CAP PO STA (10:48)
--- NOTE | 2020-08-23 10:52 | P.PN ---
Progress Note - Text Progress Note Date: 08/23/20 Interval history: Patient was seen lying in his bed this morning and was directable and agreeable to speak with remote mortgage underwriter. Patient once again did not want to leave his room and was covered with his blankets. He appeared to be in mild distress and claims that he is "not feeling too good today". He went on to speak more about his depression however did state that he is not having suicidal thoughts today. He states that he has been talking to his mother over the phone and also some patients on the unit. He states that he still has to finish up longterm time once he is discharged and claims that his sentence will be up in January. He answered questions very concretely. He denies any anxiety today. He claims that he was having poor sleep last night and asked about possibly being put on Seroquel. He claims that he will try to go to groups today. He denied any overnight complaints or any complaints about his medications and has been taking them. At this time patient denies any suicidal or homicidal ideations intent or plan. Denies any Auditory or visual hallucinations. Patient denies any side effects from the medications and has been compliant with meds. Mental status exam: General Appearance: Patient appears to be covert and his blankets, stated age is alert, directable, and attempts to be cooperative. Marginal hygiene and grooming. Behavior: No agitated behavior. Patient is calm and directable Speech: Patient's speech is fluent and nonpressured. Soft tone of voice. Mood/Affect: Mood is "depressed" improving mildly, affect is congruent and constricted. Suicidality/Homicidality: Patient denies having any suicidal or homicidal ideation intent or plan. Perceptions: Patient denies any auditory or visual hallucinations. Though content/process: [place], poverty of content and speech. Denies any delusions or paranoia. Memory and concentration: AOX3, grossly intact for the purposes of this session Judgment and insight: Poor, improving mildly Assessment/Plan: Continue with current diagnosis. Patient continues to meet criteria for inpatient psychiatric admission for symptom stabilization and safety.Patient will be maintained on current psychotropic medication regimen, with the exception of increasing Effexor to 225 mg daily for mood/anxiety. Senior Data Architect also added melatonin 5 mg daily at bedtime for insomnia. Monitor for medication compliance and for any psychotropic medication side effects. Will continue to monitor ongoing response to treatment. Encouraged participation in milieu.
[2020-08-23] MEDS: haloperidoL 5 MG TAB PO PRN (14:13)
[2020-08-23] MEDS: hydrOXYzine pamoate 25 MG CAP PO SCH (20:42)
[2020-08-23] MEDS: PRAZOSIN 1 MG CAP PO SCH (20:44)
[2020-08-23] MEDS: MIRTAZAPINE 15 MG TAB PO SCH (20:45)
[2020-08-23] MEDS: MELATONIN 5 MG TABLET PO SCH (20:45)
[2020-08-24] MEDS: NICOTINE 14MG/24HR PATCH TRANSDERM SCH (08:51)
[2020-08-24] MEDS: DIVALPROEX 500 MG TABLET.DR PO SCH ×2 (08:52→19:51)
[2020-08-24] MEDS: LORazepam 1 MG TAB PO PRN (08:53)
[2020-08-24] MEDS: DOCUSATE 100 MG CAP PO SCH ×2 (08:53→19:51)
[2020-08-24] MEDS: VENLAFAXINE HCL ER 75 MG CAP PO SCH (08:53)
[2020-08-24] MEDS ORDERED: fluPHENAZine DECANOATE 25 MG/ML 5ML MDV IM ONE (11:15)
--- NOTE | 2020-08-24 11:22 | P.PN ---
Progress Note - Text Progress Note Date: 08/24/20 Interval History: Patient was seen resting in bed and was directable and agreeable to speak with the machine sign writer in his room. The patient continues to endorse GI symptoms. He states that he feels like he is having stomach cramps. He is otherwise not reporting any significant issues regarding his mental health. He is not reporting any suicidal or homicidal ideation, intention, and/or plan. He is not reporting any auditory or visual hallucinations at this time. She is denying any paranoia or delusions today. He does express that he is supposed to be transferred to a forensic psychiatric facility and not going back to alf but the treatment team has not been informed of this. He is agreeable to receiving Prolixin Decanoate today. He has been adherent with his medications and is not reporting any significant side effects at this time. He reports attending group yesterday. He has been able to shower and address his hygiene and ADLs. Depakote level was obtained over the weekend and was found to be 89.9. Mental Status Exam: General Appearance: Patient appears to be stated age is alert, directable, and cooperative. Appears tall and with improved hygiene and grooming. Behavior: Patient is calmly lying down in bed without any agitated behavior. Fair eye contact. Appropriate. Speech: Patient's speech is fluent and nonpressured. Low in volume. Mood/Affect: Mood is "not feeling too well," affect is constricted in range. Suicidality/Homicidality: Patient reports no suicidal or homicidal ideation, intention, and/or plan. Perceptions: Patient is not endorsing any overt auditory or visual hallucinations today. Though content/process: Patient is not reporting any significant paranoia or other delusions. Linear and logical in short conversation. Memory and concentration: AOX3, grossly intact for the purposes of this session Judgment and insight: Improving mildly Assessment Bipolar disorder, type I Psychostimulant use disorder Plan: -Patient continues to meet criteria for inpatient psychiatric admission for symptom stabilization and safety. Patient has been petitioned and certified. He is currently incarcerated for third-degree home invasion. -Medications: -Continue Depakote 500 mg by mouth every morning, 1000 mg by mouth at bedtime - Depakote level 89.9. -Continue Effexor 225 mg by mouth daily -Continue hydroxyzine 100 mg by mouth at bedtime for insomnia -Continue prazosin 2 mg by mouth at bedtime -Continue Remeron 30 mg by mouth at bedtime -Continue melatonin 5 mg by mouth at bedtime -We will administer Prolixin Decanoate 12.5 mg IM today. Patient is to receive his medication every 3 weeks. -When necessary Ativan and Haldol for agitation/aggression. -SW on board for discharge planning. Encouraged the patient to participate in milieu.
[2020-08-24] MEDS: ACETAMINOPHEN TAB 325 MG TAB PO PRN (16:09)
[2020-08-24] MEDS: haloperidoL 5 MG TAB PO PRN (18:33)
[2020-08-24] MEDS: hydrOXYzine pamoate 25 MG CAP PO SCH (19:50)
[2020-08-24] MEDS: PRAZOSIN 1 MG CAP PO SCH (19:51)
[2020-08-24] MEDS: MELATONIN 5 MG TABLET PO SCH (19:51)
[2020-08-24] MEDS: MIRTAZAPINE 15 MG TAB PO SCH (19:51)
[2020-08-25 06:50] VITALS: BP 100/53; PULSE 59; RESP 16; TEMP 97.9
[2020-08-25] MEDS: DIVALPROEX 500 MG TABLET.DR PO SCH (08:01)
[2020-08-25] MEDS: NICOTINE 14MG/24HR PATCH TRANSDERM SCH (08:01)
[2020-08-25] MEDS: DOCUSATE 100 MG CAP PO SCH (08:02)
[2020-08-25] MEDS: LORazepam 1 MG TAB PO PRN (08:02)
[2020-08-25] MEDS: VENLAFAXINE HCL ER 75 MG CAP PO SCH (08:02)
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
[2020-08-25] MEDS: haloperidoL 5 MG TAB PO PRN (12:26)
== END 2020-08-25 13:16 | DRG 885 ==
LOC: EC 16:46 → 3MHU 21:36
PROVIDERS: ADMIT Psychiatry & Neurology Psychiatry; ATTEND Psychiatry & Neurology Psychiatry
DX: F31.9 Bipolar disorder, unspecified (principal); F15.20 Other stimulant dependence, uncomplicated; R45.851 Suicidal ideations; F43.10 Post-traumatic stress disorder, unspecified; F43.25 Adjustment disorder with mixed disturbance of emotions and conduct; G40.909 Epilepsy, unspecified, not intractable, without status epilepticus; G47.00 Insomnia, unspecified; J45.909 Unspecified asthma, uncomplicated; K59.00 Constipation, unspecified; Z65.3 Problems related to other legal circumstances; Z79.899 Other long term (current) drug therapy; Z87.891 Personal history of nicotine dependence; Z91.14 Patient's other noncompliance with medication regimen; Z91.5 Personal history of self-harm; Z20.822 Contact with and (suspected) exposure to COVID-19; Z88.0 Allergy status to penicillin
CPT/HCPCS: 80053; 80061; 80164; 80165; 80306; 82075; 83036; 84443; 85025; 87635; 99285

== ENCOUNTER 2021-02-28 21:23 | Observation (INO) | payer OTHER ==
[2021-02-28] MEDS ORDERED: SODIUM CHLORIDE 0.9% 500 ML 500 ML IV STA (21:33)
[2021-02-28] MEDS ORDERED: ONDANSETRON 4 MG/2 ML VIAL IVP STA (21:33)
[2021-02-28] MEDS ORDERED: SODIUM CHLORIDE 0.9% 1,000 ML IV STA ×2 (21:33)
[2021-02-28] MEDS ORDERED: LORazepam 2 MG/ML INJ IV STA (21:34)
--- NOTE | 2021-02-28 21:43 | ED ---
Altered Mental Status HPI - General Chief Complaint: Altered Mental Status Stated Complaint: Altered Mental Status Time Seen by Provider: 02/28/21 21:28 Source: patient, EMS Mode of arrival: EMS Limitations: altered mental status - History of Present Illness MD Complaint: altered mental status, confusion, decreased responsiveness, intoxication -: unknown Severity: severe Consistency of Symptoms: waxing and waning, getting worse Context: history of similar presentation Associated Symptoms: denies other symptoms - Related Data Home Medications Medication Instructions Recorded Confirmed Benztropine Mesylate [Cogentin] 1 mg PO BID 02/28/21 02/28/21 Divalproex [Depakote] 750 mg PO HS 02/28/21 02/28/21 [place] Carbonate 300 mg PO BID 02/28/21 02/28/21 QUEtiapine [SEROquel] 100 mg PO DAILY 02/28/21 02/28/21 QUEtiapine [SEROquel] 400 mg PO HS 02/28/21 02/28/21 Venlafaxine HCl [Effexor XR] 37.5 mg PO DAILY 02/28/21 02/28/21 cloNIDine HCL 0.1 mg PO HS 02/28/21 02/28/21 Previous Rx's Medication Instructions Recorded Divalproex [Depakote] 500 mg PO DAILY 30 Days tablet. 08/25/20 Venlafaxine HCl ER [Effexor XR] 225 mg PO DAILY 30 Days cap.er.24h 08/25/20 Allergies Allergy/AdvReac Type Severity Reaction Status Date / Time Penicillins Allergy FAMILY Verified 02/28/21 22:10 HISTORY Review of Systems ROS Statement: Those systems with pertinent positive or pertinent negative responses have been documented in the HPI. ROS Other: All systems not noted in ROS Statement are negative. Past Medical History Past Medical History: Asthma, Seizure Disorder Additional Past Medical History / Comment(s): back pain, History of Any Multi-Drug Resistant Organisms: None Reported Past Surgical History: Adenoidectomy, Tonsillectomy Additional Past Anesthesia/Blood Transfusion Reaction / Comment(s): No transfusion history Past Psychological History: ADD/ADHD, Anxiety, Bipolar, Depression, PTSD Smoking Status: Current every day smoker Past Alcohol Use History: Occasional Past Drug Use History: Methamphetamine - Past Family History Father Family Medical History: Unable to Obtain General Exam Limitations: altered mental status General appearance: alert, in no apparent distress Head exam: Present: atraumatic, normocephalic, normal inspection Eye exam: Present: normal appearance, PERRL, EOMI. Absent: scleral icterus, con junctival injection, periorbital swelling ENT exam: Present: normal exam, mucous membranes moist Neck exam: Present: normal inspection. Absent: tenderness, meningismus, lymphadenopathy Respiratory exam: Present: normal lung sounds bilaterally. Absent: respiratory distress, wheezes, rales, rhonchi, stridor Cardiovascular Exam: Present: regular rate, normal rhythm, normal heart sounds. Absent: systolic murmur, diastolic murmur, rubs, gallop, clicks GI/Abdominal exam: Present: soft, normal bowel sounds. Absent: distended, tenderness, guarding, rebound, rigid Extremities exam: Present: normal inspection, full ROM, normal capillary refill. Absent: tenderness, pedal edema, joint swelling, calf tenderness Back exam: Present: normal inspection Neurological exam: Present: alert, oriented X3, CN II-XII intact Psychiatric exam: Present: normal affect, normal mood Skin exam: Present: warm, dry, intact, normal color. Absent: rash Course Vital Signs 02/28/21 02/28/21 02/28/21 21:27 21:30 21:45 Temperature 99.1 F Pulse Rate 121 H 112 H Respiratory 12 14 Rate Blood Pressure 127/84 127/84 O2 Sat by Pulse 94 L 95 95 Oximetry 02/28/21 02/28/21 02/28/21 22:00 22:15 22:45 Temperature Pulse Rate 108 H 102 H 85 Respiratory 14 14 16 Rate Blood Pressure 109/81 111/68 101/61 O2 Sat by Pulse 95 95 95 Oximetry 02/28/21 02/28/21 23:15 23:45 Temperature 98.8 F Pulse Rate 79 87 Respiratory 17 18 Rate Blood Pressure 111/66 110/74 O2 Sat by Pulse 95 92 L Oximetry - Reevaluation(s) Reevaluation #1: 03/01/21 Medical record is reviewed Patient symptoms are improved here in the ER Patient is in no acute distress Patient informed results questions answered Medical Decision Making - Lab Data Result diagrams: 02/28/21 21:49 03/01/21 05:00 Lab Results 02/28/21 02/28/21 02/28/21 Range/Units 21:49 21:49 21:49 WBC 8.2 (3.8-10.6) k/uL RBC 4.32 (4.30-5.90) m/uL Hgb 14.5 (13.0-17.5) gm/dL Hct 42.5 (39.0-53.0) % MCV 98.5 (80.0-100.0) fL MCH 33.7 (25.0-35.0) pg MCHC 34.2 (31.0-37.0) g/dL RDW 13.6 (11.5-15.5) % Plt Count 248 (150-450) k/uL MPV 7.5 Neutrophils % Not Reportable Neutrophils % (Manual) 47 % Lymphocytes % Not Reportable Lymphocytes % (Manual) 33 % Monocytes % Not Reportable Monocytes % (Manual) 20 % Eosinophils % Not Reportable Basophils % Not Reportable Neutrophils # Not Reportable Neutrophils # (Manual) 3.85 (1.3-7.7) k/uL Lymphocytes # Not Reportable Lymphocytes # (Manual) 2.71 (1.0-4.8) k/uL Monocytes # Not Reportable Monocytes # (Manual) 1.64 H (0-1.0) k/uL Eosinophils # Not Reportable Basophils # Not Reportable Nucleated RBCs 0 (0-0) /100 WBC Manual Slide Review Performed PT 10.6 (9.0-12.0) sec INR 1.0 (<1.2) APTT 22.9 (22.0-30.0) sec Sodium (137-145) mmol/L Potassium (3.5-5.1) mmol/L Chloride (98-107) mmol/L Carbon Dioxide (22-30) mmol/L Anion Gap mmol/L BUN (9-20) mg/dL Creatinine (0.66-1.25) mg/dL Est GFR (CKD-EPI)AfAm (>60 ml/min/1.73 sqM) Est GFR (CKD-EPI)NonAf (>60 ml/min/1.73 sqM) Glucose (74-99) mg/dL Plasma Lactic Acid Matheus (0.7-2.0) mmol/L Calcium (8.4-10.2) mg/dL Phosphorus (2.5-4.5) mg/dL Magnesium (1.6-2.3) mg/dL Total Bilirubin (0.2-1.3) mg/dL AST (17-59) U/L ALT (4-49) U/L Alkaline Phosphatase (38-126) U/L Creatine Kinase (55-170) U/L CK-MB (CK-2) (0.0-2.4) ng/mL Troponin I (0.000-0.034) ng/mL Total Protein (6.3-8.2) g/dL Albumin (3.5-5.0) g/dL Urine Color Yellow Urine Appearance Clear (Clear) Urine pH 7.0 (5.0-8.0) Ur Specific [place] 1.014 (1.001-1.035) Urine Protein Negative (Negative) Urine Glucose (UA) Negative (Negative) Urine Ketones Negative (Negative) Urine Blood Negative (Negative) Urine Nitrite Negative (Negative) Urine Bilirubin Negative (Negative) Urine Urobilinogen <2.0 (<2.0) mg/dL Ur Leukocyte Esterase Negative (Negative) Salicylates mg/dL Urine Opiates Screen (NotDetected) Ur Oxycodone Screen (NotDetected) Urine Methadone Screen (NotDetected) Ur Propoxyphene Screen (NotDetected) Acetaminophen ug/mL Ur Barbiturates Screen (NotDetected) U Tricyclic Antidepress (NotDetected) Ur Phencyclidine Scrn (NotDetected) Ur Amphetamines Screen (NotDetected) U Methamphetamines Scrn (NotDetected) U Benzodiazepines Scrn (NotDetected) Urine Cocaine Screen (NotDetected) U Marijuana (THC) Screen (NotDetected) 02/28/21 02/28/21 02/28/21 Range/Units 21:49 21:49 21:49 WBC (3.8-10.6) k/uL RBC (4.30-5.90) m/uL Hgb (13.0-17.5) gm/dL Hct (39.0-53.0) % MCV (80.0-100.0) fL MCH (25.0-35.0) pg MCHC (31.0-37.0) g/dL RDW (11.5-15.5) % Plt Count (150-450) k/uL MPV Neutrophils % Neutrophils % (Manual) % Lymphocytes % Lymphocytes % (Manual) % Monocytes % Monocytes % (Manual) % Eosinophils % Basophils % Neutrophils # Neutrophils # (Manual) (1.3-7.7) k/uL Lymphocytes # Lymphocytes # (Manual) (1.0-4.8) k/uL Monocytes # Monocytes # (Manual) (0-1.0) k/uL Eosinophils # Basophils # Nucleated RBCs (0-0) /100 WBC Manual Slide Review PT (9.0-12.0) sec INR (<1.2) APTT (22.0-30.0) sec Sodium 138 (137-145) mmol/L Potassium 4.3 (3.5-5.1) mmol/L Chloride 106 (98-107) mmol/L Carbon Dioxide 22 (22-30) mmol/L Anion Gap 10 mmol/L BUN 16 (9-20) mg/dL Creatinine 0.93 (0.66-1.25) mg/dL Est GFR (CKD-EPI)AfAm >90 (>60 ml/min/1.73 sqM) Est GFR (CKD-EPI)NonAf >90 (>60 ml/min/1.73 sqM) Glucose 102 H (74-99) mg/dL Plasma Lactic Acid Matheus 1.1 (0.7-2.0) mmol/L Calcium 9.4 (8.4-10.2) mg/dL Phosphorus 3.2 (2.5-4.5) mg/dL Magnesium 2.0 (1.6-2.3) mg/dL Total Bilirubin 0.7 (0.2-1.3) mg/dL AST 96 H (17-59) U/L ALT 94 H (4-49) U/L Alkaline Phosphatase 78 (38-126) U/L Creatine Kinase 83 (55-170) U/L CK-MB (CK-2) 2.4 (0.0-2.4) ng/mL Troponin I <0.012 (0.000-0.034) ng/mL Total Protein 7.3 (6.3-8.2) g/dL Albumin 4.3 (3.5-5.0) g/dL Urine Color Urine Appearance (Clear) Urine pH (5.0-8.0) Ur Specific [place] (1.001-1.035) Urine Protein (Negative) Urine Glucose (UA) (Negative) Urine Ketones (Negative) Urine Blood (Negative) Urine Nitrite (Negative) Urine Bilirubin (Negative) Urine Urobilinogen (<2.0) mg/dL Ur Leukocyte Esterase (Negative) Salicylates <1.0 mg/dL Urine Opiates Screen (NotDetected) Ur Oxycodone Screen (NotDetected) Urine Methadone Screen (NotDetected) Ur Propoxyphene Screen (NotDetected) Acetaminophen <10.0 ug/mL Ur Barbiturates Screen (NotDetected) U Tricyclic Antidepress (NotDetected) Ur Phencyclidine Scrn (NotDetected) Ur Amphetamines Screen (NotDetected) U Methamphetamines Scrn (NotDetected) U Benzodiazepines Scrn (NotDetected) Urine Cocaine Screen (NotDetected) U Marijuana (THC) Screen (NotDetected) 02/28/21 Range/Units 22:13 WBC (3.8-10.6) k/uL RBC (4.30-5.90) m/uL Hgb (13.0-17.5) gm/dL Hct (39.0-53.0) % MCV (80.0-100.0) fL MCH (25.0-35.0) pg MCHC (31.0-37.0) g/dL RDW (11.5-15.5) % Plt Count (150-450) k/uL MPV Neutrophils % Neutrophils % (Manual) % Lymphocytes % Lymphocytes % (Manual) % Monocytes % Monocytes % (Manual) % Eosinophils % Basophils % Neutrophils # Neutrophils # (Manual) (1.3-7.7) k/uL Lymphocytes # Lymphocytes # (Manual) (1.0-4.8) k/uL Monocytes # Monocytes # (Manual) (0-1.0) k/uL Eosinophils # Basophils # Nucleated RBCs (0-0) /100 WBC Manual Slide Review PT (9.0-12.0) sec INR (<1.2) APTT (22.0-30.0) sec Sodium (137-145) mmol/L Potassium (3.5-5.1) mmol/L Chloride (98-107) mmol/L Carbon Dioxide (22-30) mmol/L Anion Gap mmol/L BUN (9-20) mg/dL Creatinine (0.66-1.25) mg/dL Est GFR (CKD-EPI)AfAm (>60 ml/min/1.73 sqM) Est GFR (CKD-EPI)NonAf (>60 ml/min/1.73 sqM) Glucose (74-99) mg/dL Plasma Lactic Acid Matheus (0.7-2.0) mmol/L Calcium (8.4-10.2) mg/dL Phosphorus (2.5-4.5) mg/dL Magnesium (1.6-2.3) mg/dL Total Bilirubin (0.2-1.3) mg/dL AST (17-59) U/L ALT (4-49) U/L Alkaline Phosphatase (38-126) U/L Creatine Kinase (55-170) U/L CK-MB (CK-2) (0.0-2.4) ng/mL Troponin I (0.000-0.034) ng/mL Total Protein (6.3-8.2) g/dL Albumin (3.5-5.0) g/dL Urine Color Urine Appearance (Clear) Urine pH (5.0-8.0) Ur Specific [place] (1.001-1.035) Urine Protein (Negative) Urine Glucose (UA) (Negative) Urine Ketones (Negative) Urine Blood (Negative) Urine Nitrite (Negative) Urine Bilirubin (Negative) Urine Urobilinogen (<2.0) mg/dL Ur Leukocyte Esterase (Negative) Salicylates mg/dL Urine Opiates Screen Not Detected (NotDetected) Ur Oxycodone Screen Not Detected (NotDetected) Urine Methadone Screen Not Detected (NotDetected) Ur Propoxyphene Screen Not Detected (NotDetected) Acetaminophen ug/mL Ur Barbiturates Screen Not Detected (NotDetected) U Tricyclic Antidepress Detected H (NotDetected) Ur Phencyclidine Scrn Not Detected (NotDetected) Ur Amphetamines Screen Not Detected (NotDetected) U Methamphetamines Scrn Not Detected (NotDetected) U Benzodiazepines Scrn Not Detected (NotDetected) Urine Cocaine Screen Not Detected (NotDetected) U Marijuana (THC) Screen Detected H (NotDetected) - EKG Data -: EKG Interpreted by Me (EKG is sinus tachycardia 122 MO 144 QRS 92 QTC 467) Disposition Clinical Impression: Altered mental status, Depression, Bipolar disorder, unspecified, Polysubstance (including opioids) dependence, daily use, Drug overdose Disposition: ADMITTED IP TO THIS HOSP Condition: Serious Is patient prescribed a controlled substance at d/c from ED?: No
[2021-02-28 22:13] LABS: HCT 42.5 % (39.0-53.0); HGB 14.5 gm/dL (13.0-17.5); MCH 33.7 pg (25.0-35.0); MCHC 34.2 g/dL (31.0-37.0); MCV 98.5 fL (80.0-100.0); Mean Platelet Volume 7.5; Platelet Count 248 k/uL (150-450); RBC 4.32 m/uL (4.30-5.90); RDW 13.6 % (11.5-15.5); WBC 8.2 k/uL (3.8-10.6)
[2021-02-28 22:22] LABS: ALT 94 U/L (4-49); AST 96 U/L (17-59); Acetaminophen <10.0 ug/mL; African American GFR (CKD) >90 (>60 ml/min/1.73 sqM); Albumin 4.3 g/dL (3.5-5.0); Alkaline Phosphatase 78 U/L (38-126); Anion Gap 10 mmol/L; Blood Urea Nitrogen 16 mg/dL (9-20); Calcium 9.4 mg/dL (8.4-10.2); Carbon Dioxide 22 mmol/L (22-30); Chloride 106 mmol/L (98-107); Creatine Kinase 83 U/L (55-170); Glucose 102 mg/dL (74-99); Non-African American GFR(CKD) >90 (>60 ml/min/1.73 sqM); Phosphorus 3.2 mg/dL (2.5-4.5); Potassium 4.3 mmol/L (3.5-5.1); Salicylate <1.0 mg/dL; Sodium 138 mmol/L (137-145); Total Bilirubin 0.7 mg/dL (0.2-1.3); Total Protein 7.3 g/dL (6.3-8.2)
[2021-02-28 22:28] LABS: Partial Thromboplastin Time 22.9 sec (22.0-30.0); Prothrombin Time 10.6 sec (9.0-12.0)
[2021-02-28 22:29] LABS: Appearance,Urine Clear (Clear); Bilirubin,Urine Negative (Negative); Blood,Urine Negative (Negative); Color,Urine Yellow; Glucose,Urine (UA) Negative (Negative); Ketones,Urine Negative (Negative); Leukocyte Esterase,Urine Negative (Negative); Nitrite,Urine Negative (Negative); Protein,Urine Negative (Negative); Specific Gravity,Urine 1.014 (1.001-1.035); Urobilinogen,Urine <2.0 mg/dL (<2.0)
[2021-02-28 22:37] LABS: Creatine Kinase MB 2.4 ng/mL (0.0-2.4); Troponin I <0.012 ng/mL (0.000-0.034)
[2021-02-28 22:40] LABS: Lymphocytes # (M) 2.71 k/uL (1.0-4.8); Monocytes # (M) 1.64 k/uL (0-1.0); Neutrophils # (M) 3.85 k/uL (1.3-7.7); Neutrophils % (M) 47 %; Nucleated Red Blood Cells 0 /100 WBC (0-0); Total Cells Counted 100
[2021-02-28 22:42] LABS: Amphetamine Screen,Urine Not Detected (NotDetected); Barbiturate Screen,Urine Not Detected (NotDetected); Benzodiazepines Screen,Urine Not Detected (NotDetected); Cocaine Screen,Urine Not Detected (NotDetected); Methadone Screen, Urine Not Detected (NotDetected); Opiate Screen,Urine Not Detected (NotDetected); Oxycodone Screen, Urine Not Detected (NotDetected); Phencyclidine Screen,Urine Not Detected (NotDetected); Tricyclic Antidepressant,Urine Detected (NotDetected); Urn Cannabinoid Scrn Detected (NotDetected)
[2021-03-01] MEDS ORDERED: NALOXONE 0.4 MG/ML 1 ML VIAL IV PRN (00:08)
[2021-03-01] MEDS ORDERED: ONDANSETRON 4 MG/2 ML VIAL IVP PRN (00:08)
[2021-03-01] MEDS: SODIUM CHLORIDE 0.9% 1,000 ML IV SCH ×3 (00:12→16:16)
--- NOTE | 2021-03-01 01:18 | P.HPIM ---
History of Present Illness H&P Date: 03/01/21 The patient is a 31-year-old male with a PMH of polysubstance abuse, asthma, and seizure disorder who was sent into the emergency room due to altered mentation. The patient was obtunded during the examination and thereby not able to provide any meaningful history. The history thereby obtained from the emergency room physician, RN, and the documentation. The patient is reportedly living at a [facility] house, had gone out to smoke a cigarette, and when he had returned, he appeared to be somewhat lethargic. He was subsequently sent to the emergency room. Review of systems: Unable to perform Physical examination: General: non toxic, no distress, appears at stated age, normal weight Derm: no unusual rashes/lesions no unusual ecchymoses, warm, dry Head: atraumatic, normocephalic, symmetric Eyes: sclera, pupils equal round reactive to light ENT: Nose and ears atraumatic, no thrush, no pharyngeal erythema Neck: No thyromegaly, no cervical lymphadenopathy, trachea midline, supple Mouth: no lip lesion, mucus membranes moist Cardiovascular: S1S2 reg, no murmur, positive posterior tibial pulse bilateral, no edema, capillary refill less than 2 seconds Lungs: CTA bilateral, no rhonchi, no rales , no accessory muscle use Abdominal: soft, nontender to palpation, no guarding, no appreciable organomegaly, normal bowel sounds Ext: no gross muscle atrophy, moving all extremities Neuro: Unable to assess, as patient not following directions Psych: Obtunded, arousable to tactile stimuli Assessment/plan Altered mental status, unclear etiology -May be related to substance abuse as patient has an extensive history -Urine toxicology reviewed -Continue to monitor for now -Neurochecks -Fall, aspiration, seizure precautions Abnormal LFTs -May be due to polysubstance abuse -Monitor for now Chronic conditions: Seizure disorder -Continue Depakote DVT prophylaxis -Heparin subq The patient is admitted with an anticipated less than 2 midnight stay for evaluation of altered mental status. CODE STATUS: Full code Anticipated discharge date: In a.m. Anticipated discharge place: [facility] Past Medical History Past Medical History: Asthma, Seizure Disorder Additional Past Medical History / Comment(s): back pain, History of Any Multi-Drug Resistant Organisms: None Reported Past Surgical History: Adenoidectomy, Tonsillectomy Additional Past Anesthesia/Blood Transfusion Reaction / Comment(s): No transfusion history Past Psychological History: ADD/ADHD, Anxiety, Bipolar, Depression, PTSD Smoking Status: Current every day smoker Past Alcohol Use History: Occasional Past Drug Use History: Methamphetamine - Past Family History Father Family Medical History: Unable to Obtain (Patient obtunded, unable to obtain) Medications and Allergies Home Medications Medication Instructions Recorded Confirmed Type Divalproex [Depakote] 500 mg PO DAILY 30 Days tablet.dr 08/25/20 02/28/21 Rx Venlafaxine HCl ER [Effexor XR] 225 mg PO DAILY 30 Days cap.er.24h 08/25/20 02/28/21 Rx Benztropine Mesylate [Cogentin] 1 mg PO BID 02/28/21 02/28/21 History Divalproex [Depakote] 750 mg PO HS 02/28/21 02/28/21 History [place] Carbonate 300 mg PO BID 02/28/21 02/28/21 History QUEtiapine [SEROquel] 100 mg PO DAILY 02/28/21 02/28/21 History QUEtiapine [SEROquel] 400 mg PO HS 02/28/21 02/28/21 History Venlafaxine HCl [Effexor XR] 37.5 mg PO DAILY 02/28/21 02/28/21 History cloNIDine HCL 0.1 mg PO HS 02/28/21 02/28/21 History Allergies Allergy/AdvReac Type Severity Reaction Status Date / Time Penicillins Allergy FAMILY Verified 02/28/21 22:10 HISTORY Physical Exam Vitals: Vital Signs Temp Pulse Resp BP Pulse Ox 02/28/21 23:45 98.8 F 87 18 110/74 92 L 02/28/21 23:15 79 17 111/66 95 02/28/21 22:45 85 16 101/61 95 02/28/21 22:15 102 H 14 111/68 95 02/28/21 22:00 108 H 14 109/81 95 02/28/21 21:45 112 H 14 127/84 95 02/28/21 21:30 99.1 F 121 H 12 127/84 95 02/28/21 21:27 94 L Intake and Output 02/28/21 02/28/21 03/01/21 14:59 22:59 06:59 Other: Weight 81.647 kg Results CBC & Chem 7: 02/28/21 21:49 02/28/21 21:49 Labs: Abnormal Lab Results - Last 24 Hours (Table) 02/28/21 02/28/21 02/28/21 Range/Units 21:49 21:49 22:13 Monocytes # (Manual) 1.64 H (0-1.0) k/uL Glucose 102 H (74-99) mg/dL AST 96 H (17-59) U/L ALT 94 H (4-49) U/L U Tricyclic Antidepress Detected H (NotDetected) U Marijuana (THC) Screen Detected H (NotDetected)
[2021-03-01] MEDS ORDERED: LORazepam 2 MG/ML INJ IV PRN (01:47)
[2021-03-01] MEDS: HEPARIN SODIUM,PORCINE/PF 5,000 UNIT/0.5 ML SYRINGE SQ SCH ×3 (08:08→23:59)
[2021-03-01] MEDS: DIVALPROEX 500 MG TABLET.DR PO SCH (08:08)
[2021-03-01 09:35] LABS: African American GFR (CKD) 143.7 (60.0-200.0); Albumin 3.5 g/dL (3.80-4.90); Albumin/Globulin Ratio 1.4 (1.60-3.17); Anion Gap 4.4 mmol/L (4.00-12.00); BUN/Creat Ratio 18.57 Ratio (12.00-20.00); Calcium 8.3 mg/dL (8.7-10.3); Carbon Dioxide 22.6 mmol/L (21.6-31.8); Globulin 2.5 g/dL (1.6-3.3); Potassium 4.5 mmol/L (3.5-5.5); Total Bilirubin 0.6 mg/dL (0.2-1.2)
--- NOTE | 2021-03-01 13:49 | P.CN ---
Psychiatric Consult - . Consult date: 03/01/21 Consult:: 03/01/21 13:49 IDENTIFYING DATA: This patient is a single, unemployed, 31-year-old male, who was recently released from [facility] and has been staying in a [facility]- [facility] house who was admitted for altered mental status. HISTORY OF PRESENT ILLNESS: The patient presented to the hospital on 02/28/2021, brought in by EMS after the staff at the [facility] noted that the patient was quite altered and delirious. Collateral information was provided by the patient's mother with permission granted by the patient. The patient's mother states that the patient met up with his girlfriend earlier in the day and the patient did admit to using. He states that he took one of her "Lyrica." He also informed this provider that he did ingest a number Kratoms. His mother states that she met up with him to drive him back to the house as he has a curfew at 6 PM. She notes that while she was with him, he was quite paranoid believing that were following him and that the police were were watching him constantly. Upon arrival at the house, stuffs concerned for him being altered and notified EMS services. Currently, the patient is quite delirious. He is alert and oriented to self only. He does admit to auditory hallucinations but is unable to identify the content of what is said to him. He denies any visual hallucinations. He currently reports no paranoia or delusions. He is not reporting any suicidal or homicidal ideation, intention, and/or plan. The patient's mother reports that he was doing quite well when he was on his medications and leaving [facility]. PAST PSYCHIATRIC HISTORY: Patient has a history of bipolar disorder and psychostimulant dependence. The patient's home medication regimen included Seroquel, Effexor, lithium, Depakote, clonidine, and Cogentin. The patient has had numerous inpatient psychiatric hospitalizations, including 2 this year on [facility]. He has had also other stays at [facility] and [facility]. Patient is open with [facility]. The Patient has numerous suicide attempts in the past. PAST MEDICAL HISTORY: Past Medical History: Asthma, Seizure Disorder Additional Past Medical History / Comment(s): back pain, History of Any Multi-Drug Resistant Organisms: None Reported Past Surgical History: Adenoidectomy, Tonsillectomy Additional Past Anesthesia/Blood Transfusion Reaction / Comment(s): No transfusion history Past Psychological History: ADD/ADHD, Anxiety, Bipolar, Depression, PTSD Smoking Status: Current every day smoker Past Alcohol Use History: Occasional Past Drug Use History: Methamphetamine ALLERGIES: Penicillins CHEMICAL DEPENDENCY HISTORY: The patient has a significant history of polysubstance abuse. He remains guarded as to what he he is prior to this admission, but does admit that he did take Kratoms and possibly lyrica. FAMILY PSYCHIATRIC/SUBSTANCE USE HISTORY: The patient reports a family history of bipolar disorder. He reports heavy use of alcohol and cocaine on both sides of his family. SOCIAL HISTORY: Patient was born and raised in [place], [place]. He was most recently incarcerated for a year for the conviction of a third degree home invasion. He was staying in a three-quarter house prior to this admission. MENTAL STATUS EXAM: General Appearance: Patient appears to be stated age. He has mulitple tattoos and appears malaised. Behavior: Patient is calmly lying in bed without any agitated behavior. Eye contact is intense. Speech: Patient's speech is fluent and nonpressured. Nonspontaneous. Mood/Affect: Patient reports their mood is "I don't know", affect is malaised. Suicidality/Homicidality: Patient denies having any suicidal or homicidal ideation intent or plan. Perceptions: Patient admits to auditory hallucinations but no visual. Though content/process: There is no evidence of any delusional thought content and thought process is confused and disoriented. Memory and concentration: alert and oriented to person only. Concentration is poor. Judgment and insight: Very poor Vital Signs Temp 98.1 F 03/01/21 12:17 Pulse 78 03/01/21 12:17 Resp 21 03/01/21 12:17 BP 112/61 03/01/21 12:17 Pulse Ox 99 03/01/21 12:17 Intake & Output 02/28/21 03/01/21 03/01/21 18:59 06:59 18:59 Intake Total 0 Balance 0 Weight 81.647 kg 81.647 kg Intake: Oral 0 Other: # Voids 0 IMPRESSIONS: Altered mental status - psychosis likely secondary to Kratom use Bipolar Disorder, Type 1 Polysubstance abuse PLAN: -At this time patient DOES NOT meet criteria for inpatient psychiatric admission. Currently, the patient is presenting as delirious and altered due to acute intoxication with kratom and other drugs and not from an organic psychiatric illness. -Patient DOES NOT have decision making capacity at this time and is unable to reason through and communicate/appreciate the risks, benefits and alternatives to treatment. -Delirium precautions recommended with patient including - avoiding use of n arcotics and [employer] sedatives, limit anticholinergic medications when possible, frequent re-orientation, minimize use of restraints, open window shades during the day and close them at night -Would recommend the following medication changes/additions: Continue Depakote 500 mg daily and 750 mg at bedtime for mood stabilization. Restart Seroquel 100 mg at bedtime for psychosis/mood stabilization Hold other psychotropic medications. -Will continue to follow along 03/01/21 13:49
[2021-03-01] MEDS: LORazepam 2 MG/ML INJ IV PRN ×2 (13:58→22:20)
--- NOTE | 2021-03-01 15:42 | P.PN ---
Subjective Progress Note Date: 03/01/21 Principal diagnosis: psychosis Patient is a 31-year-old past medical history of polysubstance abuse, asthma, and seizure disorder who presented to the ER with altered mentation. Patient seen and examined at bedside. He is very lethargic and appears somewhat confused. He does admit to me that he didn't do drugs yesterday. It turns out to be Kratom. He denies any nausea or vomiting. General: non toxic, no distress, appears at stated age Derm: warm, dry Head: atraumatic, normocephalic, symmetric Eyes: mydriasis, PERRL, EOMI, no lid lag, anicteric sclera Mouth: no lip lesion, mucus membranes moist Cardiovascular: S1S2 reg, no murmur, positive posterior tibial pulse bilateral, Lungs: decreased bs bilateral, no rhonchi, no rales, no accessory muscle use Abdominal: soft, nontender to palpation, no guarding, no appreciable organomegaly Ext: no gross muscle atrophy, no edema, no contractures Neuro: CN II-XI grossly intact, no focal neuro deficits Psych: lethargic, awakes to touch, oriented to self Overdose with Kratom now with psychotic features - psych recs - prn ativan for agitation - restrted on seroquel - consider zyprexa if needed Seizure disorder - conitnue depalote Increased LFT - likely due to durg use - monitor CMP in AM - down trending. bipolar disorderd - psych recs likely home in AM Objective - Vital Signs Vital signs: Vital Signs Temp 98.1 F 03/01/21 12:17 Pulse 78 03/01/21 12:17 Resp 21 03/01/21 12:17 BP 112/61 03/01/21 12:17 Pulse Ox 99 03/01/21 12:17 Intake & Output 02/28/21 03/01/21 03/01/21 18:59 06:59 18:59 Intake Total 0 Balance 0 Weight 81.647 kg 81.647 kg Intake: Oral 0 Other: # Voids 0 - Labs CBC & Chem 7: 02/28/21 21:49 03/01/21 05:00 Labs: Abnormal Lab Results - Last 24 Hours (Table) 02/28/21 02/28/21 02/28/21 Range/Units 21:49 21:49 22:13 Monocytes # (Manual) 1.64 H (0-1.0) k/uL Chloride (96-109) mmol/L Glucose 102 H (74-99) mg/dL Calcium (8.7-10.3) mg/dL AST 96 H (17-59) U/L ALT 94 H (4-49) U/L Total Protein (6.2-8.2) g/dL Albumin (3.80-4.90) g/dL Albumin/Globulin Ratio (1.60-3.17) g/dL U Tricyclic Antidepress Detected H (NotDetected) U Marijuana (THC) Screen Detected H (NotDetected) 03/01/21 Range/Units 05:00 Monocytes # (Manual) (0-1.0) k/uL Chloride 112 H (96-109) mmol/L Glucose (74-99) mg/dL Calcium 8.3 L (8.7-10.3) mg/dL AST 84 H (17-59) U/L ALT 83 H (4-49) U/L Total Protein 6.0 L (6.2-8.2) g/dL Albumin 3.50 L (3.80-4.90) g/dL Albumin/Globulin Ratio 1.40 L (1.60-3.17) g/dL U Tricyclic Antidepress (NotDetected) U Marijuana (THC) Screen (NotDetected)
[2021-03-01] MEDS: DIVALPROEX 250 MG TABLET.DR PO SCH (20:10)
[2021-03-01] MEDS ORDERED: QUEtiapine 100 MG TAB PO SCH (21:00)
[2021-03-02] MEDS: SODIUM CHLORIDE 0.9% 1,000 ML IV SCH ×3 (00:57→09:04)
[2021-03-02 06:25] LABS: HCT 40.8 % (39.0-53.0); MCH 34.7 pg (25.0-35.0); MCHC 34.4 g/dL (31.0-37.0); MCV 100.8 fL (80.0-100.0); Macrocytosis Slight; Mean Platelet Volume 7.8; Platelet Count 181 k/uL (150-450); RBC 4.04 m/uL (4.30-5.90); RDW 13.5 % (11.5-15.5); WBC 5.5 k/uL (3.8-10.6)
[2021-03-02] MEDS: HEPARIN SODIUM,PORCINE/PF 5,000 UNIT/0.5 ML SYRINGE SQ SCH ×2 (07:45→15:17)
[2021-03-02] MEDS: DIVALPROEX 500 MG TABLET.DR PO SCH (07:45)
[2021-03-02 10:10] LABS: Eosinophils # (M) 0.17 k/uL (0-0.7); Lymphocytes # (M) 2.42 k/uL (1.0-4.8); Monocytes # (M) 0.77 k/uL (0-1.0); Neutrophils # (M) 2.15 k/uL (1.3-7.7); Neutrophils % (M) 39 %; Nucleated Red Blood Cells 0 /100 WBC (0-0); Total Cells Counted 100
[2021-03-02 10:13] LABS: Reactive Lymphocytes Present
[2021-03-02 10:57] LABS: Albumin 3.7 g/dL (3.80-4.90); Albumin/Globulin Ratio 1.54 (1.60-3.17); Anion Gap 7.2 mmol/L (4.00-12.00); BUN/Creat Ratio 16.25 Ratio (12.00-20.00); Calcium 8.6 mg/dL (8.7-10.3); Carbon Dioxide 25.8 mmol/L (21.6-31.8); Globulin 2.4 g/dL (1.6-3.3); Magnesium 2.1 mg/dL (1.5-2.4); Non-African American GFR(CKD) 117.4 (60.0-200.0); Phosphorus 3.6 mg/dL (2.4-5.1); Potassium 3.9 mmol/L (3.5-5.5); Total Bilirubin 0.5 mg/dL (0.3-1.2); Total Protein 6.1 g/dL (6.2-8.2)
--- NOTE | 2021-03-02 11:05 | P.PN ---
Subjective Progress Note Date: 03/02/21 Patient was seen and evaluated by me today. He was lethargic but easily arousable. He is oriented to himself and to the place. He appeared very shaky when I saw him. Objective - Vital Signs Vital signs: Vital Signs Temp 97.5 F L 03/02/21 04:35 Pulse 61 03/02/21 04:35 Resp 20 03/02/21 04:35 BP 117/75 03/02/21 04:35 Pulse Ox 95 03/02/21 04:35 Intake & Output 03/01/21 03/02/21 03/02/21 18:59 06:59 18:59 Intake Total 1235 100 240 Balance 1235 100 240 Weight 81.647 kg Intake: Intake, IV Titration 1235 Amount Sodium Chloride 0.9% 1, 1235 000 ml @ 130 mls/hr IV . Q7H42M [facility] Rx#:[id number] Oral 100 240 Other: # Voids 1 1 1 - Exam General: The patient is awake and alert, in no distress Eye: there is normal conjunctiva bilaterally. Neck: The neck is supple, there is no JVD. Cardiovascular: Normal S1-S2, no S3-S4, no murmurs. Respiratory: Lungs clear to auscultation bilaterally Gastrointestinal: Abdomen is soft, nontender Musculoskeletal: There is no pedal edema. Neurological:. Speech is normal. Skin: Skin is warm and dry - Labs CBC & Chem 7: 03/02/21 05:23 03/02/21 05:23 Labs: Abnormal Lab Results - Last 24 Hours (Table) 03/02/21 03/02/21 Range/Units 05:23 05:23 RBC 4.04 L (4.30-5.90) m/uL MCV 100.8 H (80.0-100.0) fL Chloride 110 H (96-109) mmol/L Calcium 8.6 L (8.7-10.3) mg/dL AST 77 H (14-35) U/L ALT 81 H (10-49) U/L Total Protein 6.1 L (6.2-8.2) g/dL Albumin 3.70 L (3.80-4.90) g/dL Albumin/Globulin Ratio 1.54 L (1.60-3.17) g/dL Assessment and Plan Assessment: Patient is a 31-year-old past medical history of polysubstance abuse, asthma, and seizure disorder who presented to the ER with altered mentation. Overdose with Kratom with psychotic features, improving - psych recs appreciated -Continue Depakote 500 mg daily and 700 mg at bedtime for mood stabilization, Se roquel 100 mg at bedtime - prn ativan for agitation Seizure disorder - conitnue depalote Increased LFT - likely due to durg use - down trending. bipolar disorderd Patient received aggressive IV fluid hydration since admission. We encouraged ambulation. His mentation is still not the best. We will continue to monitor and anticipate discharge home tomorrow. Awaiting psych follow-up.
--- NOTE | 2021-03-02 12:47 | P.PN ---
Progress Note - Text Progress Note Date: 03/02/21 Interval History: Patient was seen resting in bed with his mother (Nely) and sister present. He is agreeable to speak with this provider with them present and allows them to provide collateral information. Patient is currently more oriented. He is oriented to person, place and year but not to month. He is currently denying any suicidal or homicidal ideation, intention, and/or plan. He reports no auditory or visual hallucinations. He occasionally responds to questioning bizarrrely. When asked about paranoia, the patient responded, "No I have socks." When asked to explain, the patient was unable to. Patient's mother expresses concern that the patient is impressionable by his girlfriend who gave the patient the drugs/meds to use. His mother informs this provider he reportedly took 5-6 latuda tablets from his girlfriend. He remains primarily somnolent today. Mental Status Exam: General Appearance: Patient appears to be stated age is somnolent, directable, and cooperative. Behavior: Patient is calmly lying down in bed without any agitated behavior. Speech: Patient's speech is fluent and nonpressured. Mood/Affect: Mood is "feeling okay," affect is congruent and flat. Suicidality/Homicidality: Patient denies having any suicidal or homicidal ideation intent or plan. Perceptions: Patient denies any visual hallucinations and denies any auditory hallucinations Though content/process: There is no evidence of any delusional thought content and thought process is linear and goal-directed. Some bizarre responses to questioning. Loose associations. Memory and concentration: AOX3, grossly intact for the purposes of this session Judgment and insight: Improving mildly Vital Signs Temp 98.2 F 03/02/21 12:11 Pulse 76 03/02/21 12:11 Resp 18 03/02/21 12:11 BP 118/73 03/02/21 12:11 Pulse Ox 98 03/02/21 12:11 Intake & Output 03/01/21 03/02/21 03/02/21 18:59 06:59 18:59 Intake Total 1235 100 240 Balance 1235 100 240 Weight 81.647 kg Intake: Intake, IV Titration 1235 Amount Sodium Chloride 0.9% 1, 1235 000 ml @ 130 mls/hr IV . Q7H42M [facility] Rx#:[id number] Oral 100 240 Other: # Voids 1 1 1 Laboratory Results - Last 24 Hours 03/02/21 03/02/21 05:23 05:23 WBC 5.5 RBC 4.04 L Hgb 14.0 Hct 40.8 MCV 100.8 H MCH 34.7 MCHC 34.4 RDW 13.5 Plt Count 181 MPV 7.8 Neutrophils % (Manual) 39 Lymphocytes % (Manual) 44 Monocytes % (Manual) 14 Eosinophils % (Manual) 3 Neutrophils # (Manual) 2.15 Lymphocytes # (Manual) 2.42 Monocytes # (Manual) 0.77 Eosinophils # (Manual) 0.17 Nucleated RBCs 0 Reactive Lymphocytes Present Macrocytosis Slight Sodium 143 Potassium 3.9 Chloride 110 H Carbon Dioxide 25.8 Anion Gap 7.20 BUN 13.0 Creatinine 0.8 Est GFR (CKD-EPI)AfAm 136.0 Est GFR (CKD-EPI)NonAf 117.4 BUN/Creatinine Ratio 16.25 Glucose 94 Calcium 8.6 L Phosphorus 3.6 Magnesium 2.1 Total Bilirubin 0.5 AST 77 H ALT 81 H Alkaline Phosphatase 71 Total Protein 6.1 L Albumin 3.70 L Globulin 2.4 Albumin/Globulin Ratio 1.54 L Assessment Altered mental status - psychosis likely secondary to Kratom use and other psychoactive medications/drugs. Bipolar Disorder, Type 1 Polysubstance abuse Plan: -At this time patient DOES NOT meet criteria for inpatient psychiatric admission. Patient is displaying gradual improvement and does not endorse any imminent risk of harm to self or others. He does not appear to be responding to internal stimuli or endorsing any thoughts of self harm. -Patient DOES NOT have decision making capacity at this time and is unable to reason through and communicate/appreciate the risks, benefits and alternatives to treatment. 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 Increase Seroquel to 150 mg at bedtime for psychosis/mood stabilization Hold other psychotropic medications. -Will continue to follow along.
[2021-03-02 19:50] VITALS: RESP 16
[2021-03-02] MEDS: DIVALPROEX 250 MG TABLET.DR PO SCH (20:45)
[2021-03-02] MEDS ORDERED: QUEtiapine 50 MG TAB PO SCH (21:00)
[2021-03-02] MEDS: LORazepam 2 MG/ML INJ IV PRN (21:51)
[2021-03-03] MEDS: HEPARIN SODIUM,PORCINE/PF 5,000 UNIT/0.5 ML SYRINGE SQ SCH ×2 (03:07→07:30)
[2021-03-03] MEDS: DIVALPROEX 500 MG TABLET.DR PO SCH (07:30)
[2021-03-03 11:35] VITALS: BP 139/73; PULSE 78; TEMP 97.6
--- NOTE | 2021-03-03 13:04 | P.PN ---
Progress Note - Text Progress Note Date: 03/03/21 Interval History: Patient was seen resting in bed. Patient is currently not reporting any significant issue at this time. He is not reporting any auditory or visual hallucinations. He denies any paranoia or other delusions. He denies any suicidal or homicidal ideation, intention, and/or plan. He reports no issues regarding his sleep or appetite. He expresses understanding when counseled on substance abuse. He is alert and oriented in all spheres currently. He has been adherent with his medications and reports no significant side effects. He has an appointment with [facility] on monday. Mental Status Exam: General Appearance: Patient appears to be stated age is somnolent, directable, and cooperative. Behavior: Patient is calmly lying down in bed without any agitated behavior. Speech: Patient's speech is fluent and nonpressured. Mood/Affect: Mood is "feeling the same," affect is congruent and blunted. Suicidality/Homicidality: Patient denies having any suicidal or homicidal ideation intent or plan. Perceptions: Patient denies any visual hallucinations and denies any auditory hallucinations Though content/process: There is no evidence of any delusional thought content and thought process is linear and goal-directed. Memory and concentration: AOX3, grossly intact for the purposes of this session Judgment and insight: Improving mildly Vital Signs Temp 97.6 F 03/03/21 11:11 Pulse 78 03/03/21 11:11 Resp 16 03/03/21 11:11 BP 139/73 03/03/21 11:11 Pulse Ox 96 03/03/21 11:11 Intake & Output 03/02/21 03/03/21 03/03/21 18:59 06:59 18:59 Intake Total 3820 Balance 3820 Intake: Intake, IV Titration 650 Amount Sodium Chloride 0.9% 1, 650 000 ml @ 130 mls/hr IV . Q7H42M [facility] Rx#:[id number] Oral 3170 Other: Voiding Method Toilet # Voids 2 2 Assessment Altered mental status - psychosis likely secondary to Kratom use and other psychoactive medications/drugs. Bipolar Disorder, Type 1 Polysubstance abuse Plan: -At this time patient DOES NOT meet criteria for inpatient psychiatric admission. Patient is displaying gradual improvement and does not endorse any imminent risk of harm to self or others. He does not appear to be responding to internal stimuli or endorsing any thoughts of self harm. -Delirium precautions recommended with patient including - avoiding use of narcotics and DEAF INTERPRETER sedatives, limit anticholinergic medications when possible, frequent re-orientation, minimize use of restraints, open window shades during the day and close them at night -Would recommend the following medication changes/additions: Continue Depakote 500 mg daily and 750 mg at bedtime for mood stabilization. Continue Seroquel to 150 mg at bedtime for psychosis/mood stabilization -Recommend outpatient follow-up with [facility]. Patient is scheduled for an appointment on monday. -Patient is cleared psychiatrically for discharge. We will sign off at this time. Please call or reconsult us if any questions or if necessary.
--- NOTE | 2021-03-03 16:39 | P.DS ---
Providers Date of admission: 03/01/21 00:08 Expected date of discharge: 03/03/21 Attending physician: Pilo Whelan MD Consults: 03/01/21 00:08 Consult Physician Routine Consulting Provider: Eber Fernández Consult Reason/Comments: psych Do you want consulting provider notified?: Yes Primary care physician: Stated None Hospital Course: Patient is a 31-year-old past medical history of polysubstance abuse, asthma, and seizure disorder who presented to the ER with altered mentation. Overdose with Kratom with psychotic features, improving - psych recs appreciated -Continue Depakote 500 mg daily and 700 mg at bedtime for mood stabilization, Seroquel 100 mg at bedtime - Patient is scheduled to follow-up with mental health on Monday Seizure disorder - conitnue depalote Increased LFT - likely due to durg use - down trending. bipolar disorderd Patient was seen, evaluated, and examined by me on the day of discharge General: The patient is awake and alert, in no distress Eye: there is normal conjunctiva bilaterally. Neck: The neck is supple, there is no JVD. Cardiovascular: Normal S1-S2, no S3-S4, no murmurs. Respiratory: Lungs clear to auscultation bilaterally Gastrointestinal: Abdomen is soft, nontender Musculoskeletal: There is no pedal edema. Neurological:. Speech is normal. Skin: Skin is warm and dry Patient will be discharged in a stable condition. His mother will pick him up. He will be discharged to a [facility] as planned. Patient Condition at Discharge: Serious Plan - Discharge Summary Discharge Rx Participant: No New Discharge Prescriptions: New QUEtiapine [SEROquel] 150 mg PO HS #30 tab Continue Divalproex [Depakote] 500 mg PO DAILY 30 Days tablet. Divalproex [Depakote] 750 mg PO HS Discontinued Venlafaxine HCl ER [Effexor XR] 225 mg PO DAILY 30 Days cap.er.24h Venlafaxine HCl [Effexor XR] 37.5 mg PO DAILY Benztropine Mesylate [Cogentin] 1 mg PO BID QUEtiapine [SEROquel] 100 mg PO DAILY QUEtiapine [SEROquel] 400 mg PO HS [place] Carbonate 300 mg PO BID cloNIDine HCL 0.1 mg PO HS Discharge Medication List Divalproex [Depakote] 500 mg PO DAILY 30 Days tablet. 08/25/20 [Rx] Divalproex [Depakote] 750 mg PO HS 02/28/21 [History] QUEtiapine [SEROquel] 150 mg PO HS #30 tab 03/03/21 [Rx] Follow up Appointment(s)/Referral(s): None,Stated [Primary Care Provider] - 1-2 days Patient Instructions/Handouts: Quetiapine (By mouth), Bipolar Disorder (DC), Depression (DC), Polysubstance Abuse (ED), Altered Mental Status (ED) Activity/Diet/Wound Care/Special Instructions: [facility] for scheduled appointment Discharge Disposition: HOME SELF-CARE
== END 2021-03-03 13:22 | disposition home or self-care (01) ==
LOC: EC 21:23 → 5NMEDONC 03-01 00:08
PROVIDERS: ADMIT Internal Medicine; ATTEND Internal Medicine
DX: T50.991A Poisoning by other drugs, medicaments and biological substances, accidental (unintentional), initial encounter (principal); F09 Unspecified mental disorder due to known physiological condition; F11.20 Opioid dependence, uncomplicated; F19.20 Other psychoactive substance dependence, uncomplicated; G40.909 Epilepsy, unspecified, not intractable, without status epilepticus; J45.909 Unspecified asthma, uncomplicated; F31.9 Bipolar disorder, unspecified; F43.10 Post-traumatic stress disorder, unspecified; F90.9 Attention-deficit hyperactivity disorder, unspecified type; F41.9 Anxiety disorder, unspecified; F17.210 Nicotine dependence, cigarettes, uncomplicated; R94.5 Abnormal results of liver function studies; M54.9 Dorsalgia, unspecified; Z79.899 Other long term (current) drug therapy; Z88.0 Allergy status to penicillin; Z98.890 Other specified postprocedural states
CPT/HCPCS: 96376 ×2; 96361 ×4; 96372 ×3; 96374; 96375; 99285; 36415; 93005; 80164; 80053 ×3; 82550; 82553; 83605; 83735 ×2; 84100 ×2; 84484; 85025 ×2; 85610; 85730; 81003; 80306; 80143; 80179; G0378 ×3; G0480; J2060 ×3; J2405; J1644 ×3; 80320

== ENCOUNTER 2021-03-04 17:20 | Observation (INO) | payer OTHER ==
[2021-03-04] MEDS ORDERED: LORazepam 2 MG/ML INJ IV STA (17:58)
[2021-03-04] MEDS ORDERED: SODIUM CHLORIDE 0.9% 1,000 ML IV ONE (17:58)
--- NOTE | 2021-03-04 18:03 | ED ---
General Adult HPI - General Chief complaint: Recheck/Abnormal Lab/Rx Stated complaint: revisit - med changes, shaking Source: patient, RN notes reviewed, old records reviewed Mode of arrival: ambulatory Limitations: no limitations - History of Present Illness Initial comments: 31-year-old male alert and oriented 2, unsure of the date, presents to the emergency room with complaints of withdrawal-like symptoms. Patient is tremulous and diaphoretic, states he was discharged from the hospital yesterday and they are weaning him off of his medications. He states that he did not take his medications today. He states that he did take 2 Kratom [id number] pills to help with withdrawal symptoms because they help him chill out. Patient states he does not remember the medications that he supposed to be taking. He denies any nausea vomiting or diarrhea. States he did have a bowel movement today. -: days(s) (1) Consistency: constant Improves with: none Worsens with: none Associated Symptoms: diaphoresis, other (Generalized tremors) Treatments Prior to Arrival: none - Related Data Home Medications Medication Instructions Recorded Confirmed Divalproex [Depakote] 750 mg PO HS 02/28/21 03/04/21 Previous Rx's Medication Instructions Recorded Divalproex [Depakote] 500 mg PO DAILY 30 Days tablet. 08/25/20 QUEtiapine [SEROquel] 150 mg PO HS #30 tab 03/03/21 Allergies Allergy/AdvReac Type Severity Reaction Status Date / Time Penicillins Allergy FAMILY Verified 03/04/21 17:55 HISTORY Review of Systems ROS Statement: Those systems with pertinent positive or pertinent negative responses have been documented in the HPI. ROS Other: All systems not noted in ROS Statement are negative. Past Medical History Past Medical History: Asthma, Seizure Disorder Additional Past Medical History / Comment(s): back pain, History of Any Multi-Drug Resistant Organisms: None Reported Past Surgical History: Adenoidectomy, Tonsillectomy Additional Past Anesthesia/Blood Transfusion Reaction / Comment(s): No transfusion history Past Psychological History: ADD/ADHD, Anxiety, Bipolar, Depression, PTSD Smoking Status: Current every day smoker Past Alcohol Use History: Occasional Past Drug Use History: Methamphetamine - Past Family History Father Family Medical History: Unable to Obtain General Exam Limitations: no limitations, altered mental status General appearance: alert, other (Tremulous and diaphoretic) Head exam: Present: atraumatic, normocephalic, normal inspection Eye exam: Present: normal appearance, PERRL, EOMI. Absent: scleral icterus, conjunctival injection, periorbital swelling Pupils: Present: normal accommodation ENT exam: Present: normal exam, normal oropharynx, mucous membranes moist Neck exam: Present: normal inspection, full ROM. Absent: tenderness, meningismus, lymphadenopathy, thyromegaly Respiratory exam: Present: normal lung sounds bilaterally. Absent: respiratory distress, wheezes, rales, rhonchi, stridor, chest wall tenderness, accessory muscle use, decreased breath sounds Cardiovascular Exam: Present: regular rate, normal rhythm, normal heart sounds. Absent: systolic murmur, diastolic murmur, rubs, gallop, clicks, JVD GI/Abdominal exam: Present: soft, distended, normal bowel sounds. Absent: tenderness, guarding, rebound, rigid, mass Extremities exam: Present: normal inspection, full ROM, normal capillary refill. Absent: tenderness, pedal edema, joint swelling, calf tenderness Back exam: Present: normal inspection, full ROM. Absent: tenderness, CVA tenderness (R), CVA tenderness (L), muscle spasm, paraspinal tenderness, vertebral tenderness Neurological exam: Present: alert, oriented X3, CN II-XII intact, other (Upper extremity tremors) Expanded Patient oriented to: Present: person, place Speech: Present: fluid speech Cranial nerves: EOM's Intact: Normal, Gag Reflex: Normal, Tongue Deviation: Normal Cerebellar function: Finger to Nose: Normal, Heel to Aaron: Normal Eye Response: (4) open spontaneously Motor Response: (6) obeys commands Verbal Response: (5) oriented [place] Total: 15 Psychiatric exam: Present: normal affect, normal mood Skin exam: Present: warm, diaphoretic. Absent: cyanosis, erythema, petechiae, pallor, mottled Course Vital Signs 03/04/21 03/04/21 03/04/21 17:21 18:58 21:00 Temperature 98.0 F Pulse Rate 91 92 88 Respiratory 16 18 16 Rate Blood Pressure 150/91 122/84 122/85 O2 Sat by Pulse 99 98 97 Oximetry EKG Findings - EKG Results: EKG: sinus rhythm (Ventricular rate of 87, [place] interval 0.150, QRS of 0.98, QTc of 0.474) Medical Decision Making - Medical Decision Making Valproic acid is 77.3, lithium is less than 0.2, alcohol is negative. Troponin is negative at 0.012 and EKG shows normal sinus rhythm with no ST elevation. X- ray of the abdomen shows a large amount of stool with no evidence of bowel obstruction. Chest x-rays shows heart normal size no pneumothorax or pleural effusion. There is a patchy opacities in the right lower lobe suggestive of pneumonia treated with one gram of Rocephin. CT brain is negative for intracranial hemorrhage. There is no mass or midline shift. Patient will be admitted to the hospital for withdrawal symptoms associated with discontinuation of his psych medications and mental status changes with diaphoresis and tremor s. Will also monitor right lower lobe pneumonia. Case discussed with Dr. Montero - Lab Data Result diagrams: 03/04/21 18:04 03/04/21 18:04 Lab Results 03/04/21 03/04/21 03/04/21 Range/Units 18:04 18:04 18:04 WBC 13.5 H (3.8-10.6) k/uL RBC 4.72 (4.30-5.90) m/uL Hgb 15.7 (13.0-17.5) gm/dL Hct 46.3 (39.0-53.0) % MCV 98.0 (80.0-100.0) fL MCH 33.2 (25.0-35.0) pg MCHC 33.9 (31.0-37.0) g/dL RDW 13.8 (11.5-15.5) % Plt Count 244 (150-450) k/uL MPV 8.0 Neutrophils % (Manual) 63 % Lymphocytes % (Manual) 29 % Monocytes % (Manual) 8 % Neutrophils # (Manual) 8.51 H (1.3-7.7) k/uL Lymphocytes # (Manual) 3.92 (1.0-4.8) k/uL Monocytes # (Manual) 1.08 H (0-1.0) k/uL Nucleated RBCs 0 (0-0) /100 WBC Polychromasia Present Sodium 142 (137-145) mmol/L Potassium 4.0 (3.5-5.1) mmol/L Chloride 108 H (98-107) mmol/L Carbon Dioxide 21 L (22-30) mmol/L Anion Gap 13 mmol/L BUN 11 (9-20) mg/dL Creatinine 0.81 (0.66-1.25) mg/dL Est GFR (CKD-EPI)AfAm >90 (>60 ml/min/1.73 sqM) Est GFR (CKD-EPI)NonAf >90 (>60 ml/min/1.73 sqM) Glucose 107 H (74-99) mg/dL Calcium 9.5 (8.4-10.2) mg/dL Total Bilirubin 0.9 (0.2-1.3) mg/dL AST 80 H (17-59) U/L ALT 91 H (4-49) U/L Alkaline Phosphatase 85 (38-126) U/L Troponin I (0.000-0.034) ng/mL Total Protein 8.0 (6.3-8.2) g/dL Albumin 4.7 (3.5-5.0) g/dL Urine Color Yellow Urine Appearance Clear (Clear) Urine pH 6.0 (5.0-8.0) Ur Specific [place] 1.034 (1.001-1.035) Urine Protein Trace H (Negative) Urine Glucose (UA) Negative (Negative) Urine Ketones Trace H (Negative) Urine Blood Negative (Negative) Urine Nitrite Negative (Negative) Urine Bilirubin 1+ H (Negative) Urine Urobilinogen 6.0 (<2.0) mg/dL Ur Leukocyte Esterase Negative (Negative) Urine Opiates Screen Not Detected (NotDetected) Ur Oxycodone Screen Not Detected (NotDetected) Urine Methadone Screen Not Detected (NotDetected) Ur Propoxyphene Screen Not Detected (NotDetected) Ur Barbiturates Screen Not Detected (NotDetected) Valproic Acid 77.3 ug/mL U Tricyclic Antidepress Not Detected (NotDetected) Ur Phencyclidine Scrn Not Detected (NotDetected) Ur Amphetamines Screen Not Detected (NotDetected) U Methamphetamines Scrn Not Detected (NotDetected) U Benzodiazepines Scrn Detected H (NotDetected) [place] <0.2 mmol/L Urine Cocaine Screen Not Detected (NotDetected) U Marijuana (THC) Screen Detected H (NotDetected) Serum Alcohol <10 mg/dL 08/05/21 Range/Units 18:04 WBC (3.8-10.6) k/uL RBC (4.30-5.90) m/uL Hgb (13.0-17.5) gm/dL Hct (39.0-53.0) % MCV (80.0-100.0) fL MCH (25.0-35.0) pg MCHC (31.0-37.0) g/dL RDW (11.5-15.5) % Plt Count (150-450) k/uL MPV Neutrophils % (Manual) % Lymphocytes % (Manual) % Monocytes % (Manual) % Neutrophils # (Manual) (1.3-7.7) k/uL Lymphocytes # (Manual) (1.0-4.8) k/uL Monocytes # (Manual) (0-1.0) k/uL Nucleated RBCs (0-0) /100 WBC Polychromasia Sodium (137-145) mmol/L Potassium (3.5-5.1) mmol/L Chloride (98-107) mmol/L Carbon Dioxide (22-30) mmol/L Anion Gap mmol/L BUN (9-20) mg/dL Creatinine (0.66-1.25) mg/dL Est GFR (CKD-EPI)AfAm (>60 ml/min/1.73 sqM) Est GFR (CKD-EPI)NonAf (>60 ml/min/1.73 sqM) Glucose (74-99) mg/dL Calcium (8.4-10.2) mg/dL Total Bilirubin (0.2-1.3) mg/dL AST (17-59) U/L ALT (4-49) U/L Alkaline Phosphatase (38-126) U/L Troponin I <0.012 (0.000-0.034) ng/mL Total Protein (6.3-8.2) g/dL Albumin (3.5-5.0) g/dL Urine Color Urine Appearance (Clear) Urine pH (5.0-8.0) Ur Specific [place] (1.001-1.035) Urine Protein (Negative) Urine Glucose (UA) (Negative) Urine Ketones (Negative) Urine Blood (Negative) Urine Nitrite (Negative) Urine Bilirubin (Negative) Urine Urobilinogen (<2.0) mg/dL Ur Leukocyte Esterase (Negative) Urine Opiates Screen (NotDetected) Ur Oxycodone Screen (NotDetected) Urine Methadone Screen (NotDetected) Ur Propoxyphene Screen (NotDetected) Ur Barbiturates Screen (NotDetected) Valproic Acid ug/mL U Tricyclic Antidepress (NotDetected) Ur Phencyclidine Scrn (NotDetected) Ur Amphetamines Screen (NotDetected) U Methamphetamines Scrn (NotDetected) U Benzodiazepines Scrn (NotDetected) [place] mmol/L Urine Cocaine Screen (NotDetected) U Marijuana (THC) Screen (NotDetected) Serum Alcohol mg/dL Disposition Clinical Impression: Altered mental status, Pneumonia Disposition: ADMITTED IP TO THIS HOSP Condition: Fair Referrals: None,Stated [Primary Care Provider] - 1-2 days Decision Date: 03/04/21 Decision Time: 23:06
[2021-03-04 18:23] LABS: ALT 91 U/L (4-49); AST 80 U/L (17-59); African American GFR (CKD) >90 (>60 ml/min/1.73 sqM); Albumin 4.7 g/dL (3.5-5.0); Alcohol <10 mg/dL; Alkaline Phosphatase 85 U/L (38-126); Anion Gap 13 mmol/L; Blood Urea Nitrogen 11 mg/dL (9-20); Calcium 9.5 mg/dL (8.4-10.2); Carbon Dioxide 21 mmol/L (22-30); Chloride 108 mmol/L (98-107); Glucose 107 mg/dL (74-99); Lithium <0.2 mmol/L; Non-African American GFR(CKD) >90 (>60 ml/min/1.73 sqM); Sodium 142 mmol/L (137-145); Total Bilirubin 0.9 mg/dL (0.2-1.3)
[2021-03-04 18:28] LABS: Valproic Acid (Depakene) 77.3 ug/mL
[2021-03-04 18:34] LABS: HCT 46.3 % (39.0-53.0); HGB 15.7 gm/dL (13.0-17.5); MCH 33.2 pg (25.0-35.0); MCHC 33.9 g/dL (31.0-37.0); Platelet Count 244 k/uL (150-450); RBC 4.72 m/uL (4.30-5.90); RDW 13.8 % (11.5-15.5); WBC 13.5 k/uL (3.8-10.6)
[2021-03-04 19:11] LABS: Lymphocytes # (M) 3.92 k/uL (1.0-4.8); Monocytes # (M) 1.08 k/uL (0-1.0); Neutrophils # (M) 8.51 k/uL (1.3-7.7); Neutrophils % (M) 63 %; Nucleated Red Blood Cells 0 /100 WBC (0-0); Polychromasia Present; Total Cells Counted 100
[2021-03-04 19:49] LABS: Appearance,Urine Clear (Clear); Bilirubin,Urine 1+ (Negative); Blood,Urine Negative (Negative); Color,Urine Yellow; Glucose,Urine (UA) Negative (Negative); Ketones,Urine Trace (Negative); Leukocyte Esterase,Urine Negative (Negative); Nitrite,Urine Negative (Negative); Protein,Urine Trace (Negative); Specific Gravity,Urine 1.034 (1.001-1.035)
[2021-03-04 20:00] LABS: Amphetamine Screen,Urine Not Detected (NotDetected); Barbiturate Screen,Urine Not Detected (NotDetected); Benzodiazepines Screen,Urine Detected (NotDetected); Cocaine Screen,Urine Not Detected (NotDetected); Methadone Screen, Urine Not Detected (NotDetected); Opiate Screen,Urine Not Detected (NotDetected); Oxycodone Screen, Urine Not Detected (NotDetected); Phencyclidine Screen,Urine Not Detected (NotDetected); Tricyclic Antidepressant,Urine Not Detected (NotDetected); Urn Cannabinoid Scrn Detected (NotDetected)
--- NOTE | 2021-03-04 20:03 | XR ---
EXAMINATION TYPE: XR chest 2V DATE OF EXAM: 03/04/2021 COMPARISON: 06/18/2020 HISTORY: 31 years Male. STUDY INDICATION GIVEN: altered mental status . TECHNIQUE: Frontal lateral chest radiographs FINDINGS AND IMPRESSION: Patchy opacity seen in the right lower lobe suggests pneumonia. No pneumothorax or pleural effusion. The heart is normal in size. No acute osseous abnormality.
--- NOTE | 2021-03-04 20:06 | XR ---
EXAMINATION TYPE: XR KUB DATE OF EXAM: 03/04/2021 COMPARISON: 06/23/2020 HISTORY: 31 years Male. STUDY INDICATION GIVEN: distended abdomen . TECHNIQUE: Upright AP abdominal radiograph FINDINGS AND IMPRESSION: Large amount of stool with no evidence of bowel obstruction. No evidence of free abdominal air. No abnormal calcifications or evidence of organomegaly. No acute osseous abnormality. Refer to chest radiograph from the same day for dedicated findings.
--- NOTE | 2021-03-04 22:43 | CT ---
EXAMINATION TYPE: CT brain wo con DATE OF EXAM: 03/04/2021 COMPARISON: 01/24/2020 HISTORY: AMS, shaking, recent medication changes, hx seizures CT DLP: 1143.4 mGycm Automated exposure control for dose reduction was used. Ventricles have normal size. There is no mass effect nor midline shift. There is no sign of intracran ial hemorrhage. Calvarium is intact. There is normal aeration of the mastoid sinuses. IMPRESSION: Negative unenhanced head CT scan. No change.
[2021-03-04] MEDS ORDERED: ACETAMINOPHEN TAB 325 MG TAB PO PRN (23:29)
[2021-03-04] MEDS ORDERED: NALOXONE 0.4 MG/ML 1 ML VIAL IV PRN (23:29)
[2021-03-04] MEDS ORDERED: QUEtiapine 50 MG TAB PO SCH (23:45)
[2021-03-05] MEDS: SODIUM CHLORIDE 0.9% 1,000 ML IV SCH ×2 (00:32→16:57)
[2021-03-05] MEDS: DIVALPROEX 250 MG TABLET.DR PO SCH ×2 (00:34→19:30)
--- NOTE | 2021-03-05 02:17 | P.HPIM ---
History of Present Illness H&P Date: 03/05/21 Chief Complaint: Profuse sweating, tremors 31-year-old male with history of polysubstance abuse, intermittent asthma, history of seizures Patient was recently discharged from our facility on March 03 after being admitted for about 5 days secondary to overdose on kratom. Patient has history of psychosis, bipolar disorder. He was recently in skilled nursing and was released early under probation staying at residential. Has mother believes that his medications were started at skilled nursing to help calm him down and control his behavior. However he was on very high doses of medications resulting in some altered mental status for which she initially brought him in about a week ago at that time psychiatry evaluated the patient and started a plan to wean him off most of his medications. Patient was discharged on March 03 however he does leave the residential to go look for job. Patient admits that he went to smoking shop from which she got kratom, and was given of vodka shots to help him calm down. He denies any other drugs. Patient gives conflicting story about whether he is taking his current medications are now. He is currently supposed to be on Depakote and Seroquel. Patient denies any coughing shortness of breath or chest pain denies any nausea or vomiting or changes in his bowel or urinary habits. He was brought in due to profuse sweating seeming confused, he does feel warm but there is no documented fevers Blood work overall was unremarkable, chest x-ray did show some possible opacity suggestive of infiltrates however patient denies any clinical symptoms of pne umonia Review of Systems Pertinent positives as noted in HPI. All other systems were reviewed and are negative Past Medical History Past Medical History: Asthma, Seizure Disorder Additional Past Medical History / Comment(s): back pain, History of Any Multi-Drug Resistant Organisms: None Reported Past Surgical History: Adenoidectomy, Tonsillectomy Additional Past Anesthesia/Blood Transfusion Reaction / Comment(s): No transfu tereso history Past Psychological History: ADD/ADHD, Anxiety, Bipolar, Depression, PTSD Additional Psychological History / Comment(s): Manic depression Smoking Status: Current every day smoker Past Alcohol Use History: Occasional Past Drug Use History: Methamphetamine Additional Drug Use History / Comment(s): Per the patient's mother the patient had a previous addiction to meth but has been sober one year and is currently residing at a /4 house. - Past Family History Father Family Medical History: Unable to Obtain Medications and Allergies Home Medications Medication Instructions Recorded Confirmed Type Divalproex [Depakote] 500 mg PO DAILY 30 Days tablet. 08/25/20 03/04/21 Rx Divalproex [Depakote] 750 mg PO HS 02/28/21 03/04/21 History QUEtiapine [SEROquel] 150 mg PO HS #30 tab 03/03/21 03/04/21 Rx Allergies Allergy/AdvReac Type Severity Reaction Status Date / Time Penicillins Allergy FAMILY Verified 03/04/21 17:55 HISTORY Physical Exam Vitals: Vital Signs Temp Pulse Resp BP Pulse Ox 03/05/21 00:36 98.2 F 82 16 132/89 98 03/04/21 21:00 88 16 122/85 97 03/04/21 18:58 92 18 122/84 98 03/04/21 17:21 98.0 F 91 16 150/91 99 Intake and Output 03/04/21 03/04/21 03/05/21 14:59 22:59 06:59 Other: Voiding Method Toilet Weight 90.718 kg 90.718 kg Constitutional: No acute distress, conversant, cooperative, however he sweating profusely Eyes: Anicteric sclerae, moist conjunctiva, Pupils equal round reactive to light ENMT: NC/AT Oropharynx clear, no erythema, or exudates Neck: Supple, FROM, no masses, or JVD No carotid bruits No thyromegaly Lungs: Clear to auscultation Clear to percussion Normal respiratory effort, no accessory muscle use Cardiovascular: Heart regular in rate and rhythm, No murmurs, gallops, or rubs No peripheral edema Abdominal: Abdomen feels tense due to voluntary contractions Nontender, no guarding, rebound or rigidity Abdomen moving with respiration Normoactive bowel sounds No hepatomegaly, No splenomegaly No palpable mass No abdominal wall hernia noted Skin: Normal temperature, tone, texture, turgor No induration No subcutaneous nodules No rash, lesions No ulcers Extremities: No digital cyanosis No clubbing Pedal pulses intact and symmetrical Radial pulses intact and symmetrical No calf tenderness Psychiatric: Alert and oriented to person, place and time Patient looks anxious fair judgement Neuro Muscles Strength 5/5 in all 4 extremities Sensation to light touch grossly present throughout Cranial nerves II-XII grossly intact No focal sensory deficits Lymphatics: no palpable cervical or supraclavicular , or inguinal lymph nodes Results CBC & Chem 7: 03/04/21 18:04 03/04/21 18:04 Labs: Abnormal Lab Results - Last 24 Hours (Table) 03/04/21 03/04/21 03/04/21 Range/Units 18:04 18:04 18:04 WBC 13.5 H (3.8-10.6) k/uL Neutrophils # (Manual) 8.51 H (1.3-7.7) k/uL Monocytes # (Manual) 1.08 H (0-1.0) k/uL Chloride 108 H (98-107) mmol/L Carbon Dioxide 21 L (22-30) mmol/L Glucose 107 H (74-99) mg/dL AST 80 H (17-59) U/L ALT 91 H (4-49) U/L Urine Protein Trace H (Negative) Urine Ketones Trace H (Negative) Urine Bilirubin 1+ H (Negative) U Benzodiazepines Scrn Detected H (NotDetected) U Marijuana (THC) Screen Detected H (NotDetected) Thrombosis Risk Factor Assmnt - Choose All That Apply Each Factor Represents 1 point: Obesity (BMI >25) Thrombosis Risk Factor Assessment Total Risk Factor Score: 1 Thrombosis Risk Factor Assessment Level: Low Risk Assessment and Plan Assessment: Polysubstance abuse Possible drug withdrawal versus drug abuse We'll continue to monitor closely for at least 24 hours Monitor vital signs 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
[2021-03-05] MEDS: LORazepam 2 MG/ML INJ IV PRN ×3 (03:02→16:32)
[2021-03-05 10:11] LABS: Basophils # (A) 0.03 X 10*3/uL (0.00-0.10); Basophils % (A) 0.3 %; Eosinophils % (A) 1.1 %; HCT 37.9 % (39.6-50.0); HGB 13.2 g/dL (13.0-17.0); Lymphocytes # (A) 3.32 X 10*3/uL (0.90-5.00); Lymphocytes % (A) 36.4 %; MCH 33.6 pg (27.0-32.0); MCHC 34.8 g/dL (32.0-37.0); MCV 96.4 fL (80.0-97.0); Mean Platelet Volume 10.8 fL (9.5-12.2); Monocytes % (A) 9.9 %; Neutrophils # (A) 4.71 X 10*3/uL (1.80-7.70); Neutrophils % (A) 51.8 %; Platelet Count 173 X 10*3/uL (140-440); RBC 3.93 X 10*6/uL (4.40-5.60); WBC 9.11 X 10*3/uL (4.50-10.00)
[2021-03-05] MEDS: DIVALPROEX 500 MG TABLET.DR PO SCH (10:22)
[2021-03-05 11:46] LABS: African American GFR (CKD) 129.6 (60.0-200.0); Albumin 3.7 g/dL (3.80-4.90); Albumin/Globulin Ratio 1.54 (1.60-3.17); Anion Gap 8.3 mmol/L (4.00-12.00); BUN/Creat Ratio 12.22 Ratio (12.00-20.00); Calcium 8.4 mg/dL (8.7-10.3); Carbon Dioxide 24.7 mmol/L (21.6-31.8); Globulin 2.4 g/dL (1.6-3.3); Non-African American GFR(CKD) 111.8 (60.0-200.0); Potassium 3.2 mmol/L (3.5-5.5); Total Bilirubin 0.6 mg/dL (0.3-1.2); Total Protein 6.1 g/dL (6.2-8.2)
--- NOTE | 2021-03-05 13:49 | P.PN ---
Subjective Progress Note Date: 03/05/21 Hospital course: Patient is a 31-year-old male with a past medical history of polysubstance abuse with alcohol, meth and Kratom, seizures, mild intermittent asthma, psychosis, bipolar disorder, and nicotine dependence. He presented to the emergency department on 03/04/21 with a chief complaint of withdrawal symptoms consisting of anxiety, tremors and diaphoresis status post recent discharge from our facility on 03/03/21 secondary to admission for overdose on Kratom. Patient reports having shots of vodka and two lcle-ohz-zkngbiq Kratom pills prior to presenting in the emergency department in attempts to self treat his profuse sweating and tremors. Patient was seen and fully evaluated in the emergency department and found to have leukocytosis with WBC count of 13.5, elevated liver enzymes with AST of 80 and ALT of 91, EtOH negative, UDS positive for benzos and marijuana, Depakote level therapeutic at 77.3, and lithium level of < 0.2. Patient admitted Under our services with consultation to psychiatry. Physical exam: Vital signs reviewed and stable. General: Nontoxic, no distress and appears stated age. Derm: Skin warm and diaphoretic Head: Atraumatic, normocephalic and symmetric. Eyes: EOMs intact, no lid lag, and anicteric sclera Mouth: no lip lesions, mucus membranes moist Cardiovascular: regular rate and rhythm with normal S1S2, no murmur, positive posterior tibial pulses bilaterally, and cap refill < 2 seconds. Lungs: Respirations even, regular, and unlabored on room air. Lungs CTA bilaterally, no rhonchi, no rales, no wheezing, and no accessory muscle usage. Abdominal: soft, nontender to palpation, no guarding, no appreciable organomegaly Ext: ROM intact. No gross muscle atrophy, no edema, no contractures Neuro: Speech clear, face symmetrical and CN II-XII grossly intact with no noted focal neuro deficits. Tremors present Psych: Alert and oriented to person, place, time, and situation. Appropriate and pleasant affect. Assessment and Plan of Care: Polysubstance abuse with Kratom, meth, and alcohol currently exhibiting withdrawal symptoms -CIWA protocol with symptom triggered medication management. -Seizure precautions, fall precautions, and aspiration precautions -Telemetry monitoring -Consult to psychiatry, appreciate recommendations History of seizure disorder -Depakote level therapeutic at 77.3 -Continue daily home medication regimen with Depakote -Seizure precautions in place. Psychiatric history consisting of psychosis and bipolar disorder with long- standing history of polysubstance abuse -Continue daily medication regimen and consult to psychiatry. CODE STATUS: Full code DVT prophylaxis: Heparin Discussed with: Patient and RN Anticipated discharge date: Clinical course to determine Anticipated discharge place: Home A total of 45 minutes was spent on the care of this complex patient more than 50% of the time was spent in counseling and care coordination. Objective - Vital Signs Vital signs: Vital Signs Temp 98.5 F 03/05/21 07:00 Pulse 82 03/05/21 08:00 Resp 16 03/05/21 08:00 BP 104/57 03/05/21 07:00 Pulse Ox 96 03/05/21 07:00 Intake & Output 03/04/21 03/05/21 03/05/21 18:59 06:59 18:59 Weight 90.718 kg 90.718 kg Other: Voiding Method Toilet Toilet # Voids 1 - Labs CBC & Chem 7: 03/05/21 05:52 03/05/21 05:52 Labs: Abnormal Lab Results - Last 24 Hours (Table) 03/04/21 03/04/21 03/04/21 Range/Units 18:04 18:04 18:04 WBC 13.5 H (3.8-10.6) k/uL RBC (4.40-5.60) X 10*6/uL Hct (39.6-50.0) % MCH (27.0-32.0) pg Immature Gran # (0.00-0.04) X 10*3/uL Neutrophils # (Manual) 8.51 H (1.3-7.7) k/uL Monocytes # (Manual) 1.08 H (0-1.0) k/uL Potassium (3.5-5.5) mmol/L Chloride 108 H (98-107) mmol/L Carbon Dioxide 21 L (22-30) mmol/L Glucose 107 H (74-99) mg/dL Calcium (8.7-10.3) mg/dL AST 80 H (17-59) U/L ALT 91 H (4-49) U/L Total Protein (6.2-8.2) g/dL Albumin (3.80-4.90) g/dL Albumin/Globulin Ratio (1.60-3.17) g/dL Urine Protein Trace H (Negative) Urine Ketones Trace H (Negative) Urine Bilirubin 1+ H (Negative) U Benzodiazepines Scrn Detected H (NotDetected) U Marijuana (THC) Screen Detected H (NotDetected) 03/05/21 03/05/21 Range/Units 05:52 05:52 WBC (3.8-10.6) k/uL RBC 3.93 L (4.40-5.60) X 10*6/uL Hct 37.9 L (39.6-50.0) % MCH 33.6 H (27.0-32.0) pg Immature Gran # 0.05 H (0.00-0.04) X 10*3/uL Neutrophils # (Manual) (1.3-7.7) k/uL Monocytes # (Manual) (0-1.0) k/uL Potassium 3.2 L (3.5-5.5) mmol/L Chloride (98-107) mmol/L Carbon Dioxide (22-30) mmol/L Glucose 134 H (74-99) mg/dL Calcium 8.4 L (8.7-10.3) mg/dL AST 56 H (17-59) U/L ALT 70 H (4-49) U/L Total Protein 6.1 L (6.2-8.2) g/dL Albumin 3.70 L (3.80-4.90) g/dL Albumin/Globulin Ratio 1.54 L (1.60-3.17) g/dL Urine Protein (Negative) Urine Ketones (Negative) Urine Bilirubin (Negative) U Benzodiazepines Scrn (NotDetected) U Marijuana (THC) Screen (NotDetected)
--- NOTE | 2021-03-05 14:22 | P.CN ---
Psychiatric Consult - . Consult date: 03/05/21 Consult:: 03/05/21 14:22 IDENTIFYING DATA: This patient is a single, unemployed, 31-year-old male, who was recently discharged from this hospital but came back due to worsening "withdrawal symptoms" HISTORY OF PRESENT ILLNESS: The patient presented to the hospital on 03/04/2021 with complaints of "withdrawal like symptoms," after being released from this hospital on 03/03/2021 where he was admitted for altered mental status. During his previous admission, the patient also displayed similar symptoms of diaphoresis, tremors, and nausea. The patient's mother is also present in the room and she provides collateral information which the patient allows. The patient's mother reports that once the patient was discharged, they were looking at getting him a job with interviews lined up but the patient began to feel "dope sick." The patient is much more alert and oriented today compared to his previous psychiatric admission. He does admit that he did take Kratoms [id number] the form of a powder. He states that he did not use any Kratoms since he was last discharged on the . Currently, the patient is not reporting any suicidal or homicidal ideation, intention, and/or plan. He is not reporting any auditory or visualizations. He denies any paranoia or other delusions. The patient is denying any significant issues regarding sleep or appetite. The patient's primary concern at this time is the withdrawal symptoms that he is currently experiencing. The patient reports that he has felt this way before when he was coming off opiates. He expresses that he is feeling sweats, hot and cold flashes, tremors, and excessive yawning. He is currently not reporting any diarrhea or joint pain. The patient's mother also discusses concern that the patient has been off his medications due to this recent hospitalization and is wishing for the patient to be back on his medications. The patient is agreeable at this time as well. PAST PSYCHIATRIC HISTORY: Patient has a history of bipolar disorder and psychostimulant dependence. The patient's home medication regimen included Seroquel, Effexor, lithium, Depakote, clonidine, and Cogentin. The patient has had numerous inpatient psychiatric hospitalizations, including [place] this [place] [facility] He has had also other stays at [facility] and [facility]. Patient is open with [facility]. The Patient has numerous suicide attempts in the past. PAST MEDICAL HISTORY: Past Medical History: Asthma, Seizure Disorder Additional Past Medical History / Comment(s): back pain, History of Any Multi-Drug Resistant Organisms: None Reported Past Surgical History: Adenoidectomy, Tonsillectomy Additional Past Anesthesia/Blood Transfusion Reaction / Comment(s): No transfusion history Past Psychological History: ADD/ADHD, Anxiety, Bipolar, Depression, PTSD Additional Psychological History / Comment(s): Manic depression Smoking Status: Current every day smoker Past Alcohol Use History: Occasional Past Drug Use History: Methamphetamine Additional Drug Use History / Comment(s): Per the patient's mother the patient had a previous addiction to meth but has been sober one year and is currently residing at a 3/4 house. ALLERGIES: Penicillin CHEMICAL DEPENDENCY HISTORY: Patient has significant history of opiate use, marijuana use, and methamphetamines. FAMILY PSYCHIATRIC/SUBSTANCE USE HISTORY: The patient reports a family history of bipolar disorder. He reports heavy use of alcohol and cocaine on both sides of his family. SOCIAL HISTORY: Patient was born and raised in [place], [place]. He was most recently incarcerated for a year for the conviction of a third degree home invasion. He was staying in a three-quarter house prior to this admission. MENTAL STATUS EXAM: General Appearance: Patient appears to be stated age is alert and cooperative. He is currently shirtless and has multiple tattoos. Behavior: Patient is calmly lying in bed without any agitated behavior. He appears to be mildly tremulous and slightly diaphoretic. Speech: Patient's speech is fluent and nonpressured. Speech is low in volume, and nonspontaneous. Mood/Affect: Patient reports their mood is "I'm fine, just dope sick." Affect is congruent and malaised. Blunted affect. Suicidality/Homicidality: Patient denies having any suicidal or homicidal ideation intent or plan. Perceptions: Patient denies any visual hallucinations and denies any auditory hallucinations Though content/process: There is no evidence of any delusional thought content and thought process is linear and goal-directed. Memory and concentration: AOX3, grossly intact for the purposes of this session. Can spell "WORLD" backwards Judgment and insight: poor IMPRESSIONS: Opiate withdrawal, likely secondary to the patient's intake of Kratom (acts on opiate receptor) Bipolar Disorder, Type 1 Polysubstance abuse PLAN: -At this time patient DOES NOT meet criteria for inpatient psychiatric admission. The patient is currently not endorsing any imminent risk of harm to self or others. He is not acutely psychotic. He is not responding to any internal stimuli. He is alert and oriented in all spheres. -As per discussion with the patient's mother, we will restart his psychotropic medications; Would recommend the following medication changes/additions: Depakote 500 mg daily, 750 mg at bedtime for mood stabilization Seroquel 50 mg in the morning and 300 mg at bedtime for psychosis/mood stabilization (prior to previous admission was on 100 mg in the morning and 400 mg at bedtime) Effexor XR 150 mg daily for depression/anxiety (prior to previous admission, patient was on 225 + 37.5 of effexor) Clonidine 0.1 mg twice daily for opiate withdrawal Cogentin 0.5 mg twice daily for EPS [place] will be held due to concern of depakote and lithium drug-drug interactions. -Patient is cleared psychiatrically for discharge. Recommend outpatient psychiatry follow-up for medication management. Patient's mother reports on his previous regimen, patient was stable psychiatrically and functioning well prior to his use of psychoactive substances such as kratoms. -Psychiatry will sign off at this point, please contact with any questions. 03/05/21 14:22
[2021-03-05] MEDS ORDERED: QUEtiapine 50 MG TAB PO SCH (14:24)
[2021-03-05] MEDS ORDERED: THIAMINE 100 MG/ML 2 ML VIAL IM STA (15:37)
[2021-03-05] MEDS ORDERED: LORazepam 2 MG/ML INJ IV PRN ×3 (15:37)
[2021-03-05] MEDS: HEPARIN SODIUM,PORCINE/PF 5,000 UNIT/0.5 ML SYRINGE SQ SCH (16:56)
[2021-03-05] MEDS: cloNIDine HCL 0.1 MG TAB PO SCH (19:30)
[2021-03-05] MEDS: BENZTROPINE MESYLATE 0.5 MG TAB PO SCH (19:30)
[2021-03-05] MEDS: QUEtiapine 100 MG TAB PO SCH (19:35)
[2021-03-06] MEDS: HEPARIN SODIUM,PORCINE/PF 5,000 UNIT/0.5 ML SYRINGE SQ SCH ×2 (00:30→08:39)
[2021-03-06] MEDS: SODIUM CHLORIDE 0.9% 1,000 ML IV SCH (04:34)
[2021-03-06] MEDS ORDERED: THIAMINE 100 MG TAB PO SCH (07:30)
[2021-03-06 08:11] VITALS: BP 114/75; PULSE 78; RESP 16; TEMP 98.3
[2021-03-06] MEDS: QUEtiapine 100 MG TAB PO SCH (08:37)
[2021-03-06] MEDS: BENZTROPINE MESYLATE 0.5 MG TAB PO SCH (08:37)
[2021-03-06] MEDS: cloNIDine HCL 0.1 MG TAB PO SCH (08:37)
[2021-03-06] MEDS: DIVALPROEX 500 MG TABLET.DR PO SCH (08:38)
[2021-03-06] MEDS ORDERED: QUEtiapine 50 MG TAB PO SCH (09:00)
[2021-03-06] MEDS ORDERED: VENLAFAXINE HCL ER 150 MG CAP PO SCH (09:00)
--- NOTE | 2021-03-06 09:55 | P.DS ---
Providers Date of admission: 03/04/21 23:34 Expected date of discharge: 03/06/21 Attending physician: Connie Nuñez MD Consults: 03/04/21 23:30 Consult Physician Urgent Consulting Provider: Eber Fernández Consult Reason/Comments: Altered mental status Do you want consulting provider notified?: Already Contacted Primary care physician: Stated None Hospital Course: Discharge Diagnosis: Polysubstance abuse with Kratom, meth, and alcohol presenting with symptoms of withdrawal History of seizure disorder Psychiatric history consisting of psychosis and bipolar disorder with long- standing history of polysubstance abuse Hospital Course: Patient is a 31-year-old male with a past medical history of polysubstance abuse with alcohol, meth and Kratom, seizures, mild intermittent asthma, psychosis, bipolar disorder, and nicotine dependence. He presented to the emergency department on 03/04/21 with a chief complaint of withdrawal symptoms consisting of anxiety, tremors and diaphoresis status post recent discharge from our facility on 03/03/21 secondary to admission for overdose on Kratom. Patient reports having shots of vodka and two ofvo-apt-squyjtt Kratom pills prior to presenting in the emergency department in attempts to self treat his profuse sweating and tremors. Patient was seen and fully evaluated in the emergency department and found to have leukocytosis with WBC count of 13.5, elevated liver enzymes with AST of 80 and ALT of 91, EtOH negative, UDS positive for benzos and marijuana, Depakote level therapeutic at 77.3, and lithium level of < 0.2. Patient admitted Under our services with consultation to psychiatry, he was monitored closely and treated with Ativan for symptoms of withdrawal. He was evaluated by psychiatry and many medication changes were made. Patient's lithium was discontinued and dose adjustments were made for Depakote, Seroquel, Effexor, clonidine, and Cogentin. Patient is stable for discharge home at this time and strongly advised to avoid all alcohol and nonprescription use of medication or drugs and that he will need to establish care with a primary care provider as recommended and follow up outpatient with psychiatrist as directed by psychiatry team. Physical exam: Patient was seen and fully evaluated at the bedside this morning. Skin was warm and dry and there were no signs of active tremors at this time. Patient denied having any complaints including headache, lightheadedness, dizziness, changes in vision or hearing, chest pain or palpitations, shortness of breath, or experiencing any numbness/tingling/weakness in his extremities. Patient is stable for discharge home at this time. Patient strongly advised against all drugs and alcohol use. Vital signs reviewed and stable. General: Nontoxic, no distress and appears stated age. Derm: Skin warm and dry. Head: Atraumatic, normocephalic and symmetric. Eyes: EOMs intact, no lid lag, and anicteric sclera Mouth: no lip lesions, mucus membranes moist Cardiovascular: regular rate and rhythm with normal S1S2, no murmur, positive posterior tibial pulses bilaterally, and cap refill < 2 seconds. Lungs: Respirations even, regular, and unlabored on room air. Lungs CTA bilaterally, no rhonchi, no rales, no wheezing, and no accessory muscle usage. Abdominal: soft, nontender to palpation, no guarding, no appreciable organomegaly Ext: ROM intact. No gross muscle atrophy, no edema, no contractures Neuro: Speech clear, face symmetrical and CN II-XII grossly intact with no noted focal neuro deficits. Psych: Alert and oriented to person, place, time, and situation. Appropriate and pleasant affect. A total of 45 minutes of time were spent preparing this complex discharge summary. Patient Condition at Discharge: Stable Plan - Discharge Summary Discharge Rx Participant: No New Discharge Prescriptions: New cloNIDine HCL [Catapres] 0.1 mg PO BID 30 Days #60 tab Benztropine Mesylate [Cogentin] 0.5 mg PO BID 30 Days #60 tab Venlafaxine HCl ER [Effexor XR] 150 mg PO DAILY 30 Days #30 cap.er.24h QUEtiapine [SEROquel] 50 mg PO DAILY 30 Days #30 tab QUEtiapine [SEROquel] 300 mg PO HS 30 Days #90 tab Continue Divalproex [Depakote] 500 mg PO DAILY 30 Days tablet. Divalproex [Depakote] 750 mg PO HS Discontinued QUEtiapine [SEROquel] 150 mg PO HS #30 tab Discharge Medication List Divalproex [Depakote] 500 mg PO DAILY 30 Days tablet. 08/25/20 [Rx] Divalproex [Depakote] 750 mg PO HS 02/28/21 [History] Benztropine Mesylate [Cogentin] 0.5 mg PO BID 30 Days #60 tab 03/06/21 [Rx] QUEtiapine [SEROquel] 50 mg PO DAILY 30 Days #30 tab 03/06/21 [Rx] QUEtiapine [SEROquel] 300 mg PO HS 30 Days #90 tab 03/06/21 [Rx] Venlafaxine HCl ER [Effexor XR] 150 mg PO DAILY 30 Days #30 cap.er.24h 03/06/21 [Rx] cloNIDine HCL [Catapres] 0.1 mg PO BID 30 Days #60 tab 03/06/21 [Rx] Follow up Appointment(s)/Referral(s): Daryl Lopez [STAFF PHYSICIAN] - 1 Week Patient Instructions/Handouts: Seizure/Epilepsy Discharge Instructions & Follow-Up, Altered Mental Status (GEN) Activity/Diet/Wound Care/Special Instructions: Activity: As tolerated Special Instructions: Avoid all alcohol and non-prescribed use of medications or drugs. There have been many medication changes. The lithium has been discontinued and you are being discharged home as recommended by psychiatry on Depakote, Seroquel, Effexor, clonidine, and Cogentin. It is very important for you to establish a primary care provider and follow up with outpatient psychiatrist as recommended and with the information provided to you by Dr. Fernández. Discharge Disposition: HOME SELF-CARE
== END 2021-03-06 12:38 | disposition home or self-care (01) ==
LOC: EC 17:20 → 6NMEDSUR 23:34
PROVIDERS: ADMIT Internal Medicine; ATTEND Internal Medicine
DX: F19.139 Other psychoactive substance abuse with withdrawal, unspecified (principal); G40.909 Epilepsy, unspecified, not intractable, without status epilepticus; F31.30 Bipolar disorder, current episode depressed, mild or moderate severity, unspecified; F41.8 Other specified anxiety disorders; F43.10 Post-traumatic stress disorder, unspecified; F90.9 Attention-deficit hyperactivity disorder, unspecified type; J18.9 Pneumonia, unspecified organism; F17.200 Nicotine dependence, unspecified, uncomplicated; J45.20 Mild intermittent asthma, uncomplicated; M54.9 Dorsalgia, unspecified; Z79.899 Other long term (current) drug therapy; Z88.0 Allergy status to penicillin; Z81.8 Family history of other mental and behavioral disorders; Z81.1 Family history of alcohol abuse and dependence; Z81.3 Family history of other psychoactive substance abuse and dependence
CPT/HCPCS: 99285; 96376; 96361 ×3; 96365; 96372 ×2; 96375; 36415; 93005; 80164; 80053 ×2; 80178; 84484; 85025 ×2; 81003; 87040 ×2; 80306; 71046; 74018; 70450; G0378 ×2; G0480; J2060 ×2; J3411; J0696; J1644 ×2; 80320

== ENCOUNTER 2021-03-14 17:38 | Inpatient (IN) | payer OTHER ==
[2021-03-14] MEDS ORDERED: NALOXONE 0.4 MG/ML 1 ML VIAL IV PRN (17:47)
[2021-03-14] MEDS ORDERED: ACETAMINOPHEN SUPPOSITORY 650 MG SUPP RECTAL PRN (17:47)
[2021-03-14] MEDS: SODIUM CHLORIDE 0.9% 1,000 ML IV SCH (18:04)
[2021-03-14 18:06] LABS: HCT 39.5 % (39.0-53.0); HGB 13.7 gm/dL (13.0-17.5); MCH 33.8 pg (25.0-35.0); MCHC 34.7 g/dL (31.0-37.0); MCV 97.3 fL (80.0-100.0); Mean Platelet Volume 7.4; Platelet Count 410 k/uL (150-450); RBC 4.06 m/uL (4.30-5.90); RDW 13.4 % (11.5-15.5)
--- NOTE | 2021-03-14 18:10 | XR ---
EXAMINATION TYPE: XR chest 1V portable DATE OF EXAM: 03/14/2021 COMPARISON: 03/04/2021 HISTORY: Respiratory failure TECHNIQUE: Single view FINDINGS: Endotracheal tube is 5 cm from the vadim. Nasogastric tube is in the stomach. There is jacek e minimal infiltrate and atelectasis at the lung bases medially. Bony thorax is intact. IMPRESSION: Mild lower lobe pulmonary infiltrates increased compared to old exam. No heart failure se en.
[2021-03-14 18:12] LABS: Amphetamine Screen,Urine Not Detected (NotDetected); Barbiturate Screen,Urine Not Detected (NotDetected); Benzodiazepines Screen,Urine Not Detected (NotDetected); Cocaine Screen,Urine Not Detected (NotDetected); Methadone Screen, Urine Not Detected (NotDetected); Opiate Screen,Urine Detected (NotDetected); Oxycodone Screen, Urine Not Detected (NotDetected); Phencyclidine Screen,Urine Not Detected (NotDetected); Tricyclic Antidepressant,Urine Detected (NotDetected); Urn Cannabinoid Scrn Not Detected (NotDetected)
[2021-03-14 18:13] LABS: African American GFR (CKD) >90 (>60 ml/min/1.73 sqM); Anion Gap 14 mmol/L; Blood Urea Nitrogen 14 mg/dL (9-20); Calcium 8.7 mg/dL (8.4-10.2); Carbon Dioxide 25 mmol/L (22-30); Chloride 106 mmol/L (98-107); Glucose 103 mg/dL (74-99); Magnesium 2.2 mg/dL (1.6-2.3); Non-African American GFR(CKD) >90 (>60 ml/min/1.73 sqM); Sodium 145 mmol/L (137-145)
[2021-03-14 18:18] LABS: Alcohol 188 mg/dL
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
[2021-03-14 18:24] LABS: Band Neutrophils % 6 %; Metamyelocytes % 3 %; Neutrophils % (M) 55 %; Nucleated Red Blood Cells 2 /100 WBC (0-0); Total Cells Counted 100
[2021-03-14 18:40] LABS: ABG HCO3 27 mmol/L (21-25); ABG Oxygen Saturation 99.5 % (94-97); ABG PCO2 47 mmHg (35-45); ABG PH 7.37 (7.35-7.45); ABG PO2 146 mmHg (83-108); ABG TCO2 29 mmol/L (19-24); Allen Test Performed? Yes
[2021-03-14 18:59] LABS: Glucose,Whole Blood 99 mg/dL (75-99)
[2021-03-15 04:11] LABS: ALT 45 U/L (4-49); AST 77 U/L (17-59); African American GFR (CKD) >90 (>60 ml/min/1.73 sqM); Albumin 3.5 g/dL (3.5-5.0); Alkaline Phosphatase 91 U/L (38-126); Anion Gap 7 mmol/L; Blood Urea Nitrogen 12 mg/dL (9-20); Calcium 8.4 mg/dL (8.4-10.2); Carbon Dioxide 28 mmol/L (22-30); Chloride 108 mmol/L (98-107); Glucose 95 mg/dL (74-99); Non-African American GFR(CKD) >90 (>60 ml/min/1.73 sqM); Sodium 143 mmol/L (137-145); Total Bilirubin 0.4 mg/dL (0.2-1.3); Total Protein 6.4 g/dL (6.3-8.2)
[2021-03-15 04:32] LABS: HCT 40.1 % (39.0-53.0); HGB 13.6 gm/dL (13.0-17.5); MCH 33.9 pg (25.0-35.0); MCHC 33.9 g/dL (31.0-37.0); Mean Platelet Volume 7.7; Platelet Count 345 k/uL (150-450); RBC 4.01 m/uL (4.30-5.90); RDW 13.5 % (11.5-15.5); WBC 13.7 k/uL (3.8-10.6)
[2021-03-15 04:38] LABS: ABG Base Excess 5.2 mmol/L; ABG HCO3 30 mmol/L (21-25); ABG PCO2 47 mmHg (35-45); ABG PH 7.41 (7.35-7.45); ABG PO2 82 mmHg (83-108); ABG TCO2 31 mmol/L (19-24); Allen Test Performed? Yes
[2021-03-15 04:59] LABS: Eosinophils # (M) 0.27 k/uL (0-0.7); Metamyelocytes # (M) 0.14 k/uL (0); Metamyelocytes % 1 %; Monocytes # (M) 0.82 k/uL (0-1.0); Neutrophils # (M) 7.67 k/uL (1.3-7.7); Neutrophils % (M) 56 %; Nucleated Red Blood Cells 0 /100 WBC (0-0); Total Cells Counted 100
[2021-03-15] MEDS: SODIUM CHLORIDE 0.9% 1,000 ML IV SCH ×2 (05:51→14:01)
--- NOTE | 2021-03-15 07:25 | XR ---
EXAMINATION TYPE: XR chest 1V portable DATE OF EXAM: 03/15/2021 Comparison: 03/14/2021 Clinical History: 31-year-old female assess lungs Findings: ET tube tip above the level of the medial clavicular heads. Advanced by 2 cm and reassessed on follow -up. NG tube courses below the diaphragm. Heart is borderline enlarged. Some strandy atelectasis in t he lower lungs. No pleural effusion seen. Impression: 1. Advance the ET tube by 2 cm and reassess at follow-up. 2. Stable borderline cardiomegaly. 3. Some strandy basilar density, probably atelectasis, remains.
[2021-03-15] MEDS ORDERED: LORazepam 2 MG/ML INJ IV PRN (08:52)
[2021-03-15] MEDS: DIVALPROEX 500 MG TABLET.DR PO SCH (08:54)
[2021-03-15] MEDS: VENLAFAXINE HCL ER 150 MG CAP PO SCH (08:55)
[2021-03-15] MEDS ORDERED: PANTOPRAZOLE 40 MG/10 ML VIAL IV SCH (09:00)
[2021-03-15] MEDS: QUEtiapine 100 MG TAB PO SCH (09:25)
[2021-03-15] MEDS: BENZTROPINE MESYLATE 0.5 MG TAB PO SCH ×2 (09:25→21:35)
[2021-03-15] MEDS: cloNIDine HCL 0.1 MG TAB PO SCH ×2 (09:25→21:30)
[2021-03-15 11:27] LABS: Glucose,Whole Blood 88 mg/dL (75-99)
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
[2021-03-15] MEDS: CLINDAMYCIN 300 MG in DEXTROSE 5% IN WATER 50 ML IVPB SCH ×4 (14:01→18:56)
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
[2021-03-15 17:35] LABS: Glucose,Whole Blood 81 mg/dL (75-99)
[2021-03-15] MEDS: FAMOTIDINE 20 MG/2 ML VIAL IV SCH (21:30)
[2021-03-15] MEDS: DIVALPROEX 250 MG TABLET.DR PO SCH (21:36)
[2021-03-15] MEDS: QUEtiapine 400 MG TAB PO SCH (21:36)
[2021-03-16 04:07] LABS: African American GFR (CKD) >90 (>60 ml/min/1.73 sqM); Anion Gap 5 mmol/L; Blood Urea Nitrogen 9 mg/dL (9-20); Calcium 8.3 mg/dL (8.4-10.2); Carbon Dioxide 26 mmol/L (22-30); Chloride 106 mmol/L (98-107); Glucose 94 mg/dL (74-99); Non-African American GFR(CKD) >90 (>60 ml/min/1.73 sqM); Potassium 4.1 mmol/L (3.5-5.1); Sodium 137 mmol/L (137-145)
[2021-03-16] MEDS: CLINDAMYCIN 300 MG in DEXTROSE 5% IN WATER 50 ML IVPB SCH ×8 (04:14→17:27)
[2021-03-16] MEDS: SODIUM CHLORIDE 0.9% 1,000 ML IV SCH ×2 (04:15→08:51)
[2021-03-16 04:48] LABS: HCT 39.3 % (39.0-53.0); HGB 13.4 gm/dL (13.0-17.5); MCH 33.6 pg (25.0-35.0); MCV 98.6 fL (80.0-100.0); Mean Platelet Volume 7.3; Platelet Count 272 k/uL (150-450); RBC 3.99 m/uL (4.30-5.90); RDW 13.6 % (11.5-15.5); WBC 13.5 k/uL (3.8-10.6)
[2021-03-16 05:08] LABS: Band Neutrophils % 1 %; Eosinophils # (M) 0.41 k/uL (0-0.7); Lymphocytes # (M) 4.86 k/uL (1.0-4.8); Monocytes # (M) 1.35 k/uL (0-1.0); Neutrophils % (M) 50 %; Nucleated Red Blood Cells 0 /100 WBC (0-0); Total Cells Counted 100
[2021-03-16] MEDS: FAMOTIDINE 20 MG/2 ML VIAL IV SCH (08:49)
[2021-03-16] MEDS: QUEtiapine 100 MG TAB PO SCH (08:50)
[2021-03-16] MEDS: DIVALPROEX 500 MG TABLET.DR PO SCH (08:50)
[2021-03-16] MEDS: cloNIDine HCL 0.1 MG TAB PO SCH ×2 (08:50→20:15)
[2021-03-16] MEDS: BENZTROPINE MESYLATE 0.5 MG TAB PO SCH ×2 (08:50→20:15)
[2021-03-16] MEDS: VENLAFAXINE HCL ER 150 MG CAP PO SCH (08:51)
[2021-03-16] MEDS ORDERED: IPRATROPIUM-ALBUTEROL 3 ML NEB INHALATION PRN (09:16)
[2021-03-16] MEDS ORDERED: LORazepam 2 MG/ML INJ IV PRN (09:17)
[2021-03-16] MEDS: PANTOPRAZOLE 40 MG TABLET PO SCH (09:34)
--- NOTE | 2021-03-16 11:18 | XR ---
EXAMINATION TYPE: XR chest 1V portable DATE OF EXAM: 03/16/2021 COMPARISON: 03/15/2021 HISTORY: Shortness of breath TECHNIQUE: Single frontal view of the chest is obtained. FINDINGS: Right lower lobe and left perihilar infiltrates are stable. No pleural effusion or pneumot horax. Heart size normal. No overt failure. IMPRESSION: Bilateral infiltrate correlate for pneumonia.
[2021-03-16] MEDS: IPRATROPIUM-ALBUTEROL 3 ML NEB INHALATION SCH ×2 (11:54→20:59)
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
[2021-03-16] MEDS: methylPREDNISolone SOD SUCCI 125 MG/2 ML VIAL IV SCH ×2 (12:44→17:26)
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
[2021-03-16] MEDS: ACETAMINOPHEN TAB 325 MG TAB PO PRN (15:27)
[2021-03-16] MEDS: DIVALPROEX 250 MG TABLET.DR PO SCH (20:15)
[2021-03-16] MEDS: QUEtiapine 400 MG TAB PO SCH (20:15)
[2021-03-17] MEDS: CLINDAMYCIN 300 MG in DEXTROSE 5% IN WATER 50 ML IVPB SCH ×4 (00:46→06:08)
[2021-03-17] MEDS: SODIUM CHLORIDE 0.9% 1,000 ML IV SCH ×2 (00:48→11:52)
[2021-03-17] MEDS: IPRATROPIUM-ALBUTEROL 3 ML NEB INHALATION SCH ×3 (07:48→19:24)
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
[2021-03-17] MEDS ORDERED: predniSONE 10 MG TAB PO SCH (09:00)
--- NOTE | 2021-03-17 09:00 | XR ---
EXAMINATION TYPE: XR chest 1V DATE OF EXAM: 03/17/2021 COMPARISON: 03/16/2021 HISTORY: Cough TECHNIQUE: Single frontal view of the chest is obtained. FINDINGS: Dense area of consolidation in the retrocardiac region bilaterally. No sizable pleural eff usion or interstitial edema. Heart size normal. No pneumothorax. IMPRESSION: Bilateral lower lobe infiltrate.
[2021-03-17] MEDS: DIVALPROEX 500 MG TABLET.DR PO SCH (09:12)
[2021-03-17] MEDS: PANTOPRAZOLE 40 MG TABLET PO SCH (09:12)
[2021-03-17] MEDS: VENLAFAXINE HCL ER 150 MG CAP PO SCH (09:13)
[2021-03-17] MEDS: BENZTROPINE MESYLATE 0.5 MG TAB PO SCH (09:13)
[2021-03-17] MEDS: QUEtiapine 100 MG TAB PO SCH (09:13)
[2021-03-17] MEDS: ACETAMINOPHEN TAB 325 MG TAB PO PRN (09:21)
[2021-03-17 10:03] VITALS: TEMP 98
[2021-03-17] MEDS ORDERED: NICOTINE 14MG/24HR PATCH TRANSDERM SCH (13:15)
[2021-03-17] MEDS ORDERED: SODIUM CHLORIDE 0.65% NASAL SPRAY 44 ML BTL NASAL PRN (14:35)
[2021-03-17 15:31] VITALS: BP 120/67; RESP 16
[2021-03-17] MEDS ORDERED: LORazepam 1 MG TAB PO STA (16:08)
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
[2021-03-17 19:36] VITALS: PULSE 72
[2021-03-17] MEDS ORDERED: SYMBICORT 160-4.5 MCG INHALER INHALATION SCH (20:00)
== END 2021-03-17 19:50 | DRG 917 ==
LOC: EC 17:38 → 2SICU 17:47
PROVIDERS: ADMIT Hospitalist; ATTEND Hospitalist
PROC: 0BH17EZ Insertion of Endotracheal Airway into Trachea, Via Natural or Artificial Opening (ICD-10-PCS; principal; 2021-03-14)
PROC: 5A1945Z Respiratory Ventilation, 24-96 Consecutive Hours (ICD-10-PCS; 2021-03-14)
DX: T50.901A Poisoning by unspecified drugs, medicaments and biological substances, accidental (unintentional), initial encounter (principal); J96.01 Acute respiratory failure with hypoxia; G92 Toxic encephalopathy; F31.30 Bipolar disorder, current episode depressed, mild or moderate severity, unspecified; Z99.11 Dependence on respirator [ventilator] status; F15.20 Other stimulant dependence, uncomplicated; F10.129 Alcohol abuse with intoxication, unspecified; F17.200 Nicotine dependence, unspecified, uncomplicated; F43.10 Post-traumatic stress disorder, unspecified; F90.9 Attention-deficit hyperactivity disorder, unspecified type; Y90.8 Blood alcohol level of 240 mg/100 ml or more; X58.XXXA Exposure to other specified factors, initial encounter; Z79.899 Other long term (current) drug therapy; S02.2XXA Fracture of nasal bones, initial encounter for closed fracture; Z91.14 Patient's other noncompliance with medication regimen; M54.9 Dorsalgia, unspecified; Z20.822 Contact with and (suspected) exposure to COVID-19; J45.909 Unspecified asthma, uncomplicated; S00.83XA Contusion of other part of head, initial encounter; G40.909 Epilepsy, unspecified, not intractable, without status epilepticus; F22 Delusional disorders
CPT/HCPCS: 36415; 36600; 71045; 80048; 80053; 80306; 80320; 82805; 83605; 83735; 84145; 85025; 87070; 87205; 93005; 94002; 94003; 94640; 99291

== ENCOUNTER 2021-03-17 18:54 | Inpatient (IN) | payer MEDICAID, OTHER ==
[2021-03-17] MEDS ORDERED: MAGNESIUM HYDROXIDE 2,400 MG/10 ML CUP PO PRN (20:03)
[2021-03-17] MEDS ORDERED: MAG HYDROX/AL HYDROX/SIMETH 30 ML CUP PO PRN (20:03)
[2021-03-17] MEDS: hydrOXYzine pamoate 25 MG CAP PO PRN (20:05)
[2021-03-17] MEDS ORDERED: HALOPERIDOL LACTATE 5 MG/ML 1 ML VIAL IM PRN (20:09)
[2021-03-17] MEDS ORDERED: ONDANSETRON ODT 4 MG TAB PO PRN (20:12)
[2021-03-17] MEDS ORDERED: SODIUM CHLORIDE 0.65% NASAL SPRAY 44 ML BTL NASAL PRN (20:12)
[2021-03-17] MEDS ORDERED: ALBUTEROL INHALER 60 PUFF/8 GM INHALER (MHU) INHALATION PRN (20:12)
[2021-03-17] MEDS: haloperidoL 1 MG TAB PO PRN (20:14)
[2021-03-17] MEDS: BENZTROPINE MESYLATE 0.5 MG TAB PO SCH (20:55)
[2021-03-17] MEDS: DIVALPROEX 250 MG TABLET.DR PO SCH (20:55)
[2021-03-17] MEDS: QUEtiapine 100 MG TAB PO SCH (20:56)
[2021-03-17] MEDS: NICOTINE 14MG/24HR PATCH TRANSDERM SCH (21:26)
[2021-03-18] MEDS: hydrOXYzine pamoate 25 MG CAP PO PRN ×2 (08:43→12:47)
[2021-03-18] MEDS: NICOTINE 14MG/24HR PATCH TRANSDERM SCH (08:43)
[2021-03-18] MEDS: ACETAMINOPHEN TAB 325 MG TAB PO PRN ×2 (08:44→14:13)
[2021-03-18] MEDS: DIVALPROEX 500 MG TABLET.DR PO SCH (08:44)
[2021-03-18] MEDS: VENLAFAXINE HCL ER 150 MG CAP PO SCH (08:44)
[2021-03-18] MEDS: BENZTROPINE MESYLATE 0.5 MG TAB PO SCH ×2 (08:45→20:22)
[2021-03-18] MEDS ORDERED: QUEtiapine 100 MG TAB PO SCH (09:00)
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
[2021-03-18] MEDS: ALBUTEROL INHALER 60 PUFF/8 GM INHALER (MHU) INHALATION SCH ×2 (16:39→20:23)
[2021-03-18] MEDS: haloperidoL 1 MG TAB PO PRN (17:56)
[2021-03-18] MEDS: QUEtiapine 100 MG TAB PO SCH (20:22)
[2021-03-18] MEDS: DIVALPROEX 250 MG TABLET.DR PO SCH (20:22)
[2021-03-19] MEDS: NICOTINE 14MG/24HR PATCH TRANSDERM SCH (08:09)
[2021-03-19] MEDS: ALBUTEROL INHALER 60 PUFF/8 GM INHALER (MHU) INHALATION SCH ×3 (08:10→20:51)
[2021-03-19] MEDS: BENZTROPINE MESYLATE 0.5 MG TAB PO SCH ×2 (08:11→20:51)
[2021-03-19] MEDS: VENLAFAXINE HCL ER 150 MG CAP PO SCH (08:11)
[2021-03-19] MEDS: DIVALPROEX 500 MG TABLET.DR PO SCH (08:11)
[2021-03-19] MEDS: hydrOXYzine pamoate 25 MG CAP PO PRN ×2 (08:13→15:42)
[2021-03-19] MEDS ORDERED: PALIPERIDONE 3 MG TAB.ER.24 PO SCH (09:00)
[2021-03-19 10:37] LABS: Chol/HDL Ratio 4.83
--- NOTE | 2021-03-19 10:53 | P.PN ---
Progress Note - Text Progress Note Date: 03/19/21 Interval History: Patient was seen resting in bed and was directable and agreeable to speak with flex o writer operator in the office. The patient reports that he is feeling "okay today." He is not reporting any suicidal or homicidal ideation, intention, and/or plan. He is not reporting any auditory or visual hallucinations. He is denying any paranoia or delusions. Patient does express that he has a significant issue with substance abuse and states that he ends up using because of elevated anxiety and an unstable mood. His provider spoke with the patient's mother who reports that the patient presented as significantly altered and almost psychotic when he was under the influence of alcohol and Kratoms prior to this admission. She does express concern about the patient's adherence with his medications. He denies any issues regarding his sleep or appetite. He has been adherent with his medications and is tolerating them well. Mental Status Exam: General Appearance: Patient appears to be stated age is alert, directable, and cooperative. Patient's facial trauma appears to be resolving. Behavior: Patient is calmly seated without any agitated behavior. Eye contact is appropriate. Speech: Patient's speech is fluent and nonpressured. Spontaneous, with normal rate, tone, and volume. Mood/Affect: Mood is improving mildly, affect is congruent and constricted. Suicidality/Homicidality: Patient denies having any suicidal or homicidal ideation intent or plan. Perceptions: Patient denies any visual hallucinations and denies any auditory hallucinations Though content/process: There is no evidence of any delusional thought content and thought process is linear and goal-directed. Memory and concentration: AOX3, grossly intact for the purposes of this session Judgment and insight: Improving mildly Vital Signs Temp 97.4 F L 03/19/21 08:08 Pulse 73 03/19/21 08:08 Resp 20 03/19/21 08:08 BP 136/77 03/19/21 08:08 Pulse Ox 95 03/17/21 20:40 Laboratory Results - Last 24 Hours 03/18/21 11:52 Triglycerides 130.0 Cholesterol 174 LDL Cholesterol, Calc 112.0 VLDL Cholesterol, Calc 26.00 HDL Cholesterol 36.0 L Cholesterol/HDL Ratio 4.83 TSH 4.420 Assessment Bipolar Disorder, Type 1 Polysubstance abuse Other psychoactive substance abuse Plan: -Patient continues to meet criteria for inpatient psychiatric admission for symptom stabilization and safety. -Medications: Continue Effexor XR 150 mg by mouth daily for depression/anxiety Increase Depakote to 750 mg by mouth twice a day for mood stabilization Continue Cogentin 0.5 mg by mouth twice a day for EPS We will taper off Seroquel this weekend. We will gradually increase Invega to 9 mg over the weekend with plans to transition the patient to Invega Sustenna on Monday. -When necessary Ativan and Haldol for agitation/aggression. -NRT - nicotine patch -SW on board for discharge planning. Encouraged the patient to participate in milieu.
[2021-03-19] MEDS: haloperidoL 1 MG TAB PO PRN (13:50)
[2021-03-19] MEDS: DIVALPROEX 250 MG TABLET.DR PO SCH (20:51)
[2021-03-19] MEDS: QUEtiapine 100 MG TAB PO SCH (20:51)
[2021-03-20] MEDS: NICOTINE 14MG/24HR PATCH TRANSDERM SCH (07:59)
[2021-03-20] MEDS: VENLAFAXINE HCL ER 150 MG CAP PO SCH (07:59)
[2021-03-20] MEDS: BENZTROPINE MESYLATE 0.5 MG TAB PO SCH ×2 (07:59→20:24)
[2021-03-20] MEDS: DIVALPROEX 250 MG TABLET.DR PO SCH ×2 (08:00→20:24)
[2021-03-20] MEDS: ALBUTEROL INHALER 60 PUFF/8 GM INHALER (MHU) INHALATION SCH ×3 (08:00→23:15)
[2021-03-20] MEDS ORDERED: PALIPERIDONE 6 MG TAB.ER.24 PO SCH (09:00)
[2021-03-20] MEDS: hydrOXYzine pamoate 25 MG CAP PO PRN ×3 (10:19→20:29)
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
[2021-03-20] MEDS: QUEtiapine 100 MG TAB PO SCH (20:24)
[2021-03-21] MEDS: ALBUTEROL INHALER 60 PUFF/8 GM INHALER (MHU) INHALATION SCH ×3 (08:04→20:21)
[2021-03-21] MEDS: NICOTINE 14MG/24HR PATCH TRANSDERM SCH (08:04)
[2021-03-21] MEDS: PALIPERIDONE 3 MG TAB.ER.24 PO SCH (08:05)
[2021-03-21] MEDS: BENZTROPINE MESYLATE 0.5 MG TAB PO SCH ×2 (08:05→19:55)
[2021-03-21] MEDS: DIVALPROEX 250 MG TABLET.DR PO SCH ×2 (08:05→19:55)
[2021-03-21] MEDS: VENLAFAXINE HCL ER 150 MG CAP PO SCH (08:05)
[2021-03-21] MEDS: haloperidoL 1 MG TAB PO PRN ×2 (11:10→21:27)
[2021-03-21] MEDS: hydrOXYzine pamoate 25 MG CAP PO PRN ×3 (11:10→19:55)
--- NOTE | 2021-03-21 12:57 | P.PN ---
Progress Note - Text Progress Note Date: 03/21/21 Clinical Problems: Bipolar disorder type I, alcohol use disorder severe, opiate use disorder, cannabis use disorder Interim history: I reviewed the medical record and interviewed the patient. He has no concerns other than discharge. He did not complain about her sleep today. He is anticipating discharge tomorrow and will return to the [facility]. He denied feeling depressed or or persistently anxious. We talked about the role of alcohol and drugs and this admission. He appears not to want to recognize that his use of alcohol and drugs have affected his thinking and decision making ability. I suspect that he will continue to try to drink and use synthetic marijuana or other substance that he believes will not be detectable when he submits a urine sample for a drug screen. According to the nursing record he slept 8 hours last night. He attended 2 therapeutic group yesterday. Mental status exam: He presented as a tall disheveled appearing 31-year-old male with 2 black eyes and contusion of his right eye. He made eye contact and attended to the interview. He had no prominent physical abnormalities. He is blunted facial expression. He was alert and oriented to person, place and time. He has psychomotor retardation but no abnormal involuntary movements. His gait was slow but steady. His speech was spontaneous with decreased rate and volume. His affect was blunted but stable and appropriate. He denied suicidal ideation, wishes or homicidal idea tion. He denied feeling hopeless, helpless or worthless. He did not express ideas reference, paranoid ideation or delusions. His thinking was concrete but his associations were coherent, logical and goal directed. He denied hallucinations did not appear to be responding to internal stimuli. Assessment: He is been compliant with prescribed medications but shows minimal insight or understanding of the reasons for his hospitalization. Plan: Continue inpatient treatment. Continue safety precautions. Cogentin 0.5 mg twice a day, Depakote 750 mg twice a day, Vistaril 50 mg 4 times a day when necessary for anxiety, Invega 6 mg daily with increase to 90 mg on 03/21/2021 and Effexor XR 150 mg daily. Any taper of Seroquel. Habitrol for smoking cessation. He is anticipating discharge on 03/22/2021. Encourage participation in therapeutic groups and activities. Evaluate clinical status response to treatment daily basis.
[2021-03-22 06:51] VITALS: BP 108/61; PULSE 54; RESP 18; TEMP 96.9
[2021-03-22] MEDS: NICOTINE 14MG/24HR PATCH TRANSDERM SCH (08:28)
[2021-03-22] MEDS: DIVALPROEX 250 MG TABLET.DR PO SCH (08:29)
[2021-03-22] MEDS: ALBUTEROL INHALER 60 PUFF/8 GM INHALER (MHU) INHALATION SCH ×3 (08:29→20:05)
[2021-03-22] MEDS: PALIPERIDONE 3 MG TAB.ER.24 PO SCH (08:29)
[2021-03-22] MEDS: VENLAFAXINE HCL ER 150 MG CAP PO SCH (08:29)
[2021-03-22] MEDS: BENZTROPINE MESYLATE 0.5 MG TAB PO SCH ×2 (08:29→20:06)
[2021-03-22] MEDS ORDERED: PALIPERIDONE IM 234 MG/1.5 ML SYG IM STA (09:39)
[2021-03-22] MEDS: hydrOXYzine pamoate 25 MG CAP PO PRN (11:35)
--- NOTE | 2021-03-22 13:01 | P.PN ---
Progress Note - Text Progress Note Date: 03/22/21 Interval History: The patient reports that he would like. He states that his family is going to acting like to join them. He is not endorsing any suicidal or homicidal ideation, intention, and/or plan. He is not reporting any auditory or visual hallucinations. Patient was adherent with his medications and is not endorsing any significant side effects at this time. Patient was informed that he will not be discharged today as he will be receiving the first dose of Invega Sustenna today to ensure patient adherence. The plan is to monitor him for 24 hours prior to discharge. The patient is agreeable to this plan after discussion with the patient and his mother. Mental Status Exam: General Appearance: Patient appears to be stated age is alert, directable, and cooperative. Patient's facial trauma appears to be resolving. Behavior: Patient is calmly seated without any agitated behavior. Eye contact is appropriate. Speech: Patient's speech is fluent and nonpressured. Spontaneous, with normal rate, tone, and volume. Mood/Affect: Mood is improving mildly, affect is congruent and constricted. Suicidality/Homicidality: Patient denies having any suicidal or homicidal ideation intent or plan. Perceptions: Patient denies any visual hallucinations and denies any auditory hallucinations Though content/process: There is no evidence of any delusional thought content and thought process is linear and goal-directed. Memory and concentration: AOX3, grossly intact for the purposes of this session Judgment and insight: Improving mildly Laboratory Results - Last 24 Hours 03/22/21 09:53 Valproic Acid 110.4 Vital Signs Temp 96.9 F L 03/22/21 06:37 Pulse 54 L 03/22/21 06:37 Resp 18 03/22/21 06:37 BP 108/61 03/22/21 06:37 Pulse Ox 95 03/17/21 20:40 Intake & Output 03/21/21 03/22/21 03/22/21 18:59 06:59 18:59 Weight 88.5 kg Assessment Bipolar Disorder, Type 1 Polysubstance abuse Other psychoactive substance abuse Plan: -Patient continues to meet criteria for inpatient psychiatric admission for symptom stabilization and safety. -Medications: Continue Effexor XR 150 mg by mouth daily for depression/anxiety Valproic level 110.4. We will decrease Depakote back to 500 mg in the am and 750 mg mg by mouth at bedtime. for mood stabilization Continue Cogentin 0.5 mg by mouth twice a day for EPS We will discontinue oral Invega. Invega Sustenna 234 mg IM was administered today. Patient is due for his second loading dose of 156 mg IM on 03/29/21. -When necessary Ativan and Haldol for agitation/aggression. -NRT - nicotine patch -SW on board for discharge planning. Encouraged the patient to participate in milieu.
[2021-03-22] MEDS: haloperidoL 1 MG TAB PO PRN (16:34)
[2021-03-22] MEDS ORDERED: DIVALPROEX 250 MG TABLET.DR PO SCH (21:00)
[2021-03-23] MEDS: VENLAFAXINE HCL ER 150 MG CAP PO SCH (08:04)
[2021-03-23] MEDS: BENZTROPINE MESYLATE 0.5 MG TAB PO SCH (08:04)
[2021-03-23] MEDS: NICOTINE 14MG/24HR PATCH TRANSDERM SCH (08:05)
[2021-03-23] MEDS: ALBUTEROL INHALER 60 PUFF/8 GM INHALER (MHU) INHALATION SCH (08:05)
[2021-03-23] MEDS ORDERED: DIVALPROEX 500 MG TABLET.DR PO SCH (09:00)
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
== END 2021-03-23 11:42 | disposition home or self-care (01) | DRG 885 ==
LOC: 3MHU 19:52
PROVIDERS: ADMIT Psychiatry & Neurology Psychiatry; ATTEND Psychiatry & Neurology Psychiatry
DX: F31.30 Bipolar disorder, current episode depressed, mild or moderate severity, unspecified (principal); F11.20 Opioid dependence, uncomplicated; F15.20 Other stimulant dependence, uncomplicated; R45.851 Suicidal ideations; F10.20 Alcohol dependence, uncomplicated; F12.10 Cannabis abuse, uncomplicated; F17.200 Nicotine dependence, unspecified, uncomplicated; F43.10 Post-traumatic stress disorder, unspecified; F90.9 Attention-deficit hyperactivity disorder, unspecified type; H11.30 Conjunctival hemorrhage, unspecified eye; J45.909 Unspecified asthma, uncomplicated; Z79.899 Other long term (current) drug therapy; Z91.5 Personal history of self-harm
CPT/HCPCS: 80061; 80164; 84443

== ENCOUNTER 2021-03-26 13:31 | Emergency (ER) | payer OTHER ==
[2021-03-26] MEDS ORDERED: SODIUM CHLORIDE 0.9% 500 ML 500 ML IV STA (13:42)
[2021-03-26] MEDS ORDERED: SODIUM CHLORIDE 0.9% 1,000 ML IV STA (13:44)
[2021-03-26 13:45] VITALS: TEMP 99.1
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
--- NOTE | 2021-03-26 14:12 | XR ---
EXAMINATION TYPE: XR chest 1V portable DATE OF EXAM: 03/26/2021 COMPARISON: NONE HISTORY: Unresponsive TECHNIQUE: Single frontal view of the chest is obtained. FINDINGS: Subsegmental changes at the lung bases. No pleural effusion or pneumothorax. No overt fail ure. Heart size normal. Arthropathy of the right shoulder. IMPRESSION: 1. There is improving right perihilar infiltrate and left lower lobe infiltrate with persistent alva es correlate for underlying pneumonia. Neoplasm not excluded.
[2021-03-26 14:27] LABS: ALT 39 U/L (4-49); AST 48 U/L (17-59); Acetaminophen <10.0 ug/mL; African American GFR (CKD) >90 (>60 ml/min/1.73 sqM); Albumin 4.2 g/dL (3.5-5.0); Alcohol 13 mg/dL; Alkaline Phosphatase 93 U/L (38-126); Anion Gap 11 mmol/L; Blood Urea Nitrogen 7 mg/dL (9-20); Calcium 9.3 mg/dL (8.4-10.2); Carbon Dioxide 24 mmol/L (22-30); Chloride 111 mmol/L (98-107); Creatine Kinase 75 U/L (55-170); Glucose 112 mg/dL (74-99); Lipase 110 U/L (23-300); Non-African American GFR(CKD) >90 (>60 ml/min/1.73 sqM); Potassium 4.6 mmol/L (3.5-5.1); Salicylate <1.0 mg/dL; Sodium 146 mmol/L (137-145); Total Bilirubin 0.4 mg/dL (0.2-1.3); Total Protein 7.3 g/dL (6.3-8.2)
--- NOTE | 2021-03-26 14:36 | CT ---
EXAMINATION TYPE: CT brain wo con DATE OF EXAM: 03/26/2021 COMPARISON: 03/04/2021 HISTORY: Altered mental status, found unresponsive on bathroom floor CT DLP: 1084.4 mGycm. Automated Exposure Control for Dose Reduction was Utilized. TECHNIQUE: CT scan of the head is performed without contrast. FINDINGS: There is no acute intracranial hemorrhage, mass effect, or midline shift identified. The ventricles and sulci are within normal limits in size. The globes are intact and changes of chronic sinusitis noted. There is deformity of the nasal bone. IMPRESSION: 1. No acute intracranial hemorrhage, mass effect, or midline shift is seen. 2. Findings suspicious for nasal bone fracture correlate clinically. Findings are suspicious for a ri ght maxillary sinus or orbital wall fracture. Slightly hyperdense changes involving the right maxilla ry sinus could represent a hemorrhagic component to the inferior orbital wall fracture. Correlate wit h facial bone CT as clinically warranted.
[2021-03-26 15:06] LABS: HCT 42.9 % (39.0-53.0); HGB 14.6 gm/dL (13.0-17.5); MCH 33.2 pg (25.0-35.0); MCV 97.6 fL (80.0-100.0); Mean Platelet Volume 7.7; Platelet Count 208 k/uL (150-450); RDW 13.5 % (11.5-15.5); WBC 10.5 k/uL (3.8-10.6)
[2021-03-26] MEDS ORDERED: SODIUM CHLORIDE 0.9% 2,000 ML IV ONE (15:25)
[2021-03-26 15:52] LABS: Amphetamine Screen,Urine Not Detected (NotDetected); Barbiturate Screen,Urine Not Detected (NotDetected); Benzodiazepines Screen,Urine Not Detected (NotDetected); Cocaine Screen,Urine Not Detected (NotDetected); Methadone Screen, Urine Not Detected (NotDetected); Opiate Screen,Urine Detected (NotDetected); Oxycodone Screen, Urine Not Detected (NotDetected); Phencyclidine Screen,Urine Not Detected (NotDetected); Tricyclic Antidepressant,Urine Not Detected (NotDetected); Urn Cannabinoid Scrn Detected (NotDetected)
[2021-03-26 16:04] LABS: Band Neutrophils % 1 %; Eosinophils # (M) 0.21 k/uL (0-0.7); Monocytes # (M) 0.84 k/uL (0-1.0); Neutrophils % (M) 49 %; Nucleated Red Blood Cells 0 /100 WBC (0-0); Total Cells Counted 100
--- NOTE | 2021-03-26 17:12 | ED ---
Medical Decision Making - Lab Data Result diagrams: 03/26/21 13:50 03/26/21 13:50 Lab Results 03/26/21 03/26/21 03/26/21 Range/Units 13:50 13:50 13:50 WBC 10.5 (3.8-10.6) k/uL RBC 4.40 (4.30-5.90) m/uL Hgb 14.6 (13.0-17.5) gm/dL Hct 42.9 (39.0-53.0) % MCV 97.6 (80.0-100.0) fL MCH 33.2 (25.0-35.0) pg MCHC 34.0 (31.0-37.0) g/dL RDW 13.5 (11.5-15.5) % Plt Count 208 (150-450) k/uL MPV 7.7 Neutrophils % (Manual) 49 % Band Neuts % (Manual) 1 % Lymphocytes % (Manual) 40 % Monocytes % (Manual) 8 % Eosinophils % (Manual) 2 % Neutrophils # (Manual) 5.20 (1.3-7.7) k/uL Lymphocytes # (Manual) 4.20 (1.0-4.8) k/uL Monocytes # (Manual) 0.84 (0-1.0) k/uL Eosinophils # (Manual) 0.21 (0-0.7) k/uL Nucleated RBCs 0 (0-0) /100 WBC Manual Slide Review Performed Sodium 146 H (137-145) mmol/L Potassium 4.6 (3.5-5.1) mmol/L Chloride 111 H (98-107) mmol/L Carbon Dioxide 24 (22-30) mmol/L Anion Gap 11 mmol/L BUN 7 L (9-20) mg/dL Creatinine 0.82 (0.66-1.25) mg/dL Est GFR (CKD-EPI)AfAm >90 (>60 ml/min/1.73 sqM) Est GFR (CKD-EPI)NonAf >90 (>60 ml/min/1.73 sqM) Glucose 112 H (74-99) mg/dL Lactic Ac Sepsis Rflx Plasma Lactic Acid Matheus (0.7-2.0) mmol/L Calcium 9.3 (8.4-10.2) mg/dL Total Bilirubin 0.4 (0.2-1.3) mg/dL AST 48 (17-59) U/L ALT 39 (4-49) U/L Alkaline Phosphatase 93 (38-126) U/L Creatine Kinase 75 (55-170) U/L Troponin I (0.000-0.034) ng/mL Total Protein 7.3 (6.3-8.2) g/dL Albumin 4.2 (3.5-5.0) g/dL Lipase 110 (23-300) U/L Salicylates <1.0 mg/dL Urine Opiates Screen Detected H (NotDetected) Ur Oxycodone Screen Not Detected (NotDetected) Urine Methadone Screen Not Detected (NotDetected) Ur Propoxyphene Screen Not Detected (NotDetected) Acetaminophen <10.0 ug/mL Ur Barbiturates Screen Not Detected (NotDetected) Valproic Acid ug/mL U Tricyclic Antidepress Not Detected (NotDetected) Ur Phencyclidine Scrn Not Detected (NotDetected) Ur Amphetamines Screen Not Detected (NotDetected) U Methamphetamines Scrn Not Detected (NotDetected) U Benzodiazepines Scrn Not Detected (NotDetected) Urine Cocaine Screen Not Detected (NotDetected) U Marijuana (THC) Screen Detected H (NotDetected) Serum Alcohol 13 mg/dL 03/26/21 03/26/21 03/26/21 Range/Units 13:50 13:50 13:50 WBC (3.8-10.6) k/uL RBC (4.30-5.90) m/uL Hgb (13.0-17.5) gm/dL Hct (39.0-53.0) % MCV (80.0-100.0) fL MCH (25.0-35.0) pg MCHC (31.0-37.0) g/dL RDW (11.5-15.5) % Plt Count (150-450) k/uL MPV Neutrophils % (Manual) % Band Neuts % (Manual) % Lymphocytes % (Manual) % Monocytes % (Manual) % Eosinophils % (Manual) % Neutrophils # (Manual) (1.3-7.7) k/uL Lymphocytes # (Manual) (1.0-4.8) k/uL Monocytes # (Manual) (0-1.0) k/uL Eosinophils # (Manual) (0-0.7) k/uL Nucleated RBCs (0-0) /100 WBC Manual Slide Review Sodium (137-145) mmol/L Potassium (3.5-5.1) mmol/L Chloride (98-107) mmol/L Carbon Dioxide (22-30) mmol/L Anion Gap mmol/L BUN (9-20) mg/dL Creatinine (0.66-1.25) mg/dL Est GFR (CKD-EPI)AfAm (>60 ml/min/1.73 sqM) Est GFR (CKD-EPI)NonAf (>60 ml/min/1.73 sqM) Glucose (74-99) mg/dL Lactic Ac Sepsis Rflx Plasma Lactic Acid Matheus 3.9 H* (0.7-2.0) mmol/L Calcium (8.4-10.2) mg/dL Total Bilirubin (0.2-1.3) mg/dL AST (17-59) U/L ALT (4-49) U/L Alkaline Phosphatase (38-126) U/L Creatine Kinase (55-170) U/L Troponin I <0.012 (0.000-0.034) ng/mL Total Protein (6.3-8.2) g/dL Albumin (3.5-5.0) g/dL Lipase (23-300) U/L Salicylates mg/dL Urine Opiates Screen (NotDetected) Ur Oxycodone Screen (NotDetected) Urine Methadone Screen (NotDetected) Ur Propoxyphene Screen (NotDetected) Acetaminophen ug/mL Ur Barbiturates Screen (NotDetected) Valproic Acid 88.6 ug/mL U Tricyclic Antidepress (NotDetected) Ur Phencyclidine Scrn (NotDetected) Ur Amphetamines Screen (NotDetected) U Methamphetamines Scrn (NotDetected) U Benzodiazepines Scrn (NotDetected) Urine Cocaine Screen (NotDetected) U Marijuana (THC) Screen (NotDetected) Serum Alcohol mg/dL 03/26/21 Range/Units 14:31 WBC (3.8-10.6) k/uL RBC (4.30-5.90) m/uL Hgb (13.0-17.5) gm/dL Hct (39.0-53.0) % MCV (80.0-100.0) fL MCH (25.0-35.0) pg MCHC (31.0-37.0) g/dL RDW (11.5-15.5) % Plt Count (150-450) k/uL MPV Neutrophils % (Manual) % Band Neuts % (Manual) % Lymphocytes % (Manual) % Monocytes % (Manual) % Eosinophils % (Manual) % Neutrophils # (Manual) (1.3-7.7) k/uL Lymphocytes # (Manual) (1.0-4.8) k/uL Monocytes # (Manual) (0-1.0) k/uL Eosinophils # (Manual) (0-0.7) k/uL Nucleated RBCs (0-0) /100 WBC Manual Slide Review Sodium (137-145) mmol/L Potassium (3.5-5.1) mmol/L Chloride (98-107) mmol/L Carbon Dioxide (22-30) mmol/L Anion Gap mmol/L BUN (9-20) mg/dL Creatinine (0.66-1.25) mg/dL Est GFR (CKD-EPI)AfAm (>60 ml/min/1.73 sqM) Est GFR (CKD-EPI)NonAf (>60 ml/min/1.73 sqM) Glucose (74-99) mg/dL Lactic Ac Sepsis Rflx Y Plasma Lactic Acid Matheus (0.7-2.0) mmol/L Calcium (8.4-10.2) mg/dL Total Bilirubin (0.2-1.3) mg/dL AST (17-59) U/L ALT (4-49) U/L Alkaline Phosphatase (38-126) U/L Creatine Kinase (55-170) U/L Troponin I (0.000-0.034) ng/mL Total Protein (6.3-8.2) g/dL Albumin (3.5-5.0) g/dL Lipase (23-300) U/L Salicylates mg/dL Urine Opiates Screen (NotDetected) Ur Oxycodone Screen (NotDetected) Urine Methadone Screen (NotDetected) Ur Propoxyphene Screen (NotDetected) Acetaminophen ug/mL Ur Barbiturates Screen (NotDetected) Valproic Acid ug/mL U Tricyclic Antidepress (NotDetected) Ur Phencyclidine Scrn (NotDetected) Ur Amphetamines Screen (NotDetected) U Methamphetamines Scrn (NotDetected) U Benzodiazepines Scrn (NotDetected) Urine Cocaine Screen (NotDetected) U Marijuana (THC) Screen (NotDetected) Serum Alcohol mg/dL - EKG Data -: EKG Interpreted by Me EKG shows normal: sinus rhythm, axis, intervals, QRS complexes, ST-T waves Rate: normal EKG Comments: EKG shows normal sinus rhythm of 87 WI interval 142 QRS 94 QT since QTC 396/476 Disposition Clinical Impression: Seizure, Lactic acidosis, Right orbit fracture, Nasal fracture, Forehead abrasion Disposition: HOME SELF-CARE Condition: Good Instructions (If sedation given, give patient instructions): Facial Fracture (ED), Epilepsy (ED), Abrasion (ED) Is patient prescribed a controlled substance at d/c from ED?: No Referrals: Raz Encinas MD [STAFF PHYSICIAN] - 1-2 days Eber Fernández MD [Primary Care Provider] - 1-2 days
[2021-03-26 17:53] VITALS: BP 139/82; PULSE 86; RESP 15
== END 2021-03-26 17:55 | disposition home or self-care (01) ==
LOC: EC 13:31
DX: S02.2XXA Fracture of nasal bones, initial encounter for closed fracture (principal); S02.31XA Fracture of orbital floor, right side, initial encounter for closed fracture; S00.81XA Abrasion of other part of head, initial encounter; G40.909 Epilepsy, unspecified, not intractable, without status epilepticus; E87.2 Acidosis; F17.200 Nicotine dependence, unspecified, uncomplicated; J45.909 Unspecified asthma, uncomplicated; Z79.899 Other long term (current) drug therapy; Z88.0 Allergy status to penicillin; X58.XXXA Exposure to other specified factors, initial encounter; Y92.511 Restaurant or cafe as the place of occurrence of the external cause
CPT/HCPCS: 36415; 93005; 80164; 80053; 82550; 83605; 83690; 84484; 85025; 80306; 80143; 80179; 71045; 70450; 99285; 96360; 96361; G0480; 80320

== ENCOUNTER 2021-03-29 15:21 | Emergency (ER) | payer OTHER ==
[2021-03-29 17:06] VITALS: BP 137/73; PULSE 103; RESP 18; TEMP 98.7
== END 2021-03-29 18:53 ==
LOC: EC 15:21
DX: Z53.21 Procedure and treatment not carried out due to patient leaving prior to being seen by health care provider (principal)
CPT/HCPCS: 36415; 80164; 99499

== ENCOUNTER 2021-03-31 14:23 | Emergency (ER) | payer OTHER ==
[2021-03-31 14:39] VITALS: BP 116/75; PULSE 111; RESP 20; TEMP 98
== END 2021-03-31 15:16 ==
LOC: EC 14:23
DX: M79.601 Pain in right arm (principal)
CPT/HCPCS: 99499

== ENCOUNTER 2021-04-02 16:55 | Emergency (ER) | payer OTHER ==
[2021-04-02 19:34] VITALS: TEMP 98.3
[2021-04-02 20:51] VITALS: BP 115/78; PULSE 80; RESP 20
[2021-04-02] MEDS ORDERED: DIVALPROEX 250 MG TABLET.DR PO STA (20:57)
[2021-04-02] MEDS ORDERED: methylPREDNISolone SOD SUCCI 125 MG/2 ML VIAL IV STA (20:57)
[2021-04-02] MEDS ORDERED: diphenhydrAMINE 50 MG/ML 1 ML VIAL IVP STA (20:57)
[2021-04-02] MEDS ORDERED: DIVALPROEX 500 MG TABLET.DR PO STA (20:57)
--- NOTE | 2021-04-02 21:42 | ED ---
Skin/Abscess/FB HPI - General Source: patient, police Mode of arrival: ambulatory <Mehreen Hartmann - Last Filed: 04/02/21 22:53> <Cas Lindseyah Delaney - Last Filed: 04/03/21 13:19> - General Chief complaint: Skin/Abscess/Foreign Body Stated complaint: Rash Time Seen by Provider: 04/02/21 20:42 - History of Present Illness Initial comments: 31 year-old male patient presents to the emergency department for evaluation of rash to his legs, arms, and back. Patient states rash started two days ago with red bumps and has progressed to large dark red lesions. Some are draining yellow fluid. Patient states that the lesions are itching and burn. He denies any fever or chills. Denies any new medications. States he was fishing leading up to the [employer] and it is possible he may have into contact with poison laurence or sumac. He is currently incarcerated, rash started prior to going to [facility]. States they did start him on bactrim and steriods. States the rash is worsening so they presented here for further evaluation. Patient denies any recent cough, shortness of breath, chest pain, abdominal pain, nausea, vomiting, diarrhea, constipation, back pain, numbness, tingling, dizziness, weakness, hematuria, dysuria, urinary urgency, urinary frequency, headache, visual changes, or any other complaints. (Mehreen Hartmann) - Related Data Home Medications Medication Instructions Recorded Confirmed Albuterol Sulfate [Proair Hfa] 2 puff INHALATION RT-Q4H PRN 03/14/21 03/26/21 Ondansetron Odt [Zofran ODT] 4 mg PO Q8H PRN 03/14/21 03/26/21 Divalproex Sodium [Depakote] 750 mg PO HS 03/26/21 03/26/21 Paliperidone IM [Invega Sustenna] 156 mg IM Q28D 03/26/21 03/26/21 Sodium Chloride 0.65% Nasal [Deep 2 spr NASAL QID PRN 03/26/21 03/26/21 Sea (Saline)] Previous Rx's Medication Instructions Recorded Benztropine Mesylate [Cogentin] 0.5 mg PO BID 30 Days tab 03/23/21 Divalproex [Depakote] 500 mg PO DAILY 30 Days tablet 03/23/21 Nicotine 14Mg/24Hr Patch [Habitrol] 1 patch TRANSDERM DAILY 30 Days 03/23/21 patch Venlafaxine HCl ER [Effexor XR] 150 mg PO DAILY 30 Days cap.er.24h 03/23/21 Allergies Allergy/AdvReac Type Severity Reaction Status Date / Time Penicillins Allergy FAMILY Verified 04/02/21 19:34 HISTORY Review of Systems ROS Other: All systems not noted in ROS Statement are negative. <Mehreen Hartmann - Last Filed: 04/02/21 22:53> ROS Other: All systems not noted in ROS Statement are negative. <Vilma Lindsey - Last Filed: 04/03/21 13:19> ROS Statement: Those systems with pertinent positive or pertinent negative responses have been documented in the HPI. Past Medical History Past Medical History: Asthma, Seizure Disorder Additional Past Medical History / Comment(s): back pain History of Any Multi-Drug Resistant Organisms: None Reported Past Surgical History: Adenoidectomy, Tonsillectomy Additional Past Anesthesia/Blood Transfusion Reaction / Comment(s): No transfusion history Past Psychological History: ADD/ADHD, Anxiety, Bipolar, Depression, PTSD Smoking Status: Current every day smoker Past Alcohol Use History: Daily Past Drug Use History: None Reported - Past Family History Father Family Medical History: Unable to Obtain <Mehreen Hartmann - Last Filed: 04/02/21 22:53> General Exam General appearance: alert, in no apparent distress, other (This is a well-dev eloped, well-nourished adult male patient in no acute distress. Vital signs upon presentation are temperature 98.3F, pulse 76, respirations 18, blood pressure 130/90, pulse ox 98% on room air.) ENT exam: Present: normal exam, normal oropharynx, mucous membranes moist Respiratory exam: Present: normal lung sounds bilaterally. Absent: respiratory distress, wheezes, rales, rhonchi, stridor Cardiovascular Exam: Present: regular rate, normal rhythm, normal heart sounds. Absent: systolic murmur, diastolic murmur, rubs, gallop, clicks GI/Abdominal exam: Present: soft, normal bowel sounds. Absent: distended, tenderness, guarding, rebound, rigid Neurological exam: Present: alert, oriented X3, CN II-XII intact Psychiatric exam: Present: normal affect, normal mood Skin exam: Present: warm, dry, intact, normal color, rash (Purpuric rash with vesicles noted to the bilateral lower extremities. There is right arm patchy e rythema with vesicles and yellow fluid drainage. Left arm patchy swelling and erythema. Erythematous papular lesions noted to the right mid back. ) <Mehreen Hartmann - Last Filed: 04/02/21 22:53> Course Vital Signs 04/02/21 04/02/21 19:33 20:48 Temperature 98.3 F Pulse Rate 76 80 Respiratory 18 20 Rate Blood Pressure 130/90 115/78 O2 Sat by Pulse 98 97 Oximetry Medical Decision Making - Lab Data Result diagrams: 04/02/21 21:21 04/02/21 21:21 <Mehreen Hartmann - Last Filed: 04/02/21 22:53> - Lab Data Result diagrams: 04/02/21 21:21 04/02/21 21:21 <Vilma Lindsey - Last Filed: 04/03/21 13:19> - Medical Decision Making 31-year-old male patient presented to the emergency department today for e valuation of rash to the lower extremities and arms. Physical examination did reveal a purpuric patchy rash to the lower extremities with overlying vesicles. There is also erythematous patches with overlying vesicles and clear yellow drainage to the bilateral forearms. Patient did go fishing prior to rash onset there is a possibility he was exposed to poison laurence. He'll be treated with steroids for 24 days. He was given a dose of Depakote here as he has not had his doses at the [facility]. He'll be discharged follow-up as soon as possible with his primary care physician. Return parameters were discussed in detail. Patient and attending officer agree with the plan. Case was discussed and the patient was evaluated by my attending Dr. Lindsey. (Mehreen Hartmann) I was available for consultation in the emergency department. The history and physical exam were done by the midlevel provider. I was consulted for this patients care. I reviewed the case with the midlevel provider and based on their presentation of the patient, I agree with the assessment, medical decision making and plan of care as documented. Chart was dictated using [employer] dictation software. Attempts were made to correct any dictation errors however some typographical errors may persist. Patient was seen during a national state of emergency due to the Covid-19 pandemic. (Vilma Lindsey) - Lab Data Lab Results 04/02/21 04/02/21 04/02/21 Range/Units 21:21 21:21 21:21 WBC 12.0 H (3.8-10.6) k/uL RBC 4.79 (4.30-5.90) m/uL Hgb 15.7 (13.0-17.5) gm/dL Hct 45.9 (39.0-53.0) % MCV 95.8 (80.0-100.0) fL MCH 32.9 (25.0-35.0) pg MCHC 34.3 (31.0-37.0) g/dL RDW 13.7 (11.5-15.5) % Plt Count 207 (150-450) k/uL MPV 7.5 Neutrophils % (Manual) 54 % Lymphocytes % (Manual) 24 % Monocytes % (Manual) 7 % Eosinophils % (Manual) 15 % Neutrophils # (Manual) 6.48 (1.3-7.7) k/uL Lymphocytes # (Manual) 2.88 (1.0-4.8) k/uL Monocytes # (Manual) 0.84 (0-1.0) k/uL Eosinophils # (Manual) 1.80 H (0-0.7) k/uL Nucleated RBCs 0 (0-0) /100 WBC Manual Slide Review Performed PT 10.2 (9.0-12.0) sec INR 0.9 (<1.2) APTT 22.7 (22.0-30.0) sec Sodium 135 L (137-145) mmol/L Potassium 4.6 (3.5-5.1) mmol/L Chloride 105 (98-107) mmol/L Carbon Dioxide 22 (22-30) mmol/L Anion Gap 8 mmol/L BUN 13 (9-20) mg/dL Creatinine 0.69 (0.66-1.25) mg/dL Est GFR (CKD-EPI)AfAm >90 (>60 ml/min/1.73 sqM) Est GFR (CKD-EPI)NonAf >90 (>60 ml/min/1.73 sqM) Glucose 93 (74-99) mg/dL Calcium 9.4 (8.4-10.2) mg/dL Total Bilirubin 0.9 (0.2-1.3) mg/dL AST 64 H (17-59) U/L ALT 65 H (4-49) U/L Alkaline Phosphatase 126 (38-126) U/L Total Protein 7.4 (6.3-8.2) g/dL Albumin 4.1 (3.5-5.0) g/dL Disposition Is patient prescribed a controlled substance at d/c from ED?: No Time of Disposition: 22:48 <Mehreen Hartmann - Last Filed: 04/02/21 22:53> <Vilma Lindsey - Last Filed: 04/03/21 13:19> Clinical Impression: Poison laurence dermatitis, Contact dermatitis Disposition: HOME SELF-CARE Condition: Good Instructions (If sedation given, give patient instructions): Contact Dermatitis (ED), Poison Laurence (ED) Additional Instructions: Complete steroid prescription in full. Follow-up with your primary care physician as soon as possible. Return for any new, worsening, or concerning symptoms. Referrals: None,Stated [Primary Care Provider] - 1-2 days
[2021-04-02 21:50] LABS: HCT 45.9 % (39.0-53.0); HGB 15.7 gm/dL (13.0-17.5); MCH 32.9 pg (25.0-35.0); MCHC 34.3 g/dL (31.0-37.0); MCV 95.8 fL (80.0-100.0); Mean Platelet Volume 7.5; Platelet Count 207 k/uL (150-450); RBC 4.79 m/uL (4.30-5.90); RDW 13.7 % (11.5-15.5)
[2021-04-02 22:00] LABS: ALT 65 U/L (4-49); African American GFR (CKD) >90 (>60 ml/min/1.73 sqM); Albumin 4.1 g/dL (3.5-5.0); Anion Gap 8 mmol/L; Blood Urea Nitrogen 13 mg/dL (9-20); Calcium 9.4 mg/dL (8.4-10.2); Carbon Dioxide 22 mmol/L (22-30); Chloride 105 mmol/L (98-107); Glucose 93 mg/dL (74-99); Non-African American GFR(CKD) >90 (>60 ml/min/1.73 sqM); Sodium 135 mmol/L (137-145); Total Bilirubin 0.9 mg/dL (0.2-1.3); Total Protein 7.4 g/dL (6.3-8.2)
[2021-04-02 22:08] LABS: INR 0.9 (<1.2); Partial Thromboplastin Time 22.7 sec (22.0-30.0); Prothrombin Time 10.2 sec (9.0-12.0)
[2021-04-02 22:16] LABS: AST 64 U/L (17-59); Alkaline Phosphatase 126 U/L (38-126); Potassium 4.6 mmol/L (3.5-5.1)
[2021-04-02 22:25] LABS: Lymphocytes # (M) 2.88 k/uL (1.0-4.8); Monocytes # (M) 0.84 k/uL (0-1.0); Neutrophils # (M) 6.48 k/uL (1.3-7.7); Neutrophils % (M) 54 %; Nucleated Red Blood Cells 0 /100 WBC (0-0); Total Cells Counted 100
== END 2021-04-02 22:59 | disposition home or self-care (01) ==
LOC: EC 16:55
DX: L23.7 Allergic contact dermatitis due to plants, except food (principal); F17.200 Nicotine dependence, unspecified, uncomplicated; G40.909 Epilepsy, unspecified, not intractable, without status epilepticus; J45.909 Unspecified asthma, uncomplicated; Z79.899 Other long term (current) drug therapy; Z88.0 Allergy status to penicillin
CPT/HCPCS: 36415; 80053; 85025; 85610; 85730; 99283; J1200; J2930

== ENCOUNTER → 2022-07-04 | Outpatient (CLI) | payer OTHER ==
--- NOTE | 2022-07-04 09:06 | US ---
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 Chronic hep C TECHNIQUE: Multiple sonographic images of the right upper quadrant are obtained. FINDINGS: EXAM MEASUREMENTS: Liver Length: 15.6 cm Gallbladder Wall: 0.2 cm CBD: 0.5 cm Right Kidney: 11.2 x 4.3 x 5.7 cm FAST BRIM POUNCER NOTES: Pancreas: 3mm pancreatic duct visualized, tail obscured by overlying bowel gas Liver: Visualized portions appeared wnl Gallbladder: wnl Evidence for sonographic Dee's sign: No CBD: wnl Right Kidney: lower pole gassed out, otherwise appeared wnl IMPRESSION: No significant abnormality appreciated at this time.
== END | disposition home or self-care (01) ==
LOC: RADUSWWP 08:36
PROVIDERS: ATTEND Internal Medicine Gastroenterology
DX: B18.2 Chronic viral hepatitis C (principal)
CPT/HCPCS: 76705